=== PATIENT | female | born 1970 | race Caucasian/White ===

== ENCOUNTER 2021-01-04 13:34 | Inpatient (IN) | payer MEDICAID, SELFPAY ==
[2021-01-04] VITALS (7 sets, daily range): BP systolic 94–130; BP diastolic 58–93; PULSE 76–117; RESP 15–20; TEMP 36.8–37.2; O2SAT 97–99; BMI 23.8
--- NOTE | ~2021-01-04 | CT_ITS ---
EXAMINATION: CT ABDOMEN AND PELVIS WITH CONTRAST CLINICAL INFORMATION: Diarrhea right red blood per rectum COMPARISON: None TECHNIQUE: Multidetector volumetric images were obtained from the superior aspect of the liver through the pubic symphysis following administration 85 mL of Omnipaque 350 intravenous contrast. Sagittal and coronal reformatted images were obtained on the technologist's workstation. Oral contrast: No This CT examination was performed using dose optimization techniques as appropriate, variously including the following: *Automated exposure control *Adjustment of mA and/or kV according to patient size (this includes techniques or standardized protocols for targeted exams where dose is matched to indication/reason for exam; i.e. extremities or head) *Use of iterative reconstruction technique DLP: 350 mGy-cm FINDINGS: LUNG BASES: The visualized lung bases are unremarkable. LIVER, GALLBLADDER, AND BILIARY TREE: Liver is incompletely evaluated. In the dome of liver is not imaged on this study. 2 small low-density lesions may well be incidental likely representing cysts. The gallbladder is unremarkable with no evidence of radiopaque gallstones, gallbladder wall thickening, or obvious pericholecystic inflammatory changes. PANCREAS: Unremarkable. SPLEEN: Unremarkable. ADRENAL GLANDS: Unremarkable. KIDNEYS AND URETERS: Cystic change. No obstruction. BLADDER: Unremarkable. GASTROINTESTINAL TRACT: Bowel pattern is felt to be nonobstructing. There is felt to be an abnormal appearance to the region of the cecum a sending colon. Findings suggest a polypoid lesion measuring approximately 3. 4 x 4 centimeters. The region of the rectum is also ill-defined and anterior in the region of the vaginal vault cervical region the soft tissue is ill-defined and there is air densities. Inflammatory process here would need to be considered. ABDOMINAL WALL: No significant hernia is appreciated. LYMPH NODES: There is no bulky adenopathy. VASCULAR: Some atherosclerotic change. No aneurysmal change. PELVIC VISCERA: As described above. Ill-definition of the rectal region in the rectum and immediate adjacent vaginal vault cervical region OSSEOUS STRUCTURES: Unremarkable. CT/CT abdomen pelvis w con IMPRESSION: This exam is felt to be abnormal. I suspect a polypoid large lesion in the proximal ascending colon. Colonoscopy recommended As described also abnormal appearing rectal region with ill-definition of the area which is also the region of the vaginal vault cervical region. Soft tissue stranding with air densities. Infectious etiology would need to be considered. Underlying malignancy cannot be excluded here as well. The liver is incompletely evaluated. The dome of liver is not in the [id number]. 2 small low-density lesions in the liver likely represent cystic change but underlying metastatic disease cannot be excluded given the findings described above Prominent left pelvic ovarian veins. Congestion syndrome cannot be excluded
--- NOTE | 2021-01-04 15:22 | ED_ITS ---
HPI - Abdominal Pain General Chief Complaint: Abdominal Pain Stated Complaint: DIARRHEA RECTAL BLEEDING Time Seen by Provider: 01/04/21 15:06 Source: patient Mode of arrival: ambulatory History of Present Illness HPI narrative: 50-year-old female with a past medical history of arthritis presenting to the ED complaining of 2 episodes of brbpr since 11:00 a.m. with associated diarrhea and lower abdominal cramping. Reports more generalized fatigue and palpitations. Denies taking anticoagulation. Denies nausea, vomiting, constipation, rectal pain, dysuria/hematuria, lightheadedness/dizziness, CP/SOB MD elicited complaint: abdominal pain Related Data Allergies Allergy/AdvReac Type Severity Reaction Status Date / Time No Known Allergies Allergy Unverified 12/03/19 17:59 Review of Systems Review of Systems Constitutional: No Fever, No Chills, + Fatigue, No Malaise ENT/Mouth: No Hearing loss, No Ear Pain, No Nasal Congestion, No Sinus Pain, No Hoarseness, No sore throat Eyes: No Eye Pain, No Swelling, No Redness Cardiovascular: No Chest Pain, No SOB, + Palpitations Respiratory: No Cough, No Sputum, No Dyspnea Gastrointestinal: No Nausea, No Vomiting, + Diarrhea, No Constipation, + Abdominal pain, +brbpr Genitourinary: No irregular bleeding, No Dysuria, No Urinary Frequency, No Hematuria, No Flank Pain Musculoskeletal: No joint pain, No Myalgias, No Joint Swelling Skin: No Skin Lesions, No rash Neuro: No Weakness, No Numbness, No Paresthesias, No Dizziness, No Headache + Yes all other systems are reviewed and are negative Physical Exam Vital Signs: Vital Signs: Last Vital Signs Temp 98.8 F 01/04/21 18:00 Pulse 114 H 01/04/21 18:11 Resp 20 01/04/21 18:00 BP 106/64 01/04/21 18:11 Pulse Ox 99 01/04/21 18:00 Body Mass Index 23.8 Const: General: cooperative, healthy appearing, no acute distress, well developed, alert and awake Orientation/consciousness: patient oriented x3 Limitations: no limitations HENMT: Head: Yes normal to inspection Ears: hearing grossly normal bilaterally General nose exam: Normal external nose present Face and sinus: Yes normal facial exam Mouth: Normal oral and palatal mucosa present Throat: Yes posterior oropharynx normal Eyes: General: appearance normal, both eyes and all related structures EOM: EOMs intact bilaterally Neck: Neck: Yes normal visual inspection and Yes no meningeal signs Resp: Effort & Inspection: normal respiratory effort Auscultation: clear to auscultation bilaterally, no rales, no rhonchi and no wheezes Cardio: Rate: regular rate Heart sounds: S1 normal heart sound present and S2 normal heart sound present GI: Other: + red stool/bleeding noted on rectal Inspection: Yes normal to inspection Palpation (GI): Soft to palpation, nontender, no guarding and not rigid Rectal Exam - Female: External hemorrhoid(s) present (Without inflammation or thrombosis) : General: Yes no CVA tenderness Back/Spine/Pelvis: Back: no CVA tenderness Skin: Rashes: no rashes Wounds: no wounds Neuro: General: patient oriented x3 and no meningeal signs Gait exam (Neuro): Normal gait present Extrem: General: Yes normal to inspection Course Course Course Narrative: -mild leukocytosis of 12.3. H&H stable. Occult stool is positive. Will obtain 4 hour repeat H&H -labs otherwise unremarkable -1810--IMPRESSION: This exam is felt to be abnormal. I suspect a polypoid large lesion in the proximal ascending colon. Colonoscopy recommended ? As described also abnormal appearing rectal region with ill-definition of the area which is also the region of the vaginal vault cervical region. Soft tissue stranding with air densities. Infectious etiology would need to be considered. Underlying malignancy cannot be excluded here as well. ? The liver is incompletely evaluated. The dome of liver is not in the [id number]. ? 2 small low-density lesions in the liver likely represent cystic change but underlying metastatic disease cannot be excluded given the findings described above ? Prominent left pelvic ovarian veins. Congestion syndrome cannot be excluded >> GI consulted -spoke to GI Dr. Tian, recommended patient be admitted, clear liquid diet can be scoped on Saturday -1835--repeat H&H with dropped to 10.2 /30.2 > results discussed with patient with diplomatic interpreter MDM - Abdominal Pain MDM Narrative Medical decision making narrative: 50-year-old female with a past medical history of arthritis presenting to the ED complaining of 2 episodes of brbpr since 11:00 a.m. with associated diarrhea and lower abdominal cramping. Reports more generalized fatigue and palpitations. On exam tachycardic, NAD, nontoxic appearing, abdomen soft/nontender, no CVAT, red stool noted on rectal with external hemorrhoids. Concern for GI bleed vs hemorrhoidal bleeding. Rule out anemia and infectious etiology Plan: Labs, UA, CT AP, occult stool, IVF, re-evaluated Medical Records Attestation: I reviewed the patient's medical records. Lab Data Attestation: I reviewed the patient's lab results. Result diagrams: 01/04/21 17:35 01/04/21 15:30 Labs: Lab Results 01/04/21 01/04/21 01/04/21 Range/Units 15:29 15:30 15:30 WBC 12.3 H (4.8-10.8) X10*3/uL RBC 3.90 L (4.20-5.50) X10*6/uL Hgb 12.0 (12.0-16.0) g/dl Hct 35.1 L (37-47) % MCV 90.0 (80-98) fL MCH 30.8 (27.0-33.0) pg MCHC 34.2 (31.0-35.0) g/dl RDW 13.0 (11.0-16.0) % Plt Count 270 (160-400) X10*3/uL MPV 10.3 (9.4-12.3) fL Immature Gran % (Auto) 0.3 (0.0-0.4) % Neut % (Auto) 79.2 H (45-73) % Lymph % (Auto) 12.1 L (20-40) % Bartholomew % (Auto) 8.0 (2-11) % Eos % (Auto) 0.2 (0-4) % Baso % (Auto) 0.2 (0-2) % Lymph # (Auto) 1.5 (1.2-4.9) X10*3/uL [place]omew # (Auto) 1.0 (0.1-1.2) X10*3/uL Eos # (Auto) 0.0 (0.0-0.4) X10*3/uL Baso # (Auto) 0.0 (0.0-0.2) X10*3/uL Abs Immat Gran (auto) 0.04 H (0.00-0.03) X10*3/uL Absolute Neuts (auto) 9.8 H (2.0-8.3) X10*3/uL Absolute Nucleated RBC 0.000 (0.0-0.012) X10*3/uL Nucleated RBC % (auto) 0.0 (0.0-0.2) /100WBC Sodium 137 (135-145) mmol/L Potassium 3.6 (3.3-5.1) mmol/L Chloride 111 H (96-108) mmol/L Carbon Dioxide 18 L (22-29) mmol/L Anion Gap 12 (12-20) BUN 10 (9-16) mg/dL Creatinine 0.67 (0.5-1.4) mg/dL Estim Creat Clear Calc 80.3 Estimated GFR > 60 Random Glucose 121 H (60-115) mg/dL Calcium 8.6 (8.4-10.2) mg/dL Magnesium 1.8 (1.6-2.6) mg/dL Total Bilirubin 0.2 (0.0-1.0) mg/dL Direct Bilirubin < 0.2 (0.0-0.5) mg/dL AST 11 (5-31) U/L ALT 6 (0-31) U/L Alkaline Phosphatase 52 (39-117) U/L Total Protein 6.3 L (6.5-8.0) g/dL Albumin 3.7 (3.5-5.0) g/dL Lipase 6 L (8-78) U/L Urine Color Urine Appearance Urine pH (5.0-8.0) Ur Specific [place] (1.005-1.025) Urine Protein (NEG-TRACE) MG/DL Urine Glucose (UA) (NEG) MG/DL Urine Ketones (NEG) MG/DL Urine Blood (NEG) Urine Nitrite (NEG) Ur Leukocyte Esterase (NEG) Urine Test (NEGATIVE) Stool Occult Blood POSITIVE (NEGATIVE) 01/04/21 01/04/21 01/04/21 Range/Units 17:35 17:37 17:37 WBC 12.7 H (4.8-10.8) X10*3/uL RBC 3.30 L (4.20-5.50) X10*6/uL Hgb 10.2 L (12.0-16.0) g/dl Hct 30.2 L (37-47) % MCV 91.5 (80-98) fL MCH 30.9 (27.0-33.0) pg MCHC 33.8 (31.0-35.0) g/dl RDW 13.1 (11.0-16.0) % Plt Count 237 (160-400) X10*3/uL MPV 10.0 (9.4-12.3) fL Immature Gran % (Auto) 0.6 H (0.0-0.4) % Neut % (Auto) 83.5 H (45-73) % Lymph % (Auto) 10.2 L (20-40) % Bartholomew % (Auto) 5.4 (2-11) % Eos % (Auto) 0.1 (0-4) % Baso % (Auto) 0.2 (0-2) % Lymph # (Auto) 1.3 (1.2-4.9) X10*3/uL [place]omew # (Auto) 0.7 (0.1-1.2) X10*3/uL Eos # (Auto) 0.0 (0.0-0.4) X10*3/uL Baso # (Auto) 0.0 (0.0-0.2) X10*3/uL Abs Immat Gran (auto) 0.07 H (0.00-0.03) X10*3/uL Absolute Neuts (auto) 10.6 H (2.0-8.3) X10*3/uL Absolute Nucleated RBC 0.000 (0.0-0.012) X10*3/uL Nucleated RBC % (auto) 0.0 (0.0-0.2) /100WBC Sodium (135-145) mmol/L Potassium (3.3-5.1) mmol/L Chloride (96-108) mmol/L Carbon Dioxide (22-29) mmol/L Anion Gap (12-20) BUN (9-16) mg/dL Creatinine (0.5-1.4) mg/dL Estim Creat Clear Calc Estimated GFR Random Glucose (60-115) mg/dL Calcium (8.4-10.2) mg/dL Magnesium (1.6-2.6) mg/dL Total Bilirubin (0.0-1.0) mg/dL Direct Bilirubin (0.0-0.5) mg/dL AST (5-31) U/L ALT (0-31) U/L Alkaline Phosphatase (39-117) U/L Total Protein (6.5-8.0) g/dL Albumin (3.5-5.0) g/dL Lipase (8-78) U/L Urine Color YELLOW Urine Appearance CLEAR Urine pH 5.5 (5.0-8.0) Ur Specific [place] <= 1.005 (1.005-1.025) Urine Protein NEG (NEG-TRACE) MG/DL Urine Glucose (UA) NEG (NEG) MG/DL Urine Ketones 15 (NEG) MG/DL Urine Blood NEG (NEG) Urine Nitrite NEG (NEG) Ur Leukocyte Esterase NEG (NEG) Urine Test NEGATIVE (NEGATIVE) Stool Occult Blood (NEGATIVE) Discharge Plan Discharge Clinical Impression: Acute GI bleeding, Lesion of colon Patient Disposition: Admitted As Inpatient PENDING SALE TO [facility] Past Medical History Attestation statement: The following information was validated with the patient. Medical History (Updated 01/04/21 @ 18:48 by SAVITA Romero) Arthritic gait Arthritis Social History Social History Alcohol intake: unknown Patient Tobacco Use Status: Tobacco use Unknown Use of substances other than those prescribed or required for medical reasons: No Advance Directives: No Advance Directives Information Provided: Yes Patient : No
[2021-01-04] MEDS: 0.9 % Sodium Chloride 1,000 ML 999 ML IVCONT (15:31)
[2021-01-04 15:37] LABS: MANUAL DIFF FLAG NO
[2021-01-04 15:39] LABS: OBS Int Ctl Valid YES; OBS1 POSITIVE (NEGATIVE)
[2021-01-04 15:42] LABS: Basophils Percent Auto 0.2 % (0-2); Eosinophils Percent Auto 0.2 % (0-4); Hematocrit 35.1 % (37-47); Imm Gran Abs Auto 0.04 X10*3/uL (0.00-0.03); Imm Gran Pct Auto 0.3 % (0.0-0.4); Lymphocytes Absolute Auto 1.5 X10*3/uL (1.2-4.9); Lymphocytes Percent Auto 12.1 % (20-40); Mean Corpuscular HGB Conc 34.2 g/dl (31.0-35.0); Mean Corpuscular Hemoglobin 30.8 pg (27.0-33.0); Mean Platelet Volume 10.3 fL (9.4-12.3); Neutrophils Absolute Auto 9.8 X10*3/uL (2.0-8.3); Neutrophils Percent Auto 79.2 % (45-73); Platelet Count 270 X10*3/uL (160-400); White Blood Count 12.3 X10*3/uL (4.8-10.8)
[2021-01-04 15:56] LABS: Alanine Aminotransferase 6 U/L (0-31); Albumin Level 3.7 g/dL (3.5-5.0); Alkaline Phosphatase 52 U/L (39-117); Anion Gap 12 (12-20); Aspartate Amino Transferase 11 U/L (5-31); Bilirubin Direct < 0.2 mg/dL (0.0-0.5); Bilirubin Total 0.2 mg/dL (0.0-1.0); Blood Urea Nitrogen 10 mg/dL (9-16); Calcium 8.6 mg/dL (8.4-10.2); Carbon Dioxide 18 mmol/L (22-29); Chloride 111 mmol/L (96-108); Creatinine Clr Calc Pharmacy 80.3; Estimated Glomerular Filt Rate > 60; Glucose Random 121 mg/dL (60-115); Lipase 6 U/L (8-78); Magnesium 1.8 mg/dL (1.6-2.6); Potassium 3.6 mmol/L (3.3-5.1); Sodium 137 mmol/L (135-145); Total Protein 6.3 g/dL (6.5-8.0)
--- NOTE | 2021-01-04 16:38 | PC.NURSE ---
Pt had a large BM with bright red blood.
[2021-01-04] MEDS: iohexoL 350 MG/ML 100 ML INFUS..BTL IV (17:02)
[2021-01-04 17:46] LABS: MANUAL DIFF FLAG NO
[2021-01-04 17:51] LABS: Basophils Percent Auto 0.2 % (0-2); Eosinophils Percent Auto 0.1 % (0-4); Hematocrit 30.2 % (37-47); Hemoglobin 10.2 g/dl (12.0-16.0); Imm Gran Abs Auto 0.07 X10*3/uL (0.00-0.03); Imm Gran Pct Auto 0.6 % (0.0-0.4); Lymphocytes Absolute Auto 1.3 X10*3/uL (1.2-4.9); Lymphocytes Percent Auto 10.2 % (20-40); Mean Corpuscular HGB Conc 33.8 g/dl (31.0-35.0); Mean Corpuscular Hemoglobin 30.9 pg (27.0-33.0); Mean Corpuscular Volume 91.5 fL (80-98); Monocytes Absolute Auto 0.7 X10*3/uL (0.1-1.2); Monocytes Percent Auto 5.4 % (2-11); Neutrophils Absolute Auto 10.6 X10*3/uL (2.0-8.3); Neutrophils Percent Auto 83.5 % (45-73); Platelet Count 237 X10*3/uL (160-400); Red Cell Distribution Width 13.1 % (11.0-16.0); White Blood Count 12.7 X10*3/uL (4.8-10.8)
[2021-01-04 17:52] LABS: Appearance Urine CLEAR; Color Urine YELLOW; Glucose Urine UA NEG (NEG); Leukocyte Esterase Urine NEG (NEG); Nitrite Urine NEG (NEG); PH 5.5 (5.0-8.0); Specific Gravity - Urine <= 1.005 (1.005-1.025); Urine Blood NEG (NEG); Urine Ketones 15 MG/DL (NEG); Urine Protein NEG (NEG-TRACE)
[2021-01-04 17:58] LABS: UPreg QC Valid YES; Urine Pregnancy NEGATIVE (NEGATIVE)
--- NOTE | 2021-01-04 18:58 | PHA.MEDREC ---
Pharmacy Consult ? Medication Reconciliation Pharmacy has completed the medication reconciliation. Patient is on no prescription or over the counter medications. Shi Tyler, PharmD [phone]
--- NOTE | 2021-01-04 19:21 | PC.NURSE ---
This RN to bedside to assist primary RN. Pt aaox4, resting on stretcher in NAD, breathing with ease on RA. Pt denies abd pain, c/o nausea and hunger. Pt requesting PO, is aware she is on a clear liquid diet only, is agreeable. This RN informs pt that this RN will inform provider of nausea and request meds for nausea control prior to providing PO. Pt is agreeable. Pt with family at bedside at this time. Pt NSR on cardiac care nurse, VSS. Pt stretcher in low locked position, rails raised, call ervin within reach. Pt covid swab obtained and sent for processing.
--- NOTE | 2021-01-04 19:24 | PC.NURSE ---
Pt's stepdaughter, Evon Frey, can be reached at [phone] with updates/questions/concerns.
[2021-01-04] MEDS: ondansetron HCL 4 MG/2 ML VIAL IVPUSH (19:31)
[2021-01-04 19:47] LABS: COVID-19 Test Negative (Negative)
--- NOTE | 2021-01-04 20:07 | P.CONOB_ITS ---
ZIPPER TRIMMER HAND - CN: HPI Data of Consult Consult date: 01/04/21 Primary Care Provider: Unknown Physician Consult Narrative Narrative: I was consulted regarding Mary Beth Padilla who is a 50 year old female who presented emergency room with rectal bleeding, CT scan showed the following: The region of the rectum is also ill-defined and anterior in the region of the vaginal vault cervical region the soft tissue is ill-defined and there is air densities. Inflammatory process here would need to be considered. The patient has regular menses, No pelvic pain or abnormal vaginal discharge, no additional obgyn hospitalist physician complaints. 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 - Review of Systems Review of Systems ROS Unobtainable: All systems reviewed & are unremarkable except as noted in HPI and below OB PMFSH Past Medical History Medical History (Updated 01/04/21 @ 20:16 by Sai Mcclure MD) Arthritic gait Arthritis Social History Social History Alcohol intake: unknown Patient Tobacco Use Status: Tobacco use Unknown Use of substances other than those prescribed or required for medical reasons: No Advance Directives: No Advance Directives Information Provided: Yes Patient : No Meds Allergies Allergy/AdvReac Type Severity Reaction Status Date / Time No Known Allergies Allergy Unverified 12/03/19 17:59 Active Medications: Current Medications Pharmacy Consult (Consult Rx Perform Med Rec) 1 each MISCELLANE ONCE PRN PRN Reason: Consult order Home Medications Medication Instructions Recorded Confirmed Last Taken Type No Known Home Meds 01/04/21 01/04/21 Unknown History [employer]IP[employer]IMMER HAND Physical Exam Vitals Vital signs: Temp Pulse Resp BP Pulse Ox 98.8 F 93 15 104/58 L 99 01/04/21 19:21 01/04/21 19:21 01/04/21 19:21 01/04/21 19:21 01/04/21 19:21 Body Mass Index 23.8 Female Genitalia (Pelvic) Bladder/Urethra: Normal meatus Vulva: No lesions Vagina: Nontender, No erythema and Normal discharge Cervix: Grossly normal, No discharge and No cervical motion tenderness Uterus: Normal size Adnexa/Parametria: Adnexal Tenderness: None, Adnexal Mass: None, Parametrial Tenderness: None and Parametrial Mass: None ZIPPER TRIMMER HAND - Results Labs CBC & Chem 7: 01/04/21 17:35 01/04/21 15:30 Labs: Short CBC 01/04/21 01/04/21 Range/Units 15:30 17:35 WBC 12.3 H 12.7 H (4.8-10.8) X10*3/uL Hgb 12.0 10.2 L (12.0-16.0) g/dl Hct 35.1 L 30.2 L (37-47) % Plt Count 270 237 (160-400) X10*3/uL BMP 01/04/21 15:30 Sodium 137 Potassium 3.6 Chloride 111 H Carbon Dioxide 18 L BUN 10 Creatinine 0.67 Calcium 8.6 Liver Function 01/04/21 Range/Units 15:30 Total Bilirubin 0.2 (0.0-1.0) mg/dL Direct Bilirubin < 0.2 (0.0-0.5) mg/dL AST 11 (5-31) U/L ALT 6 (0-31) U/L Alkaline Phosphatase 52 (39-117) U/L Albumin 3.7 (3.5-5.0) g/dL Urine 01/04/21 01/04/21 Range/Units 17:37 17:37 Urine Color YELLOW Urine Appearance CLEAR Urine pH 5.5 (5.0-8.0) Ur Specific [place] <= 1.005 (1.005-1.025) Urine Protein NEG (NEG-TRACE) MG/DL Urine Glucose (UA) NEG (NEG) MG/DL Urine Test NEGATIVE (NEGATIVE) Imaging CT scan - abdomen: Radiologist's impression: ITS Impressions Abdomen/Pelvis CT 01/04/21 15:23 IMPRESSION: This exam is felt to be abnormal. I suspect a polypoid large lesion in the proximal ascending colon. Colonoscopy recommended As described also abnormal appearing rectal region with ill-definition of the area which is also the region of the vaginal vault cervical region. Soft tissue stranding with air densities. Infectious etiology would need to be considered. Underlying malignancy cannot be excluded here as well. The liver is incompletely evaluated. The dome of liver is not in the [id number]. 2 small low-density lesions in the liver likely represent cystic change but underlying metastatic disease cannot be excluded given the findings described above Prominent left pelvic ovarian veins. Congestion syndrome cannot be excluded Assessment and Plan (1) Abnormal CT scan: Status: Acute GC and chlamydia taken, urine test was done was negative, discussed with the patient normal finding on pelvic exam, and CT scan findings that cannot be identified on thepelvic exam . The patient was reassured and instructed to call in case of any future concerns abnormal bleeding, vaginal discharge pelvic pain or any other obgyn hospitalist physician concerns.
--- NOTE | 2021-01-04 20:38 | PC.NURSE ---
PATIENT IS ALERT AND ORIENTED, DR WHALEY PREFORMING A PELVIC WITH THIS RN WITNESS, SWABS COLLECTED. DR. WHALEY INFORMING PATIENT WITH SOFTWARE DATABASE ARCHITECT FOR ASSISTANCE THAT THERE WAS NO NOTICEABLE BLEEDING ABNORMALITIES OR DISCHARGE NOTED. SWABS SENT BY THIS RN. HOSPITALIST AT BEDSIDE FOR EVALUATION OF PATIENT FOR ADMISSION TO THE HOSPITAL. NO EPISODES OF BLEEDING NOTED BY THIS RN. AWAITING HOSPITALIST ORDERS AND ROOM ASSIGNMENT.
--- NOTE | 2021-01-04 21:33 | PM.EVENT ---
Event Note Date of Service: 01/04/21 Event Note: GI--I spoke with SAVITA Romero regarding the case. I recommended admission, clear liquid diet, and F/U Hgb's. I will see patient for GI consult on 01/05/2021, order a bowel prep for later in the day on 01/05, and plan for a colonoscopy on Saturday, 01/06. Thanks
--- NOTE | 2021-01-04 22:20 | P.HPHOSP_ITS ---
History of Present Illness Date of Service: 01/04/21 Chief Complaint: GI bleed 50-year-old female with no significant past medical history presents to the hospital with multiple episodes of acute GI bleed that started around 11:00 a.m.. Patient history is obtained with the help of venture capital analyst at bedside. Patient reports that since 11:00 a.m. she had 10 episodes of acute bright red blood per rectum. She denies having any abdominal pain or previous similar episodes. Denies having any chest pain palpitations, no dizziness, no headache or change in vision. Patient denies using any NSAIDs. She reports some diarrhea with no constipation. Denies any urinary symptoms and no lower extremity edema. On further questioning patient does report about 10 lb unintentional weight loss in the past 10 years. patient hemodynamically stable with No significant abnormal vitals Labs are significant for WBC count of 12.7, initial hemoglobin of 12 which dropped to 10.2 on repeat H&H about 2 hours later, labs otherwise unremarkable Abdominal CT shows polypoid large lesion in the proximal ascending colon, rectal region with ill definition of the area which is also region of the vaginal vault/cervical region. Soft tissue stranding with air densities. Infectious etiology would need to be considered. Ob Gyne was consulted, patient underwent pelvic exam in the ED while I was present, no abnormality on the pelvic exam was found. Gastroenterology was also consulted, recommended admission, placing on clear liq uid diet, a starting bowel regiment with plan for colonoscopy on Saturday Review of Systems Review of Systems: Yes all other systems are reviewed and are negative ON LICENSE OF [facility] Medical History Arthritic gait Arthritis Family History (Updated 01/05/21 @ 06:16 by Milton Schulz MD) Maternal Aunt Breast cancer Mother Diabetes Father Colon cancer Diabetes Hypertension Pertinent family history: Colon cancer in father Surgical History (Updated 01/05/21 @ 06:17 by Milton Schulz MD) No pertinent past surgical history Social History Alcohol intake: unknown Patient Tobacco Use Status: Tobacco use Unknown Use of substances other than those prescribed or required for medical reasons: No Advance Directives: No Advance Directives Information Provided: Yes Patient : No Meds Allergies Allergy/AdvReac Type Severity Reaction Status Date / Time No Known Allergies Allergy Unverified 12/03/19 17:59 Active Medications: Current Medications Pharmacy Consult (Consult Rx Perform Med Rec) 1 each MISCELLANE ONCE PRN PRN Reason: Consult order Home Medications Medication Instructions Recorded Confirmed Last Taken Type No Known Home Meds 01/04/21 01/04/21 Unknown History Physical Exam Vital Signs and Narrative: Vital Signs: Last Vital Signs Temp 99 F 01/04/21 21:34 Pulse 85 01/04/21 21:34 Resp 20 01/04/21 21:34 BP 103/59 L 01/04/21 21:34 Pulse Ox 97 01/04/21 21:34 Body Mass Index 23.8 Results Labs CBC and Chem 7: 01/04/21 22:50 01/04/21 15:30 Labs: Laboratory Results - last 24 hr 01/04/21 01/04/21 01/04/21 15:29 15:30 15:30 MCV 90.0 MCH 30.8 MCHC 34.2 RDW 13.0 Plt Count 270 MPV 10.3 Immature Gran % (Auto) 0.3 Neut % (Auto) 79.2 H Lymph % (Auto) 12.1 L [place] % (Auto) 8.0 Eos % (Auto) 0.2 Baso % (Auto) 0.2 Lymph # (Auto) 1.5 [place] # (Auto) 1.0 Eos # (Auto) 0.0 Baso # (Auto) 0.0 Abs Immat Gran (auto) 0.04 H Absolute Neuts (auto) 9.8 H Absolute Nucleated RBC 0.000 Nucleated RBC % (auto) 0.0 Anion Gap 12 Estim Creat Clear Calc 80.3 Estimated GFR > 60 Random Glucose 121 H Calcium 8.6 Magnesium 1.8 Total Bilirubin 0.2 Direct Bilirubin < 0.2 AST 11 ALT 6 Alkaline Phosphatase 52 Total Protein 6.3 L Albumin 3.7 Lipase 6 L Urine Color Urine Appearance Urine pH Ur Specific [place] Urine Protein Urine Glucose (UA) Urine Ketones Urine Blood Urine Nitrite Ur Leukocyte Esterase Urine Test Stool Occult Blood POSITIVE COVID-19 (MANDEEP) COVID-19 Clin Com 01/04/21 01/04/21 01/04/21 17:35 17:37 17:37 MCV 91.5 MCH 30.9 MCHC 33.8 RDW 13.1 Plt Count 237 MPV 10.0 Immature Gran % (Auto) 0.6 H Neut % (Auto) 83.5 H Lymph % (Auto) 10.2 L [place] % (Auto) 5.4 Eos % (Auto) 0.1 Baso % (Auto) 0.2 Lymph # (Auto) 1.3 [place] # (Auto) 0.7 Eos # (Auto) 0.0 Baso # (Auto) 0.0 Abs Immat Gran (auto) 0.07 H Absolute Neuts (auto) 10.6 H Absolute Nucleated RBC 0.000 Nucleated RBC % (auto) 0.0 Anion Gap Estim Creat Clear Calc Estimated GFR Random Glucose Calcium Magnesium Total Bilirubin Direct Bilirubin AST ALT Alkaline Phosphatase Total Protein Albumin Lipase Urine Color YELLOW Urine Appearance CLEAR Urine pH 5.5 Ur Specific [place] <= 1.005 Urine Protein NEG Urine Glucose (UA) NEG Urine Ketones 15 Urine Blood NEG Urine Nitrite NEG Ur Leukocyte Esterase NEG Urine Test NEGATIVE Stool Occult Blood COVID-19 (MANDEEP) COVID-19 [employer] Com 01/04/21 19:18 MCV MCH MCHC RDW Plt Count MPV Immature Gran % (Auto) Neut % (Auto) Lymph % (Auto) [place] % (Auto) Eos % (Auto) Baso % (Auto) Lymph # (Auto) [place] # (Auto) Eos # (Auto) Baso # (Auto) Abs Immat Gran (auto) Absolute Neuts (auto) Absolute Nucleated RBC Nucleated RBC % (auto) Anion Gap Estim Creat Clear Calc Estimated GFR Random Glucose Calcium Magnesium Total Bilirubin Direct Bilirubin AST ALT Alkaline Phosphatase Total Protein Albumin Lipase Urine Color Urine Appearance Urine pH Ur Specific [place] Urine Protein Urine Glucose (UA) Urine Ketones Urine Blood Urine Nitrite Ur Leukocyte Esterase Urine Test Stool Occult Blood COVID-19 (MANDEEP) Negative COVID-19 Clin Com See Note Imaging Radiologist's Impressions: Impressions Abdomen/Pelvis CT 01/04/21 15:23 IMPRESSION: This exam is felt to be abnormal. I suspect a polypoid large lesion in the proximal ascending colon. Colonoscopy recommended As described also abnormal appearing rectal region with ill-definition of the area which is also the region of the vaginal vault cervical region. Soft tissue stranding with air densities. Infectious etiology would need to be considered. Underlying malignancy cannot be excluded here as well. The liver is incompletely evaluated. The dome of liver is not in the [id number]. 2 small low-density lesions in the liver likely represent cystic change but underlying metastatic disease cannot be excluded given the findings described above Prominent left pelvic ovarian veins. Congestion syndrome cannot be excluded Assessment and Plan (1) Acute GI bleeding: Status: Acute (2) Lesion of colon: Status: Acute (3) Abnormal CT scan: Status: Acute This is a 50-year-old female with no significant past medical history who presents to the hospital with GI bleed found to have abnormal CT scan with lesio n in the abdomen suggestive of malignancy # GI bleed - most likely secondary to colon malignancy - CT results as above - a Gastroenterology consult, patient will plan for colonoscopy on Saturday a.m. - H&H stable, repeat q.12 hours # abnormal CT scan with lesion of colon - does report weight loss and family history of colon cancer - most likely malignant malignant - GI consult - colonoscopy on Saturday DVT prophylaxis heparin subQ Quality Stroke Does the patient have a stroke diagnosis?: No VTE Prior VTE?: No VTE Risk Level:: Medical - moderate - high VTE Device Contraindication: Treatment Not Indicated VTE Drug Contraindication: N/A - Med Ordered
[2021-01-04 22:56] LABS: Hematocrit 29.4 % (37-47); Hemoglobin 10.1 g/dl (12.0-16.0)
[2021-01-05 00:09] VITALS: BP 110/63; PULSE 90; RESP 20; TEMP 36.7; O2SAT 99
--- NOTE | 2021-01-05 00:10 | PC.NURSE ---
CALLING HOSPITALIST FOR CLARIFICATION FOR ANTICOAGULATION THERAPY FOR PATIENT. PROVIDER STATING TO HOLD BLOOD THINNERS AT THIS TIME.
[2021-01-05 03:38] VITALS: BP 101/67; PULSE 91; RESP 22; O2SAT 98
[2021-01-05 05:10] LABS: CT PCR NOT DETECTED (Not Detect.); NG PCR NOT DETECTED (Not Detect.)
[2021-01-05 05:49] VITALS: BP 103/69; PULSE 83; RESP 19; TEMP 37.3; O2SAT 100
[2021-01-05 07:15] LABS: MANUAL DIFF FLAG NO
[2021-01-05 07:17] LABS: Basophils Percent Auto 0.3 % (0-2); Eosinophils Absolute Auto 0.1 X10*3/uL (0.0-0.4); Eosinophils Percent Auto 0.5 % (0-4); Hematocrit 29.2 % (37-47); Imm Gran Abs Auto 0.04 X10*3/uL (0.00-0.03); Imm Gran Pct Auto 0.4 % (0.0-0.4); Lymphocytes Absolute Auto 2.4 X10*3/uL (1.2-4.9); Lymphocytes Percent Auto 25.4 % (20-40); Mean Corpuscular HGB Conc 34.2 g/dl (31.0-35.0); Mean Corpuscular Hemoglobin 30.6 pg (27.0-33.0); Mean Corpuscular Volume 89.3 fL (80-98); Mean Platelet Volume 9.9 fL (9.4-12.3); Monocytes Absolute Auto 0.9 X10*3/uL (0.1-1.2); Monocytes Percent Auto 9.4 % (2-11); Neutrophils Absolute Auto 5.9 X10*3/uL (2.0-8.3); Platelet Count 233 X10*3/uL (160-400); Red Blood Count 3.27 X10*6/uL (4.20-5.50); Red Cell Distribution Width 13.2 % (11.0-16.0); White Blood Count 9.3 X10*3/uL (4.8-10.8)
[2021-01-05 07:56] LABS: Anion Gap 9 (12-20); Blood Urea Nitrogen 10 mg/dL (9-16); Calcium 8.8 mg/dL (8.4-10.2); Carbon Dioxide 23 mmol/L (22-29); Chloride 111 mmol/L (96-108); Creatinine Clr Calc Pharmacy 81.5; Estimated Glomerular Filt Rate > 60; Glucose Random 94 mg/dL (60-115); Potassium 4.2 mmol/L (3.3-5.1); Sodium 139 mmol/L (135-145)
--- NOTE | 2021-01-05 08:52 | MHC.CM.PN ---
Met with patient and diplomatic interpreter/translator in regards to discharge planning. Patient lives with her daughter and grandson, ambulates independently and had no services prior to coming to the hospital. No services anticipated to be needed because patient is not homebound. PCP is at [facility]. Patient denies having a HCP. Information provided. Patient not interested in completing one at this time. Patient has transportation when medically stable. Continue to monitor for d/c needs.
[2021-01-05 10:25] VITALS: BMI 23.8
[2021-01-05 10:32] VITALS: BP 95/72; PULSE 83; RESP 17; TEMP 36.3; O2SAT 99
[2021-01-05] MEDS: Nicotine 14 MG PATCH.TD24 TRANSDERMA (10:37)
--- NOTE | 2021-01-05 11:23 | HO.PM.IMPN ---
Subjective Subjective Date of Service: 01/05/21 Interval History: seen and examined this morning follow up for GI bleeding and new colon mass continues to have rectal bleeding. no abdominal pain. denies dizziness. feeling anxious Review of Systems Review of Systems: Yes all other systems are reviewed and are negative Constitutional Constitutional: Denies chills and Denies fever(s) Cardiovascular Cardiovascular: Denies chest pain Respiratory Respiratory: Denies cough Gastrointestinal Gastrointestinal: Denies abdominal pain, Reports hematochezia, Denies constipation and Denies vomiting Physical Exam Vital Signs: Vital Signs: Last Vital Signs Temp 97.4 F 01/05/21 10:32 Pulse 83 01/05/21 10:32 Resp 17 01/05/21 10:32 BP 95/72 01/05/21 10:32 Pulse Ox 99 01/05/21 10:32 Body Mass Index 23.8 Const: General: healthy appearing, comfortable, alert and awake Nutritional Appearance: well nourished Orientation/consciousness: patient oriented x3 HENMT: Head: Yes normocephalic and Yes atraumatic Eyes: Sclerae: sclerae normal Pupils: Equal, round and reactive pupils present Chest: Chest palpation & inspection: normal inspection of the chest Resp: Effort & Inspection: normal respiratory effort and no respiratory distress Auscultation: clear to auscultation bilaterally Cardio: Rate: regular rate Rhythm: regular rhythm GI: Inspection: No distended Palpation (GI): Soft to palpation and nontender Neuro: General: patient oriented x3 Cranial nerves: Yes CN's II-XII intact bilaterally, Yes Equal, round and reactive pupils present and Yes Bilaterally intact EOM present Objective Data Active Medications Acetaminophen (Acetaminophen 325 Mg Tablet) 650 mg PO Q6H PRN PRN Reason: Pain, Mild (Pain Scale 1-3) Hydroxyzine HCl (Hydroxyzine Hcl 25 Mg Tablet) 25 mg PO Q8H PRN PRN Reason: Anxiety Lactated Ringer's (Lr) 1,000 mls @ 100 mls/hr IVCONT .Q10H [facility] Nicotine (Nicotine 14 Mg Patch.Td24) 14 mg TRANSDERMA DAILY [facility] Last Admin: 01/05/21 10:37 Dose: 14 mg Documented by: JOSE Ondansetron HCl (Ondansetron Hcl 4 Mg/2 Ml Vial) 4 mg IVPUSH Q8H PRN PRN Reason: Nausea and Vomiting Pharmacy Consult (Consult Rx Perform Med Rec) 1 each MISCELLANE ONCE PRN PRN Reason: Consult order Sodium Chloride (0.9 % Sodium Chloride Flush 3 Ml Syringe) 3 ml IVFLUSH QSHIFT [facility] Last Admin: 01/05/21 08:38 Dose: Not Given Documented by: CAILTYN Non-Admin Reason: IV Running Labs CBC & Chem 7: 01/05/21 07:03 01/05/21 07:04 Labs: Laboratory Results - last 24 hr 01/04/21 01/04/21 01/04/21 15:29 15:30 15:30 MCV 90.0 MCH 30.8 MCHC 34.2 RDW 13.0 Plt Count 270 MPV 10.3 Immature Gran % (Auto) 0.3 Neut % (Auto) 79.2 H Lymph % (Auto) 12.1 L [place] % (Auto) 8.0 Eos % (Auto) 0.2 Baso % (Auto) 0.2 Lymph # (Auto) 1.5 [place] # (Auto) 1.0 Eos # (Auto) 0.0 Baso # (Auto) 0.0 Abs Immat Gran (auto) 0.04 H Absolute Neuts (auto) 9.8 H Absolute Nucleated RBC 0.000 Nucleated RBC % (auto) 0.0 Anion Gap 12 Estim Creat Clear Calc 80.3 Estimated GFR > 60 Random Glucose 121 H Calcium 8.6 Magnesium 1.8 Total Bilirubin 0.2 Direct Bilirubin < 0.2 AST 11 ALT 6 Alkaline Phosphatase 52 Total Protein 6.3 L Albumin 3.7 Lipase 6 L Urine Color Urine Appearance Urine pH Ur Specific [place] Urine Protein Urine Glucose (UA) Urine Ketones Urine Blood Urine Nitrite Ur Leukocyte Esterase Urine Test Stool Occult Blood POSITIVE Chlam trachomat DNA PCR COVID-19 ([facility]) COVID-19 Clin Com N.gonorrhoeae DNA (PCR) 01/04/21 01/04/21 01/04/21 17:35 17:37 17:37 MCV 91.5 MCH 30.9 MCHC 33.8 RDW 13.1 Plt Count 237 MPV 10.0 Immature Gran % (Auto) 0.6 H Neut % (Auto) 83.5 H Lymph % (Auto) 10.2 L [place] % (Auto) 5.4 Eos % (Auto) 0.1 Baso % (Auto) 0.2 Lymph # (Auto) 1.3 [place] # (Auto) 0.7 Eos # (Auto) 0.0 Baso # (Auto) 0.0 Abs Immat Gran (auto) 0.07 H Absolute Neuts (auto) 10.6 H Absolute Nucleated RBC 0.000 Nucleated RBC % (auto) 0.0 Anion Gap Estim Creat Clear Calc Estimated GFR Random Glucose Calcium Magnesium Total Bilirubin Direct Bilirubin AST ALT Alkaline Phosphatase Total Protein Albumin Lipase Urine Color YELLOW Urine Appearance CLEAR Urine pH 5.5 Ur Specific [place] <= 1.005 Urine Protein NEG Urine Glucose (UA) NEG Urine Ketones 15 Urine Blood NEG Urine Nitrite NEG Ur Leukocyte Esterase NEG Urine Test NEGATIVE Stool Occult Blood Chlam trachomat DNA PCR COVID-19 ([facility]) COVID-19 Clin Com N.gonorrhoeae DNA (PCR) 01/04/21 01/04/21 01/05/21 19:18 20:11 07:03 MCV 89.3 MCH 30.6 MCHC 34.2 RDW 13.2 Plt Count 233 MPV 9.9 Immature Gran % (Auto) 0.4 Neut % (Auto) 64.0 Lymph % (Auto) 25.4 [place] % (Auto) 9.4 Eos % (Auto) 0.5 Baso % (Auto) 0.3 Lymph # (Auto) 2.4 [place] # (Auto) 0.9 Eos # (Auto) 0.1 Baso # (Auto) 0.0 Abs Immat Gran (auto) 0.04 H Absolute Neuts (auto) 5.9 Absolute Nucleated RBC 0.000 Nucleated RBC % (auto) 0.0 Anion Gap Estim Creat Clear Calc Estimated GFR Random Glucose Calcium Magnesium Total Bilirubin Direct Bilirubin AST ALT Alkaline Phosphatase Total Protein Albumin Lipase Urine Color Urine Appearance Urine pH Ur Specific [place] Urine Protein Urine Glucose (UA) Urine Ketones Urine Blood Urine Nitrite Ur Leukocyte Esterase Urine Test Stool Occult Blood Chlam trachomat DNA PCR NOT DETECTED COVID-19 ([facility]) Negative COVID-19 Clin Com See Note N.gonorrhoeae DNA (PCR) NOT DETECTED 01/05/21 07:04 MCV MCH MCHC RDW Plt Count MPV Immature Gran % (Auto) Neut % (Auto) Lymph % (Auto) [place] % (Auto) Eos % (Auto) Baso % (Auto) Lymph # (Auto) [place] # (Auto) Eos # (Auto) Baso # (Auto) Abs Immat Gran (auto) Absolute Neuts (auto) Absolute Nucleated RBC Nucleated RBC % (auto) Anion Gap 9 L Estim Creat Clear Calc 81.5 Estimated GFR > 60 Random Glucose 94 Calcium 8.8 Magnesium Total Bilirubin Direct Bilirubin AST ALT Alkaline Phosphatase Total Protein Albumin Lipase Urine Color Urine Appearance Urine pH Ur Specific [place] Urine Protein Urine Glucose (UA) Urine Ketones Urine Blood Urine Nitrite Ur Leukocyte Esterase Urine Test Stool Occult Blood Chlam trachomat DNA PCR COVID-19 ([facility]) COVID-19 Clin Com N.gonorrhoeae DNA (PCR) Assessment and Plan (1) Abnormal CT scan: Status: Acute (2) Acute GI bleeding: Status: Acute (3) Lesion of colon: Status: Acute Assessment and Plan: This is a 50-year-old female with no significant past medical history who presents to the hospital with GI bleed found to have abnormal CT scan with lesion in the abdomen suggestive of malignancy Acute GI bleed heme + ongoing rectal bleeding most likely secondary to colon malignancy - Gastroenterology consult, plan for colonoscopy on tomorrow a.m. - follow CBC q6h abnormal CT scan with abnormal CT abdomen lesion of ascending colon and rectal region weight loss and family history of colon cancer; concerning for malignancy lesion in rectal area near vaginal vault- seen by OB, unremarkable pelvic exam - colonoscopy tomorrow, further management based on outcome Tobacco dependence Smoking cessation advised - NRT DVT prophylaxis: bautista attending: Dr. Marquis Huitron Stroke Does the patient have a stroke diagnosis?: No VTE Prior VTE?: No VTE Risk Level:: Medical - moderate - high VTE Device Contraindication: Treatment Not Indicated VTE Drug Contraindication: N/A - Med Ordered
[2021-01-05 14:10] LABS: Hematocrit 28.2 % (37-47); Hemoglobin 9.7 g/dl (12.0-16.0)
[2021-01-05] MEDS: Lactated Ringers 1,000 ML 100 ML IVCONT ×2 (14:12→23:23)
--- NOTE | 2021-01-05 14:17 | MHC.SHP ---
Pre-Procedural Eval Section A Date of Service: 01/06/21 The patient is an INPATIENT: Yes Changes since office visit: No Cold of Flu in the past 2 weeks, No New Medical Problems, No Changes in Medication and No Patient answered all questions The History & Physical has been completed within 30 days and I have reviewed it.: Yes Section B Chief Complaint: Acute GI bleed, Colon mass Allergies: Allergies Allergy/AdvReac Type Severity Reaction Status Date / Time No Known Allergies Allergy Unverified 12/03/19 17:59 Plan I have reviewed the history and physical and performed a pertinent physical examination on my patient. No changes have occurred unless specified.
--- NOTE | 2021-01-05 15:29 | PM.EVENT ---
Event Note Date of Service: 01/05/21 Event Note: GI Consult-Hx via patient with a medical diagnostic radiographer, her family, and the EMR. Imp: Lower GI bleeding with some associated diarrhea and abnormal CT of the colon suggestive of an ascending colon mass and possible rectal pathology as well. She has had a drop in Hgb, but things have been stable since admission. She has a family history of colon cancer in her father in his 70's. Her abdominal exam is benign. Rec: Colonoscopy tomorrow, 01/06, with MAC. Full consent has been obtained from her for this, including risks of bleeding and perforation. D/W patient and her 2 sisters in detail. They are comfortable with this plan. Thanks
[2021-01-05 15:56] VITALS: BP 112/61; PULSE 84; RESP 18; TEMP 36.1; O2SAT 100
[2021-01-05] MEDS: PEG 3350/Na Sulf,Bicarb,Cl/KCL 4,000 ML SOLN.RECON 4000 ML PO (16:30)
[2021-01-05 19:14] LABS: Hematocrit 26.9 % (37-47); Hemoglobin 9.3 g/dl (12.0-16.0)
[2021-01-05 19:50] VITALS: BP 96/61; PULSE 88; RESP 18; TEMP 36; O2SAT 100
[2021-01-05] MEDS: bisacodyL 5 MG TABLET.DR 10 MG PO (21:27)
--- NOTE | 2021-01-05 22:25 | CONS_ITS ---
DATE OF SERVICE: 01/05/2021 REQUESTING PHYSICIAN: SAVITA Pugh. REASON FOR CONSULTATION: Lower GI bleeding and abnormal CAT scan of colon. HISTORY OF PRESENT ILLNESS: This has been obtained from the patient with a biomedical engineering professor, from her 2 sisters, and the medical record. The patient is a 50-year-old healthy female, who describes approximately 1 or 2 days of some diarrhea at home, which then became bloody over the course of the day of admission and prompted her arrival in the ER. Prior to the past 2 days, she reports that things had been normal as far as her bowel movements are concerned. She denies any chronic diarrhea nor any previous history of bleeding. During this time, she has not had any abdominal pain, nausea, nor vomiting. The patient does describe some baseline anxiety and some anorexia on that basis, but denies any dysphagia. Many times, she will be eating things like milkshakes or Ensure as opposed to solid food because of her anxiety. She has lost about 10 pounds since the beginning of the year. Since admission here, she has been stable. She denies any abdominal pain. She has been tolerating clear liquids, but is hungry. She denies the use of any chronic aspirin nor NSAIDs. She does smoke cigarettes and marijuana, but does not use any other drugs nor alcohol. Her family history is notable for father having had colon cancer, but there is no family history of other GI malignancies nor inflammatory bowel disease. MEDICATIONS: At home, none. PAST MEDICAL HISTORY: She has some arthritis and back issues. However, she denies any history of heart disease, diabetes, stroke, nor lung disease. PAST SURGICAL HISTORY: Surgeries include a and appendectomy. SOCIAL HISTORY: She is single, but has a boyfriend. She lives with her family. She smokes cigarettes and marijuana, but does not use any alcohol. FAMILY HISTORY: As above. REVIEW OF SYSTEMS: CONSTITUTIONAL: In general, she feels well, but does have a baseline anxiety with some intermittent anorexia. SKIN: No rash. No pruritus. CARDIAC: No chest pain. PULMONARY: No coughing nor hemoptysis. GASTROINTESTINAL: As above. URINARY: No dysuria. No hematuria. NEUROLOGIC: No headache or seizures. PHYSICAL EXAMINATION: GENERAL: The patient is a pleasant, alert, well-appearing female, in no distress. VITAL SIGNS: Stable and she has been afebrile. SKIN: Warm and dry. HEENT: Anicteric sclerae. NECK: Supple without lymphadenopathy. CHEST: Clear. CARDIAC: Normal S1 and S2. ABDOMEN: Soft, nondistended. Normal bowel sounds. Nontender without palpable mass nor organomegaly. EXTREMITIES: Without edema. LABORATORY DATA: Laboratories from yesterday showed an initial white count of 12.3 and hemoglobin of 12.0 with a normal MCV and platelet count. Followup hemoglobin since admission showed hemoglobin of 10.2, 10.1, and 10.0. Her platelet count has remained normal. Her chemistries revealed normal electrolytes. BUN 10, creatinine 0.7. Normal LFTs. Albumin 3.7, lipase at 6. COVID test was negative. She had a CAT scan of the abdomen and pelvis yesterday revealing an abnormal colon in the area of the cecum and ascending colon suggesting a polypoid lesion measuring around 4 x 4 cm. The rectum was also described as abnormal with some ill-defined inflammatory changes in the rectum. There was no evidence of any bowel obstruction nor colitis. There are also 2 small lesions in the liver that were felt to represent cysts, although the radiologist describes that metastatic disease could not be excluded. IMPRESSION: Given the patient's clinical history and CT scan findings, she may very well have some type of GI malignancy involving at least the ascending colon contributing to her presentation with some lower GI bleeding. As such, she will undergo colonoscopy tomorrow with monitored anesthesia care for further evaluation. Full consent has been obtained from her for this, including risks of bleeding and perforation. At this point, things otherwise seem stable. She did have an initial drop in the hemoglobin, but this has stabilized and her abdominal exam is benign. If indeed she is found to have a colon malignancy, she may need further evaluation of her liver lesions with either MRI or ultrasound. This has been discussed in detail with the patient and her sisters. They are all comfortable with this plan. Thank you for this consultation. MD DEAN Miner/JAVIER / [id number] MTDD
[2021-01-06] VITALS (8 sets, daily range): BP systolic 88–124; BP diastolic 44–78; PULSE 81–98; RESP 16–20; TEMP 36.1–37.1; O2SAT 94–100
[2021-01-06 04:59] LABS: INTERNATIONAL NORM RATIO 1.1 (0.9-1.1); Prothrombin Time 12.2 SEC (9.9-13.0)
[2021-01-06 05:12] LABS: Anion Gap 9 (12-20); Blood Urea Nitrogen 9 mg/dL (9-16); Carbon Dioxide 26 mmol/L (22-29); Chloride 111 mmol/L (96-108); Creatinine Clr Calc Pharmacy 81.5; Estimated Glomerular Filt Rate > 60; Glucose Fasting 84 mg/dL (60-99); Sodium 142 mmol/L (135-145)
[2021-01-06 07:32] LABS: Hematocrit 27.6 % (37-47); Hemoglobin 9.6 g/dl (12.0-16.0); Mean Corpuscular HGB Conc 34.8 g/dl (31.0-35.0); Mean Corpuscular Hemoglobin 31.6 pg (27.0-33.0); Mean Corpuscular Volume 90.8 fL (80-98); Mean Platelet Volume 10.4 fL (9.4-12.3); Platelet Count 262 X10*3/uL (160-400); Red Blood Count 3.04 X10*6/uL (4.20-5.50); Red Cell Distribution Width 13.2 % (11.0-16.0); White Blood Count 7.7 X10*3/uL (4.8-10.8)
[2021-01-06] MEDS: Lactated Ringers 1,000 ML 100 ML IVCONT (09:01)
[2021-01-06] MEDS: Nicotine 14 MG PATCH.TD24 TRANSDERMA (09:01)
[2021-01-06] MEDS: LORazepam 2 MG/ML VIAL 0.5 MG IVPUSH (10:19)
--- NOTE | 2021-01-06 10:35 | HO.PM.IMPN ---
Subjective Subjective Date of Service: 01/06/21 Interval History: seen and examined this AM hungry no pain denies rectal bleed reports vaginal bleed (started her period) Review of Systems negative except interval history Physical Exam Vital Signs: Vital Signs: Last Vital Signs Temp 98.3 F 01/06/21 07:52 Pulse 85 01/06/21 07:52 Resp 20 01/06/21 07:52 BP 107/72 01/06/21 07:52 Pulse Ox 99 01/06/21 07:52 Body Mass Index 23.8 Const: Other: General - no acute distress, appears comfortable Cardiovascular - regular rate and rhythm, S1-S2 Lungs - normal respiratory effort, clear to auscultation bilaterally, no wheezing Abdomen - soft, nontender, no rebound or guarding Extremities - no edema bilaterally Neuro - awake and alert, no focal deficits Objective Data Active Medications Acetaminophen (Acetaminophen 325 Mg Tablet) 650 mg PO Q6H PRN PRN Reason: Pain, Mild (Pain Scale 1-3) Hydroxyzine HCl (Hydroxyzine Hcl 25 Mg Tablet) 25 mg PO Q8H PRN PRN Reason: Anxiety Lactated Ringer's (Lr) 1,000 mls @ 100 mls/hr IVCONT .Q10H [facility] Last Admin: 01/06/21 09:01 Dose: 100 mls/hr Documented by: JESSICA Nicotine (Nicotine 14 Mg Patch.Td24) 14 mg TRANSDERMA DAILY [facility] Last Admin: 01/06/21 09:01 Dose: 14 mg Documented by: JESSICA Ondansetron HCl (Ondansetron Hcl 4 Mg/2 Ml Vial) 4 mg IVPUSH Q8H PRN PRN Reason: Nausea and Vomiting Pharmacy Consult (Consult Rx Perform Med Rec) 1 each MISCELLANE ONCE PRN PRN Reason: Consult order Sodium Chloride (0.9 % Sodium Chloride Flush 3 Ml Syringe) 3 ml IVFLUSH QSHIFT [facility] Last Admin: 01/06/21 09:01 Dose: Not Given Documented by: JESSICA Non-Admin Reason: IV Running Labs CBC & Chem 7: 01/06/21 04:24 01/06/21 04:24 Labs: Laboratory Results - last 24 hr 01/06/21 01/06/21 01/06/21 04:24 04:24 04:24 MCV 90.8 MCH 31.6 MCHC 34.8 RDW 13.2 Plt Count 262 MPV 10.4 Absolute Nucleated RBC 0.000 Nucleated RBC % (auto) 0.0 PT 12.2 INR 1.1 Anion Gap 9 L Estim Creat Clear Calc 81.5 Estimated GFR > 60 Fasting Glucose 84 Calcium 9.0 Assessment and Plan (1) Abnormal CT scan: Status: Acute (2) Acute GI bleeding: Status: Acute (3) Lesion of colon: Status: Acute Assessment and Plan: This is a 50-year-old female with no significant past medical history who presents to the hospital with GI bleed found to have abnormal CT scan with lesion in the abdomen suggestive of malignancy Acute GI bleed heme + bleeding stopped completed prep last night -- plan for scope today concern for colonic malignancy further work up pending results of scope abnormal CT scan with abnormal CT abdomen lesion of ascending colon and rectal region weight loss and family history of colon cancer; concerning for malignancy lesion in rectal area near vaginal vault- seen by OB, unremarkable pelvic exam - colonoscopy tomorrow, further management based on outcome Tobacco dependence Smoking cessation advised NRT DVT pptx, mechanical Full Code Quality Stroke Does the patient have a stroke diagnosis?: No VTE Prior VTE?: No VTE Risk Level:: Medical - moderate - high VTE Device Contraindication: Treatment Not Indicated VTE Drug Contraindication: N/A - Med Ordered
--- NOTE | 2021-01-06 10:52 | HO.ANESPROP2 ---
[facility] Active Problems Active Problems: All Active Problems (Updated 01/04/21 @ 20:16 by Sai Mcclure MD) Abnormal CT scan (Acute) Acute GI bleeding (Acute) Lesion of colon (Acute) Past Medical History Medical History Arthritic gait Arthritis Family History Family History (Updated 01/05/21 @ 06:16 by Milton Schulz MD) Maternal Aunt Breast cancer Mother Diabetes Father Colon cancer Diabetes Hypertension Family history of problems with anesthesia: No Surgical History Surgical History (Updated 01/05/21 @ 06:17 by Milton Schulz MD) No pertinent past surgical history History of Problems with Anesthesia: No Social History Social History Household Members: Family Housing: Apartment Do you presently have visiting nurse or other home services: No Alcohol intake: unknown Patient Tobacco Use Status: Current everyday Tobacco user Substance Use Type: Marijuana service: No Current occupational status: unemployed Meds Allergies Allergy/AdvReac Type Severity Reaction Status Date / Time No Known Allergies Allergy Unverified 12/03/19 17:59 Active Medications: Current Medications Acetaminophen (Acetaminophen 325 Mg Tablet) 650 mg PO Q6H PRN PRN Reason: Pain, Mild (Pain Scale 1-3) Hydroxyzine HCl (Hydroxyzine Hcl 25 Mg Tablet) 25 mg PO Q8H PRN PRN Reason: Anxiety Lactated Ringer's (Lr) 1,000 mls @ 100 mls/hr IVCONT .Q10H [facility] Last Admin: 01/06/21 09:01 Dose: 100 mls/hr Documented by: Nicotine (Nicotine 14 Mg Patch.Td24) 14 mg TRANSDERMA DAILY [facility] Last Admin: 01/06/21 09:01 Dose: 14 mg Documented by: Ondansetron HCl (Ondansetron Hcl 4 Mg/2 Ml Vial) 4 mg IVPUSH Q8H PRN PRN Reason: Nausea and Vomiting Pharmacy Consult (Consult Rx Perform Med Rec) 1 each MISCELLANE ONCE PRN PRN Reason: Consult order Sodium Chloride (0.9 % Sodium Chloride Flush 3 Ml Syringe) 3 ml IVFLUSH QSHIFT [facility] Last Admin: 01/06/21 09:01 Dose: Not Given Documented by: Home Medications Medication Instructions Recorded Confirmed Last Taken Type No Known Home Meds 01/04/21 01/04/21 Unknown History Exam Exam Date and Time: January 06, 2021 1052 Height,Weight and Vital Signs: Height 5 ft 2 in Weight 58.967 kg Last Vital Signs Temp 98.3 F 01/06/21 07:52 Pulse 85 01/06/21 07:52 Resp 20 01/06/21 07:52 BP 107/72 01/06/21 07:52 Pulse Ox 99 01/06/21 07:52 Pertinent Lab Results Pertinent Lab Results: Laboratory Tests 01/04/21 01/04/21 01/04/21 15:29 15:30 15:30 WBC 12.3 H RBC 3.90 L Hgb 12.0 Hct 35.1 L MCV 90.0 MCH 30.8 MCHC 34.2 RDW 13.0 Plt Count 270 MPV 10.3 Immature Gran % (Auto) 0.3 Neut % (Auto) 79.2 H Lymph % (Auto) 12.1 L [place] % (Auto) 8.0 Eos % (Auto) 0.2 Baso % (Auto) 0.2 Lymph # (Auto) 1.5 [place] # (Auto) 1.0 Eos # (Auto) 0.0 Baso # (Auto) 0.0 Abs Immat Gran (auto) 0.04 H Absolute Neuts (auto) 9.8 H Absolute Nucleated RBC 0.000 Nucleated RBC % (auto) 0.0 PT INR Sodium 137 Potassium 3.6 Chloride 111 H Carbon Dioxide 18 L Anion Gap 12 BUN 10 Creatinine 0.67 Estim Creat Clear Calc 80.3 Estimated GFR > 60 Random Glucose 121 H Fasting Glucose Calcium 8.6 Magnesium 1.8 Total Bilirubin 0.2 Direct Bilirubin < 0.2 AST 11 ALT 6 Alkaline Phosphatase 52 Total Protein 6.3 L Albumin 3.7 Lipase 6 L Urine Color Urine Appearance Urine pH Ur Specific [place] Urine Protein Urine Glucose (UA) Urine Ketones Urine Blood Urine Nitrite Ur Leukocyte Esterase Urine Test Stool Occult Blood POSITIVE Chlam trachomat DNA PCR COVID-19 ([facility]) COVID-19 Clin Com N.gonorrhoeae DNA (PCR) 01/04/21 01/04/21 01/04/21 17:35 17:37 17:37 WBC 12.7 H RBC 3.30 L Hgb 10.2 L Hct 30.2 L MCV 91.5 MCH 30.9 MCHC 33.8 RDW 13.1 Plt Count 237 MPV 10.0 Immature Gran % (Auto) 0.6 H Neut % (Auto) 83.5 H Lymph % (Auto) 10.2 L [place] % (Auto) 5.4 Eos % (Auto) 0.1 Baso % (Auto) 0.2 Lymph # (Auto) 1.3 [place] # (Auto) 0.7 Eos # (Auto) 0.0 Baso # (Auto) 0.0 Abs Immat Gran (auto) 0.07 H Absolute Neuts (auto) 10.6 H Absolute Nucleated RBC 0.000 Nucleated RBC % (auto) 0.0 PT INR Sodium Potassium Chloride Carbon Dioxide Anion Gap BUN Creatinine Estim Creat Clear Calc Estimated GFR Random Glucose Fasting Glucose Calcium Magnesium Total Bilirubin Direct Bilirubin AST ALT Alkaline Phosphatase Total Protein Albumin Lipase Urine Color YELLOW Urine Appearance CLEAR Urine pH 5.5 Ur Specific [place] <= 1.005 Urine Protein NEG Urine Glucose (UA) NEG Urine Ketones 15 Urine Blood NEG Urine Nitrite NEG Ur Leukocyte Esterase NEG Urine Test NEGATIVE Stool Occult Blood Chlam trachomat DNA PCR COVID-19 ([facility]) COVID-19 Clin Com N.gonorrhoeae DNA (PCR) 01/04/21 01/04/21 01/04/21 19:18 20:11 22:50 WBC RBC Hgb 10.1 L Hct 29.4 L MCV MCH MCHC RDW Plt Count MPV Immature Gran % (Auto) Neut % (Auto) Lymph % (Auto) [place] % (Auto) Eos % (Auto) Baso % (Auto) Lymph # (Auto) [place] # (Auto) Eos # (Auto) Baso # (Auto) Abs Immat Gran (auto) Absolute Neuts (auto) Absolute Nucleated RBC Nucleated RBC % (auto) PT INR Sodium Potassium Chloride Carbon Dioxide Anion Gap BUN Creatinine Estim Creat Clear Calc Estimated GFR Random Glucose Fasting Glucose Calcium Magnesium Total Bilirubin Direct Bilirubin AST ALT Alkaline Phosphatase Total Protein Albumin Lipase Urine Color Urine Appearance Urine pH Ur Specific [place] Urine Protein Urine Glucose (UA) Urine Ketones Urine Blood Urine Nitrite Ur Leukocyte Esterase Urine Test Stool Occult Blood Chlam trachomat DNA PCR NOT DETECTED COVID-19 ([facility]) Negative COVID-19 Clin Com See Note N.gonorrhoeae DNA (PCR) NOT DETECTED 01/05/21 01/05/21 01/05/21 07:03 07:04 13:51 WBC 9.3 RBC 3.27 L Hgb 10.0 L 9.7 L Hct 29.2 L 28.2 L MCV 89.3 MCH 30.6 MCHC 34.2 RDW 13.2 Plt Count 233 MPV 9.9 Immature Gran % (Auto) 0.4 Neut % (Auto) 64.0 Lymph % (Auto) 25.4 [place] % (Auto) 9.4 Eos % (Auto) 0.5 Baso % (Auto) 0.3 Lymph # (Auto) 2.4 [place] # (Auto) 0.9 Eos # (Auto) 0.1 Baso # (Auto) 0.0 Abs Immat Gran (auto) 0.04 H Absolute Neuts (auto) 5.9 Absolute Nucleated RBC 0.000 Nucleated RBC % (auto) 0.0 PT INR Sodium 139 Potassium 4.2 Chloride 111 H Carbon Dioxide 23 Anion Gap 9 L BUN 10 Creatinine 0.66 Estim Creat Clear Calc 81.5 Estimated GFR > 60 Random Glucose 94 Fasting Glucose Calcium 8.8 Magnesium Total Bilirubin Direct Bilirubin AST ALT Alkaline Phosphatase Total Protein Albumin Lipase Urine Color Urine Appearance Urine pH Ur Specific [place] Urine Protein Urine Glucose (UA) Urine Ketones Urine Blood Urine Nitrite Ur Leukocyte Esterase Urine Test Stool Occult Blood Chlam trachomat DNA PCR COVID-19 ([facility]) COVID-19 Clin Com N.gonorrhoeae DNA (PCR) 01/05/21 01/06/21 01/06/21 19:04 04:24 04:24 WBC RBC Hgb 9.3 L Hct 26.9 L MCV MCH MCHC RDW Plt Count MPV Immature Gran % (Auto) Neut % (Auto) Lymph % (Auto) [place] % (Auto) Eos % (Auto) Baso % (Auto) Lymph # (Auto) [place] # (Auto) Eos # (Auto) Baso # (Auto) Abs Immat Gran (auto) Absolute Neuts (auto) Absolute Nucleated RBC Nucleated RBC % (auto) PT 12.2 INR 1.1 Sodium 142 Potassium 4.0 Chloride 111 H Carbon Dioxide 26 Anion Gap 9 L BUN 9 Creatinine 0.66 Estim Creat Clear Calc 81.5 Estimated GFR > 60 Random Glucose Fasting Glucose 84 Calcium 9.0 Magnesium Total Bilirubin Direct Bilirubin AST ALT Alkaline Phosphatase Total Protein Albumin Lipase Urine Color Urine Appearance Urine pH Ur Specific [place] Urine Protein Urine Glucose (UA) Urine Ketones Urine Blood Urine Nitrite Ur Leukocyte Esterase Urine Test Stool Occult Blood Chlam trachomat DNA PCR COVID-19 ([facility]) COVID-19 Clin Com N.gonorrhoeae DNA (PCR) 01/06/21 04:24 WBC 7.7 RBC 3.04 L Hgb 9.6 L Hct 27.6 L MCV 90.8 MCH 31.6 MCHC 34.8 RDW 13.2 Plt Count 262 MPV 10.4 Immature Gran % (Auto) Neut % (Auto) Lymph % (Auto) [place] % (Auto) Eos % (Auto) Baso % (Auto) Lymph # (Auto) [place] # (Auto) Eos # (Auto) Baso # (Auto) Abs Immat Gran (auto) Absolute Neuts (auto) Absolute Nucleated RBC 0.000 Nucleated RBC % (auto) 0.0 PT INR Sodium Potassium Chloride Carbon Dioxide Anion Gap BUN Creatinine Estim Creat Clear Calc Estimated GFR Random Glucose Fasting Glucose Calcium Magnesium Total Bilirubin Direct Bilirubin AST ALT Alkaline Phosphatase Total Protein Albumin Lipase Urine Color Urine Appearance Urine pH Ur Specific [place] Urine Protein Urine Glucose (UA) Urine Ketones Urine Blood Urine Nitrite Ur Leukocyte Esterase Urine Test Stool Occult Blood Chlam trachomat DNA PCR COVID-19 ([facility]) COVID-19 Clin Com N.gonorrhoeae DNA (PCR) Airway Mallampati Class: II TM Dist: >3cm Neck ROM: Full Heart: rrr Lungs: cta Assessment and Plan Assessment Anesthesia Assessment: Anesthesia Plan Discussed and Chart Reviewed Final Anesthetic Review Family History of Problems with Anesthesia: No History of Problems with Anesthesia: No NPO: Yes ASA Class: II Final Preanesthetic Review: No Changes in Pt Med Stat, Meds/Allgs Chart Reviewed and Consent Obtained/Reviewed Patient Risk: Intermediate Procedure Risk: Intermediate Anesthetic Plan Anesthetic Plan: MAC: Disposition: Standard PACU
--- NOTE | 2021-01-06 12:51 | P.EN_ITS ---
Event Note Date of Service: 01/06/21 Event Note: GI-Colonoscopy to the cecum and TI with biopsies and cold snare po lypectomy-Full note dictated Findings: 1. Large broad-based polypoid mass in region of Cecum/Ascending colon-not amenable to endoscopic resection. Multiple bx taken 2. Approx 15mm polyp on a stalk just distal to above mass-not bx nor removed 3. Approx 5mm rectal polyp removed with a cold snare polypetomy and recovered 4. Multiple 5mm or less polyps in left colon and rectum-not bx nor removed 5. Int/Ext Hemorrhoids 6. No bleeding nor old blood in the colon Plan: Check path, surgery consult before discharge, advance diet, F/U Hgb in AM, avoid aspirin and NSAIDs retirement. D/W patient and family. Thanks
--- NOTE | 2021-01-06 12:57 | PM.OP ---
Brief Operative Note Date of Service: 01/06/21 Pre-op diagnosis: Lower GI bleed Post-op diagnosis: other (Colon mass, colon polyps) Procedure: Colonoscopy to the cecum and TI with biopsies and cold snare polypectomy Surgeon: Broderick Tian Anesthesia: MAC Was an Acute Care Nursing Assistant used for this Procedure?: No Estimated blood loss (mL): 5.0 Pathology: other (A. Mass near cecum and very proximal ascending colon B. Rectal polyp) Condition: stable Disposition: PACU
[2021-01-06] MEDS: ondansetron HCL 4 MG/2 ML VIAL IVPUSH (14:37)
--- NOTE | 2021-01-06 15:23 | P.CONGS_ITS ---
History of Present Illness Consult details Consult date: 01/06/21 Narrative: 50-year-old female patient who developed bloody stool on Saturday which continued over the next day. As a result she presented to the emergency department for further evaluation. She denies a previous history of rectal bleeding. She denies abdominal pain, nausea, vomiting, or other abdominal symptoms. She reports losing approximately 10 lb since the beginning of the year, which she attributes to anxiety. She subsequently underwent colonoscopy earlier today which revealed a large colonic lesion at the junction of the cecum and ascending colon suggestive of a colon neoplasm. Patient is eager to be dis charged to home today therefore surgical consultation was requested to arrange for probable right colectomy once pathology results are available. Review of Systems Review of Systems: Yes all other systems are reviewed and are negative Constitutional: Constitutional: Reports anorexia, Denies chills, Denies fever(s) and Reports weight loss Eyes: Eyes: Denies change in vision Cardiovascular: Cardiovascular: Reports no additional cardiovascular complaints Respiratory: Respiratory: Reports no additional respiratory complaints Gastrointestinal: Gastrointestinal: Denies abdominal pain, Reports hematochezia, Denies change in stool character and Reports loose stools Genitourinary: Genitourinary: Reports no additional female genitourinary complaints Musculoskeletal: Musculoskeletal: Reports no additional musculoskeletal complaints Psychiatric: Psychiatric: Reports anxiety Hematologic/Lymphatic: Hematologic/Lymphatic: Reports no additional hematologic/lymphatic complaints and Denies lymphadenopathy PMFSH Past Medical History Medical History Arthritic gait Arthritis Family History Family History Maternal Aunt Breast cancer Mother Diabetes Father Colon cancer Diabetes Hypertension Surgical History Surgical History No pertinent past surgical history Social History Social History Household Members: Family Housing: Apartment Do you presently have visiting nurse or other home services: No Alcohol intake: unknown Patient Tobacco Use Status: Current everyday Tobacco user Tobacco use type: Cigarette Second Hand Smoke Exposure: No Substance Use Type: Marijuana service: No Current occupational status: unemployed Meds Allergies Allergy/AdvReac Type Severity Reaction Status Date / Time No Known Allergies Allergy Unverified 12/03/19 17:59 Active Medications: Current Medications Acetaminophen (Acetaminophen 325 Mg Tablet) 650 mg PO Q6H PRN PRN Reason: Pain, Mild (Pain Scale 1-3) Hydroxyzine HCl (Hydroxyzine Hcl 25 Mg Tablet) 25 mg PO Q8H PRN PRN Reason: Anxiety Lactated Ringer's (Lr) 1,000 mls @ 100 mls/hr IVCONT .Q10H [facility] Last Admin: 01/06/21 09:01 Dose: 100 mls/hr Documented by: Nicotine (Nicotine 14 Mg Patch.Td24) 14 mg TRANSDERMA DAILY [facility] Last Admin: 01/06/21 09:01 Dose: 14 mg Documented by: Ondansetron HCl (Ondansetron Hcl 4 Mg/2 Ml Vial) 4 mg IVPUSH Q8H PRN PRN Reason: Nausea and Vomiting Last Admin: 01/06/21 14:37 Dose: 4 mg Documented by: Pharmacy Consult (Consult Rx Perform Med Rec) 1 each MISCELLANE ONCE PRN PRN Reason: Consult order Sodium Chloride (0.9 % Sodium Chloride Flush 3 Ml Syringe) 3 ml IVFLUSH QSHIFT [facility] Last Admin: 01/06/21 09:01 Dose: Not Given Documented by: Home Medications Medication Instructions Recorded Confirmed Last Taken Type No Known Home Meds 01/04/21 01/04/21 Unknown History Physical Exam Vital Signs: Vital Signs: Last Vital Signs Temp 97.1 F 01/06/21 13:49 Pulse 85 01/06/21 13:49 Resp 18 01/06/21 13:49 BP 104/68 01/06/21 13:49 Pulse Ox 100 01/06/21 13:49 Body Mass Index 23.8 Const: General: cooperative, no acute distress, well developed, alert and awake Nutritional Appearance: well nourished Orientation/consciousness: patient oriented x3 Limitations: no limitations HENMT: Head: Yes normocephalic and Yes atraumatic Ears: hearing grossly normal bilaterally Eyes: Sclerae: sclerae normal EOM: EOMs intact bilaterally Resp: Effort & Inspection: normal respiratory effort, no audible wheezes, no cough and no respiratory distress Auscultation: clear to auscultation bilaterally Cardio: Jugular venous distension: no JVD Rate: regular rate Rhythm: regular rhythm GI: Inspection: Yes normal to inspection Palpation (GI): Soft to palpation, not firm, nontender, no guarding and hepatosplenomegaly present Percussion: Yes normal to percussion Auscultation: normal bowel sounds Rectal Exam - Female: deferred Skin: General skin exam: no rashes or lesions noted Neuro: General: patient oriented x3 Extrem: General: Yes no clubbing, cyanosis or edema Results Labs Result diagrams: 01/06/21 04:24 01/06/21 04:24 Labs: Abnormal lab results 01/05/21 01/06/21 01/06/21 Range/Units 19:04 04:24 04:24 RBC 3.04 L (4.20-5.50) X10*6/uL Hgb 9.3 L 9.6 L (12.0-16.0) g/dl Hct 26.9 L 27.6 L (37-47) % Chloride 111 H (96-108) mmol/L Anion Gap 9 L (12-20) Short CBC 01/05/21 01/06/21 Range/Units 19:04 04:24 WBC 7.7 (4.8-10.8) X10*3/uL Hgb 9.3 L 9.6 L (12.0-16.0) g/dl Hct 26.9 L 27.6 L (37-47) % Plt Count 262 (160-400) X10*3/uL BMP 01/06/21 04:24 Sodium 142 Potassium 4.0 Chloride 111 H Carbon Dioxide 26 BUN 9 Creatinine 0.66 Calcium 9.0 Urine 01/04/21 01/04/21 Range/Units 17:37 17:37 Urine Color YELLOW Urine Appearance CLEAR Urine pH 5.5 (5.0-8.0) Ur Specific [place] <= 1.005 (1.005-1.025) Urine Protein NEG (NEG-TRACE) MG/DL Urine Glucose (UA) NEG (NEG) MG/DL Urine Test NEGATIVE (NEGATIVE) All other labs normal. Assessment and Plan (1) Lesion of colon: Status: Acute (2) Acute GI bleeding: Status: Acute 50-year-old female patient presenting with bleeding per rectum earlier in the week found to have a right colon mass by colonoscopy. Biopsies were obtained by Dr. Tian and are pending at this time. Results were discussed with the patient and the probable need for a right colectomy discussed. Patient is eager to be discharged to home today. I can see her in the office next week once the biopsies are resulted and make arrangements for surgery as a short-stay admit. The patient expressed understanding and agrees with the plan. Discussed with Dr. Coh and Alicia Vela PA-C. Procedures Date of Service Date of Service: 01/06/21
--- NOTE | 2021-01-06 15:54 | P.DS_ITS ---
DS: Providers Provider Date of Service: 01/06/21 Date of admission: 01/04/21 22:20 Date of discharge: 01/06/21 Primary care physician: Rufina Wolfe NP Consults: 01/04/21 22:29 Consult to Gastroenterology Routine Consulting Provider: Broderick Tian Reason for consultation: GI bleed Has provider been notified: Yes 01/06/21 13:48 Consult to General Surgery Routine Consulting Provider: [facility] General Surgeons Reason for consultation: Colon mass Has provider been notified: No Attending physician on discharge: Juan Cho Discharging clinician: Alicia Vela DS: Diagnosis Discharge Diagnosis (1) Lesion of colon: Status: Acute (2) Acute GI bleeding: Status: Acute DS: Summary Hospital Course Hospital Course: From 50-year-old female with no significant past medical history presents to the hospital with multiple episodes of acute GI bleed that started around 11:00 a.m..? Patient history is obtained with the help of car salesman at bedside.? Patient reports that since 11:00 a.m. she had 10 episodes of acute bright red blood per rectum.? She denies having any abdominal pain or previous similar episodes.? Denies having any chest pain palpitations, no dizziness, no headache or change in vision.? Patient denies using any NSAIDs.? She reports some diarrhea with no constipation.? Denies any urinary symptoms and no lower extremity edema.? On further questioning patient does report about 10 lb unintentional weight loss in the past 10 years. ?patient hemodynamically stable with No significant abnormal vitals Labs are significant for WBC count of 12.7, initial hemoglobin of 12 which dropped to 10.2 on repeat H&H about 2 hours later, labs otherwise unremarkable Abdominal CT shows polypoid large lesion in the proximal ascending colon, rectal region with ill definition of the area which is also region of the vaginal vault/cervical region.? Soft tissue stranding with air densities.? Infectious etiology would need to be considered. Yard Pipe Grader was consulted, patient underwent pelvic exam in the ED while I was present, no abnormality on the pelvic exam was found. Gastroenterology was also consulted, recommended admission, placing on clear liquid diet, a starting bowel regiment with plan for colonoscopy on Saturday GI bleeding. Likely related to colon mass. She was seen by GI and prepped for colonoscopy with results as below. Patient has not had any further GI bleeding and H/H has remained stable overnight. She was recommended to stay overnight to recheck CBC in am, but she wishes to return home tonight. She was seen by general surgery prior to discharge and will follow up with Dr. Alamo in the office next week. She is instructed to return to the emergency department if she has any rectal bleeding or dark stools. She should repeat CBC on Saturday. She is instructed to avoid NSAIDs or aspirin. Pathology report is pending at the time of discharge. Colonoscopy 01/06/2021 Findings: 1. Large broad-based polypoid mass in region of Cecum/Ascending colon-not amenable to endoscopic resection. Multiple bx taken 2. Approx 15mm polyp on a stalk just distal to above mass-not bx nor removed 3. Approx 5mm rectal polyp removed with a cold snare polypetomy and recovered 4. Multiple 5mm or less polyps in left colon and rectum-not bx nor removed 5. Int/Ext Hemorrhoids 6. No bleeding nor old blood in the colon Time Spent with Patient Time attestation: Total time spent providing and/or coordinating discharge services: Discharge coordination time: Greater than 30 minutes Quality: Stroke Does the patient have a stroke diagnosis?: No Physical Exam Vital Signs: Vital Signs: Last Vital Signs Temp 97.1 F 01/06/21 13:49 Pulse 85 01/06/21 13:49 Resp 18 01/06/21 13:49 BP 104/68 01/06/21 13:49 Pulse Ox 100 01/06/21 13:49 Body Mass Index 23.8 Const: Nutritional Appearance: well nourished Orientation/consciousness: patient oriented x3 HENMT: Head: Yes normocephalic and Yes atraumatic Eyes: Sclerae: sclerae normal Pupils: Equal, round and reactive pupils present Chest: Chest palpation & inspection: normal inspection of the chest Resp: Effort & Inspection: normal respiratory effort and no respiratory distress Cardio: Rate: regular rate Rhythm: regular rhythm GI: Palpation (GI): Soft to palpation and nontender Neuro: General: patient oriented x3 Cranial nerves: Yes CN's II-XII intact bilaterally, Yes Equal, round and reactive pupils present and Yes Bilaterally intact EOM present Extrem: Other: no leg edema DS: Data Data Completed and Pending Pending studies at discharge: Pending at discharge 01/06/21 12:19 Surgical [PTH] Routine Labs on day of discharge: Laboratory Results - last 24 hr 01/05/21 01/06/21 01/06/21 19:04 04:24 04:24 WBC RBC Hgb 9.3 L Hct 26.9 L MCV MCH MCHC RDW Plt Count MPV Absolute Nucleated RBC Nucleated RBC % (auto) PT 12.2 INR 1.1 Sodium 142 Potassium 4.0 Chloride 111 H Carbon Dioxide 26 Anion Gap 9 L BUN 9 Creatinine 0.66 Estim Creat Clear Calc 81.5 Estimated GFR > 60 Fasting Glucose 84 Calcium 9.0 01/06/21 04:24 WBC 7.7 RBC 3.04 L Hgb 9.6 L Hct 27.6 L MCV 90.8 MCH 31.6 MCHC 34.8 RDW 13.2 Plt Count 262 MPV 10.4 Absolute Nucleated RBC 0.000 Nucleated RBC % (auto) 0.0 PT INR Sodium Potassium Chloride Carbon Dioxide Anion Gap BUN Creatinine Estim Creat Clear Calc Estimated GFR Fasting Glucose Calcium Discharge Plan Discharge Patient Disposition: Home, Self-Care Discharge Diagnosis: GI bleeding Colon mass Referrals: Rufina Wolfe NP [Primary Care Provider] - 1 Week Brad Plascencia MD [Physician] - 1 Week Discharge Orders: Discharge Order (Routine); Ordered 01/06/21 Ordered By: Alicia Vela Activity on Discharge: As tolerated Stand Alone Forms: Patient Portal Discharge page Other Ambulatory Orders: Complete Blood Count no Diff (Routine) Timeframe: 20210109 Facility: [facility] - Location: Laboratory Ordered By: Alicia Vela Care Plan Goals: see below Health Concerns: GI bleeding colon mass Plan of Treatment: call to schedule follow up appointment with Dr. Alamo next week repeat labs on Saturday Do not take aspirin or NSAIDs (motrin, ibuprofen or similar medications) If you have any rectal bleeding return to the ED for evaluation Assessment: admitted for GI bleeding found to have colon mass
--- NOTE | 2021-01-06 16:25 | HE.CMURR ---
Days since last inpatient discharge: Discharge Diagnosis: [] Discharge Disposition: [] During last visit did patient: Receive services as ordered upon discharge? [] Comment: [] Receive all needed supplies? [] Comment: [] Take all medications as prescribed? [] Comment: [] Patient compliance with treatment noted? [] Comment: [] Current Visit Admission Date: Jan 04, 2021 Visit Reason: Acute GI bleed, Colon mass Secondary Reason: [] Planned re-admission? [] Comment: [] Primary or Secondary Diagnosis of: []CHF []COPD []UTI []Pneumonia []Diabetes []AMI []Substance Use Disorder []Behavioral Health Lack of support noted: [] Comment: [] Additional Comments: [] Attestation: Information provided in this clinical review has been obtained from the patient's record and may include, but may not be limited to provider notes, test results and orders.
--- NOTE | 2021-01-06 16:25 | MHC.CM.PN ---
PT TO DC HOME TODAY WITH NO SERVICES FAMILY TO TRANSPORT
--- NOTE | 2021-01-08 01:24 | OP_ITS ---
SURGEON: Broderick Tian MD INDICATIONS: The patient presents for evaluation of lower GI bleeding and abnormal CT scan of colon. Full consent has been obtained from her for this, including risks of bleeding and perforation. PREOPERATIVE DIAGNOSIS: POSTOPERATIVE DIAGNOSIS: PROCEDURE PERFORMED: Colonoscopy to the cecum and terminal ileum with biopsies and cold snare polypectomy. ESTIMATED BLOOD LOSS: COMPLICATIONS: ANESTHESIA: Monitored anesthesia care. ASSISTANTS: SPECIMENS: PREOPERATIVE DIAGNOSES: Lower GI bleeding and abnormal CT scan of colon. POSTOPERATIVE DIAGNOSES: Lower GI bleeding, abnormal CT scan of colon, large polypoid colon mass at junction of cecum and ascending colon, colon polyp, and internal hemorrhoids. DESCRIPTION OF PROCEDURE: The patient was placed in the left lateral decubitus position. The digital rectal exam revealed no abnormalities. The Olympus video pediatric colonoscope was entered into the rectum and advanced easily to the cecum. Once in the cecum, I did identify cecal pouch with appendiceal orifice and a normal-appearing ileocecal valve. The terminal ileum was cannulated and appeared normal. The scope was withdrawn back in the colon. The majority of the cecum appeared normal. The scope was slowly withdrawn assessing all mucosal surfaces carefully. Preparation was excellent. At the junction of the proximal ascending colon and just entering the cecum was a large polypoid broad-based lesion that would at times fill the lumen of the colon, although the point of attachment of the lesion was not circumferential. The lesion itself was somewhat friable with areas of some ulceration. It was obviously too large to be removed by endoscopic means. Multiple biopsies were obtained from it. Just distal to this was a separate polyp approximately 15 mm in diameter on a stalk, but this was not biopsied nor removed, given the finding of the large lesion just near it. The scope was then slowly withdrawn assessing all mucosal surfaces carefully. Preparation was excellent. There was no sign of any active bleeding or old blood in the colon. In the rectum, was an approximately 5 or 6 mm polyp thay was removed with a cold snare polypectomy and recovered by suction. There was no sign of any residual polyp nor any significant bleeding. Throughout the colon were some small approximately 3 to 5 mm polyps, which appeared all hyperplastic, but were not biopsied nor removed at this time. There was no sign of any colitis nor angiodysplasia. In the rectum, scope was retroflexed visualizing some small internal hemorrhoids, but no other pathology. The rectal mucosa appeared normal otherwise. The scope was straightened out and withdrawn from the patient. She tolerated the procedure well and was returned to the recovery area in stable condition. IMPRESSION: 1. Large lesion noted at the region of the cecum and proximal ascending colon, status post biopsy. 2. Colon polyps. 3. Internal and external hemorrhoids. PLAN: The results of the biopsies will be checked. She will have surgical consultation prior to discharge as she wants to go home as soon as possible and then surgery could be arranged in the near future as an outpatient. Her diet will be advanced. She should stay off all aspirin and NSAIDs long-term in the meantime. She should undergo repeat colonoscopy in about 1 year. This has been discussed with the patient and her family with a medical coder. MD DEAN Miner/JAVIER / [id number] MTDD
== END 2021-01-06 17:01 | disposition home or self-care (01) | DRG 254 ==
LOC: HO.ED 18:47 → HO.EDOVER 22:28 → HO.S3 01-05 07:54
PROVIDERS: Internal Medicine; Obstetrics & Gynecology; Physician Assistant; Admitting Provider Internal Medicine; Emergency Provider Emergency Medicine Emergency Medical Services; PCP Registered Nurse Community Health; Visit Provider Physician Assistant Medical
PROC: 0DJD8ZZ Inspection of Lower Intestinal Tract, Via Natural or Artificial Opening Endoscopic (ICD-10-PCS; CPT 45378; principal; 2021-01-06 11:30)
DX: K63.9 Disease of intestine, unspecified (principal); F17.210 Nicotine dependence, cigarettes, uncomplicated; K62.1 Rectal polyp; K62.5 Hemorrhage of anus and rectum; K63.5 Polyp of colon; F41.9 Anxiety disorder, unspecified; K64.8 Other hemorrhoids; K64.4 Residual hemorrhoidal skin tags; Z20.822 Contact with and (suspected) exposure to COVID-19; Z71.6 Tobacco abuse counseling; Z79.899 Other long term (current) drug therapy
CPT/HCPCS: 45380; 45385; 36415; 74177; 80048; 80076; 81003; 81025; 82272; 83690; 83735; 85014; 85018; 85025; 85027; 85610; 87491; 87591; 87635; 88305; 96361; 96374; 99218; 99285; J2060; J2405; Q9967

== ENCOUNTER 2021-01-09 09:46 | Outpatient (REF) | payer MEDICAID, SELFPAY ==
[2021-01-09 10:33] LABS: Hematocrit 26.5 % (37-47); Hemoglobin 8.8 g/dl (12.0-16.0); Mean Corpuscular HGB Conc 33.2 g/dl (31.0-35.0); Mean Corpuscular Hemoglobin 30.4 pg (27.0-33.0); Mean Corpuscular Volume 91.7 fL (80-98); Mean Platelet Volume 10.2 fL (9.4-12.3); Platelet Count 344 X10*3/uL (160-400); Red Blood Count 2.89 X10*6/uL (4.20-5.50); Red Cell Distribution Width 13.1 % (11.0-16.0)
== END 2021-01-09 09:47 | disposition home or self-care (01) ==
LOC: HO.LAB 09:46
PROVIDERS: Visit Provider Physician Assistant Medical
DX: K92.2 Gastrointestinal hemorrhage, unspecified (principal)
CPT/HCPCS: 36415; 85027

== ENCOUNTER → 2021-01-13 08:28 | Outpatient (BNVA) | payer MEDICAID, SELFPAY | PROVIDERS: PCP Registered Nurse Community Health; Visit Provider Surgery | DX: K63.9 Disease of intestine, unspecified (principal); F41.9 Anxiety disorder, unspecified; D64.9 Anemia, unspecified | CPT/HCPCS: 99212 ==

== ENCOUNTER 2021-02-01 09:32 | Inpatient (IN) | payer MEDICAID, SELFPAY ==
--- NOTE | 2021-01-24 | ECG_ITS ---
Test Reason : preop Blood Pressure : / mmHG Vent. Rate : 068 BPM Atrial Rate : 068 BPM P-R Int : 158 ms QRS Dur : 076 ms QT Int : 354 ms P-R-T Axes : 062 026 027 degrees QTc Int : 376 ms Normal sinus rhythm RSR' or QR pattern in V1 suggests right ventricular conduction delay Otherwise normal ECG When compared with ECG of 28-FEB-2016 20:37, No significant change was found Referred By: Rox Solo Electronically Signed By:MARE DUNNE MD
[2021-01-24 12:15] VITALS: BP 103/63; RESP 20; O2SAT 99; BMI 22.6
--- NOTE | 2021-01-24 12:34 | P.CONAN_ITS ---
Documented by User: Rox Solo NP 01/24/21 12:55 HPI - Anesthesia Eval Consult details Narrative: 50yo F for Hand Assisted Laparoscopic Right Partial Colectomy s/p colonoscopy with TIVA 12/2020 [facility] Active Problems Active Problems: All Active Problems (Updated 01/24/21 @ 12:12 by Joceline Gaming RN) Acute GI bleeding (Acute) Lesion of colon (Acute) Abnormal CT scan (Acute) Anemia (Acute) Anxiety (Acute) Past Medical History Medical History Anemia Anxiety Arthritis COVID-19 vaccine series completed Family history of anesthesia complication Family History Family History Mother Diabetes Father Colon cancer Diabetes Hypertension Paternal Aunt Breast cancer Family history of problems with anesthesia: No (Mother long to wake) Surgical History Surgical History H/O colonoscopy History of Hx of appendectomy History of Problems with Anesthesia: No Social History Social History (Updated 02/01/21 @ 08:08 by Celia Miller MD) Household Members: Family Housing: Apartment Are you a primary critical care physician assistant to a significant other at home: No Do you presently have visiting nurse or other home services: No Alcohol intake: unknown Patient Tobacco Use Status: Current everyday Tobacco user Tobacco use type: Cigarette Cigarette Packs Per Day: 1 Cigarettes Per Day: 20.0 Years Smoked: 33 Smoked in Last 30 Days: Yes Patient Interested in Nicotine Replacement: Yes Second Hand Smoke Exposure: No Use of substances other than those prescribed or required for medical reasons: Yes Substance Use Type: Marijuana Substance Use Frequency: Daily Last Used Substance: Hours (ago) Have you been hit, kicked, punched, or otherwise hurt by someone within the past year? If so, by whom?: No Are you DNR?: No Advance Directives: No Advance Directives Information Provided: Yes (informational brochure & HCP forms given) Advance Directives on File: No Recently lost weight without trying: No Eating poorly because of decreased appetite: No Nutrition Risks: No Nutritional Risk Patient : No FDLMP: 01/06/21 Poor oral hygiene: No (1 broken tooth -upper , 2 broken teeth-lower) service: No Current occupational status: unemployed Narrative Narrative: No recent illness No CP/SOB with stairs/walking Meds Allergies Allergy/AdvReac Type Severity Reaction Status Date / Time No Known Allergies Allergy Verified 02/01/21 06:09 Exam Exam Date and Time: January 24, 2021 1234 Height,Weight and Vital Signs: Height 5 ft 4 in Weight 59.874 kg Last Vital Signs Resp 20 01/24/21 12:15 BP 103/63 01/24/21 12:15 Pulse Ox 99 01/24/21 12:15 Airway Mallampati Class: I TM Dist: >3cm Neck ROM: Full Loose/Missing/Broken Teeth: Yes (Broken molars) Heart: RRR Lungs: CTAB Assessment and Plan Assessment Anesthesia Assessment: Anesthesia Plan Discussed (GA), Smoking Cess. Discussed (Also discussed holding THC preop) and PAT Visit Final Anesthetic Review Family History of Problems with Anesthesia: No (Mother long to wake) History of Problems with Anesthesia: No Documented by User: Celia Miller MD 02/01/21 08:18 [facility] Active Problems Active Problems: All Active Problems (Updated 01/24/21 @ 12:12 by Joceline Gaming RN) Acute GI bleeding (Acute) Lesion of colon (Acute) Abnormal CT scan (Acute) Anemia (Acute) Anxiety (Acute) Large mass found at junction of caecum and ascending colon at colonoscopy Past Medical History Medical History Anemia Anxiety Arthritis COVID-19 vaccine series completed Family history of anesthesia complication Family History Family History Mother Diabetes Father Colon cancer Diabetes Hypertension Paternal Aunt Breast cancer Surgical History Surgical History H/O colonoscopy History of Hx of appendectomy Social History Social History (Updated 02/01/21 @ 08:08 by Celia Miller MD) Household Members: Family Housing: Apartment Are you a primary critical care physician assistant to a significant other at home: No Do you presently have visiting nurse or other home services: No Alcohol intake: unknown Patient Tobacco Use Status: Current everyday Tobacco user Tobacco use type: Cigarette Cigarette Packs Per Day: 1 Cigarettes Per Day: 20.0 Years Smoked: 33 Smoked in Last 30 Days: Yes Patient Interested in Nicotine Replacement: Yes Second Hand Smoke Exposure: No Use of substances other than those prescribed or required for medical reasons: Yes Substance Use Type: Marijuana Substance Use Frequency: Daily Last Used Substance: Hours (ago) Have you been hit, kicked, punched, or otherwise hurt by someone within the past year? If so, by whom?: No Are you DNR?: No Advance Directives: No Advance Directives Information Provided: Yes (informational brochure & HCP forms given) Advance Directives on File: No Recently lost weight without trying: No Eating poorly because of decreased appetite: No Nutrition Risks: No Nutritional Risk Patient : No FDLMP: 01/06/21 Poor oral hygiene: No (1 broken tooth -upper , 2 broken teeth-lower) service: No Current occupational status: unemployed Meds Allergies Allergy/AdvReac Type Severity Reaction Status Date / Time No Known Allergies Allergy Verified 02/01/21 06:09 Exam Height,Weight and Vital Signs: Height 5 ft 4 in Weight 59.874 kg Last Vital Signs Resp 20 01/24/21 12:15 BP 103/63 01/24/21 12:15 Pulse Ox 99 01/24/21 12:15 Vital Signs Temp Pulse Resp BP Pulse Ox 02/01/21 06:41 98.1 F 74 16 117/80 98 Pertinent Lab Results Pertinent Lab Results: Lab Results 01/24/21 01/24/21 02/01/21 Range/Units 13:20 13:28 06:10 WBC 8.5 (4.8-10.8) X10*3/uL RBC 3.60 L (4.20-5.50) X10*6/uL Hgb 10.6 L (12.0-16.0) g/dl Hct 32.3 L (37.0-47.0) % MCV 89.7 (80.0-98.0) fL MCH 29.4 (27.0-33.0) pg MCHC 32.8 (31.0-35.0) g/dl RDW 15.0 (11.0-16.0) % Plt Count 372 (160-400) X10*3/uL MPV 9.9 (9.4-12.3) fL Absolute Nucleated RBC 0.000 (0.0-0.012) X10*3/uL Nucleated RBC % (auto) 0.0 (0.0-0.2) /100WBC Urine Test (NEGATIVE) COVID-19 (MANDEEP) Negative (Negative) COVID-19 Socialize Com See Note Blood Type O Negative Antibody Screen NEGATIVE 02/01/21 Range/Units 06:15 WBC (4.8-10.8) X10*3/uL RBC (4.20-5.50) X10*6/uL Hgb (12.0-16.0) g/dl Hct (37.0-47.0) % MCV (80.0-98.0) fL MCH (27.0-33.0) pg MCHC (31.0-35.0) g/dl RDW (11.0-16.0) % Plt Count (160-400) X10*3/uL MPV (9.4-12.3) fL Absolute Nucleated RBC (0.0-0.012) X10*3/uL Nucleated RBC % (auto) (0.0-0.2) /100WBC Urine Test NEGATIVE (NEGATIVE) COVID-19 (MANDEEP) (Negative) COVID-19 Socialize Com Blood Type Antibody Screen Laboratory Tests 01/06/21 01/06/21 04:24 04:24 PT 12.2 INR 1.1 Sodium 142 Potassium 4.0 Chloride 111 H Carbon Dioxide 26 Anion Gap 9 L BUN 9 Creatinine 0.66 Estim Creat Clear Calc 81.5 Estimated GFR > 60 Fasting Glucose 84 Calcium 9.0 Date of Service: 01/24/21 Procedure(s): ECG 12 lead EKG Vent. Rate : 068 BPM ? ? Atrial Rate : 068 BPM ?? P-R Int : 158 ms? QRS Dur : 076 ms ? ? QT Int : 354 ms ? ? ? P-R-T Axes : 062 026 027 degrees ?? QTc Int : 376 ms ? Normal sinus rhythm RSR' or QR pattern in V1 suggests right ventricular conduction delay Otherwise normal ECG When compared with ECG of 28-FEB-2016 20:37, No significant change was found Narrative Narrative: Very sleepy, hardly able to answer questions. Took ativan Airway Loose/Missing/Broken Teeth: Yes (Broken teeth all over. Poor dentition) Assessment and Plan Assessment Anesthesia Assessment: Chart Reviewed Final Anesthetic Review NPO: Yes ASA Class: II Final Preanesthetic Review: No Changes in Pt Med Stat, Meds/Allgs Chart Reviewed, Consent Obtained/Reviewed and Anes Risks/Benef Reviewed Patient Risk: Intermediate Procedure Risk: Intermediate Assessment/Block/Sedation in SS: Assess/Block/Sedation-SS Anesthetic Plan Anesthetic Plan: GA Disposition: Standard PACU and Inp. Admit - Standard Bed
[2021-01-24 14:31] LABS: Hematocrit 32.3 % (37.0-47.0); Hemoglobin 10.6 g/dl (12.0-16.0); Mean Corpuscular HGB Conc 32.8 g/dl (31.0-35.0); Mean Corpuscular Hemoglobin 29.4 pg (27.0-33.0); Mean Corpuscular Volume 89.7 fL (80.0-98.0); Mean Platelet Volume 9.9 fL (9.4-12.3); Platelet Count 372 X10*3/uL (160-400); White Blood Count 8.5 X10*3/uL (4.8-10.8)
[2021-02-01] VITALS (19 sets, daily range): BP systolic 117–157; BP diastolic 68–94; PULSE 59–87; RESP 16–20; TEMP 36.1–37.3; O2SAT 98–100
[2021-02-01 06:35] LABS: UPreg QC Valid YES; Urine Pregnancy NEGATIVE (NEGATIVE)
[2021-02-01] MEDS: Lactated Ringers 1,000 ML 100 ML IVCONT (06:47)
[2021-02-01 06:58] LABS: COVID-19 Test Negative (Negative)
--- NOTE | 2021-02-01 09:40 | P.OP_ITS ---
Operative Note Operative Note Date of Service: 02/01/21 Narrative: Preoperative diagnosis: Right colonic neoplasm Postoperative diagnosis: Same Procedure: Hand assisted laparoscopic right colectomy Surgeon: Brad Plascencia MD Runstitching Machine Operator: Tania Hayden PA-C Anesthesia: General endotracheal Indications for procedure: 50-year-old female presenting with lower GI bleed found on colonoscopy to have a mass in the right colon. 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 Patient presents now for right hemicolectomy. Operative findings: Palpable mass noted in the right colon with no evidence of invasion to the surrounding organs. Specimen: Right colon Estimated blood loss: 10 mL Complications: None Procedure details: Patient was brought to the OR placed in a supine position. After administering general anesthesia the patient's abdomen was prepped with ChloraPrep and draped in a sterile fashion. A surgical time-out was called the consent confirmed. Patient received preoperative antibiotics and Venodyne boots were in place. Local anesthesia consisting of 0.5% Sensorcaine with epinephrine was infiltrated in the midline. A 7.5 cm incision was then made in the midline at the level of the umbilicus. This carried out through subcutaneous tissue and through linea alba. Peritoneum was then entered. A hand port was then placed and the abdomen insufflated to pressure of 15 mm of mercury with CO2. A 12 mm trocar was placed in the lower midline and a 2nd trocar placed in the right lower quadrant. Patient was placed in a Trendelenburg position rotated to the left. The abdomen was explored and the right colon mass identified. Using the LigaSure and the hand port the right colon was mobilized along the white line of Toldt terminal ileum was also mobilized off the abdominal sidewall. This was continued up towards the hepatic flexure. Transverse colon was then mobilized by raising the omentum above the colon. The lesser sac was then entered and the colon mobilized distal proximal. The remaining attachments to the hepatic flexure were then released using the LigaSure. With the colon was completely mobilized attention was then directed to the terminal ileum. A window was made in the mesentery using electrocautery and a Endo-NITZA stapler used to divide the terminal ileum. The LigaSure was then used to divide the mesentery of the terminal ileum towards the cecum. The right colic artery was then identified. High ligation was performed just below the duodenum. The vessel was divided between right angle clamps and ligated with 2-0 silk ties. A similar fashion the right branch of the middle colic artery was also divided and ligated with 2-0 silk ties. The mesentery between these were divided using LigaSure. An Endo-NITZA was then used to divide the transverse colon at the level of the right branch of the middle colic artery. The specimen was then removed and sent to pathology for further examination. The distal transverse colon and ileum were then approximated using interrupted 3-0 Surgilon sutures. An enterotomy was made in the ileum and colon a functional end-to-end anastomosis performed using the Endo-NITZA stapler through the colotomy. A TA 60 stapler was then used to close the colotomy. This staple line was then reinforced using interrupted 3-0 Surgilon sutures. The mesenteric defect was then closed using interrupted 3-0 Surgilon sutures. The anastomosis was returned to abdominal cavity. Abdominal cavity was then irrigated and suctioned dry. No bleeding be identified. CO2 was then evacuated and all trocars removed. Fascia was closed in the midline incision using a running 1 Maxon suture. Skin was closed using skin cole. Fascia in the trocar incisions was closed using a 0 Polysorb suture. Skin was closed using skin cole. Sterile dressings were then applied. The patient tolerated the procedure well. Sponge, instrument, needle counts reported as correct. The patient was transferred to PACU in stable condition.
--- NOTE | 2021-02-01 09:51 | MHC.SHP ---
Pre-Procedural Eval Section A Date of Service: 02/01/21 The patient is an INPATIENT: No Changes since office visit: Yes Patient answered all questions; No Cold of Flu in the past 2 weeks, No New Medical Problems and No Changes in Medication The History & Physical has been completed within 30 days and I have reviewed it.: Yes Section B Chief Complaint: RIGHT COLONIC NEOPLASM Allergies: Allergies Allergy/AdvReac Type Severity Reaction Status Date / Time No Known Allergies Allergy Verified 02/01/21 06:09 Plan Diagnosis/Plan: Unchanged I have reviewed the history and physical and performed a pertinent physical examination on my patient. No changes have occurred unless specified.
[2021-02-01] MEDS: ondansetron HCL 4 MG/2 ML VIAL IVPUSH ×2 (10:33→19:57)
[2021-02-01] MEDS: HYDROmorphone HCl 0.5 MG/0.5 ML SYRINGE 0.25 MG IVPUSH ×4 (10:34→11:00)
[2021-02-01] MEDS: 0.9 % Sodium Chloride Flush 3 ML SYRINGE IVFLUSH ×2 (13:02→22:48)
[2021-02-01] MEDS: LORazepam 0.5 MG TABLET PO (14:15)
[2021-02-01] MEDS: oxyCODONE HCl Immed Release 5 MG TABLET PO ×2 (14:15→19:48)
--- NOTE | 2021-02-01 14:40 | PHA.MEDREC ---
Pharmacy Consult ? Medication Reconciliation Pharmacy has completed the medication reconciliation. Patient is not taking ferrous sulfate anymore. Thanks Jagdish Farr Pharm D
[2021-02-01] MEDS: Morphine Sulfate 2 MG/ML CARTRIDGE 4 MG IVPUSH ×2 (15:34→22:47)
[2021-02-02] MEDS: Morphine Sulfate 2 MG/ML CARTRIDGE 4 MG IVPUSH (03:59)
[2021-02-02] MEDS: LORazepam 0.5 MG TABLET PO (03:59)
[2021-02-02 04:00] VITALS: BP 122/70; PULSE 60; RESP 16; TEMP 36.5; O2SAT 98
[2021-02-02 05:36] LABS: Basophils Percent Auto 0.2 % (0-2); Hematocrit 32.2 % (37.0-47.0); Hemoglobin 10.4 g/dl (12.0-16.0); Imm Gran Abs Auto 0.07 X10*3/uL (0.00-0.03); Imm Gran Pct Auto 0.4 % (0.0-0.4); Lymphocytes Absolute Auto 1.7 X10*3/uL (1.2-4.9); Lymphocytes Percent Auto 10.4 % (20-40); MANUAL DIFF FLAG SCAN; Mean Corpuscular HGB Conc 32.3 g/dl (31.0-35.0); Mean Corpuscular Hemoglobin 28.6 pg (27.0-33.0); Mean Corpuscular Volume 88.5 fL (80.0-98.0); Mean Platelet Volume 10.3 fL (9.4-12.3); Monocytes Absolute Auto 1.6 X10*3/uL (0.1-1.2); Monocytes Percent Auto 9.7 % (2-11); Neutrophils Percent Auto 79.3 % (45-73); Platelet Count 363 X10*3/uL (160-400); Red Blood Count 3.64 X10*6/uL (4.20-5.50); Red Cell Distribution Width 14.8 % (11.0-16.0); SCAN SMEAR FLAG 1; White Blood Count 16.4 X10*3/uL (4.8-10.8)
[2021-02-02 05:53] LABS: Anion Gap 11 (12-20); Blood Urea Nitrogen 8 mg/dL (9-16); Carbon Dioxide 22 mmol/L (22-29); Chloride 106 mmol/L (96-108); Creatinine Clr Calc Pharmacy 90.4; Estimated Glomerular Filt Rate > 60; Glucose Random 112 mg/dL (60-115); Potassium 4.1 mmol/L (3.3-5.1); Sodium 135 mmol/L (135-145)
[2021-02-02 05:56] LABS: SLIDE REVIEW VERIFIED
--- NOTE | 2021-02-02 06:28 | PC.NURSE ---
stone catheter removed at 0625.
[2021-02-02 08:00] VITALS: BP 130/79; PULSE 63; RESP 18; TEMP 36.6; O2SAT 100
--- NOTE | 2021-02-02 08:34 | P.PNGS_ITS ---
Subjective Subjective Date of Service: 02/02/21 <Tania Hayden PA-C - Last Filed: 02/02/21 08:39> 02/02/21 <Brad Plascencia MD - Last Filed: 02/02/21 17:06> Interval history: Has a lot of pain this morning. Morphine helping but does not last long enough. Tolerating liquids. Denies nausea. Denies flatus but endorses belching. Was OOB to bathroom but reports this is very painful and difficult to get OOB. <Tania Hayden PA-C - Last Filed: 02/02/21 08:39> Physical Exam Vital Signs: Vital Signs: Last Vital Signs Temp 97.9 F 02/02/21 08:00 Pulse 63 02/02/21 08:00 Resp 18 02/02/21 08:00 BP 130/79 02/02/21 08:00 Pulse Ox 100 02/02/21 08:00 Body Mass Index 22.6 <Tania Hayden PA-C - Last Filed: 02/02/21 08:39> Const: General: no acute distress, alert and other (in pain) <Tania Hayden PA-C - Last Filed: 02/02/21 08:39> Orientation/consciousness: patient oriented x3 <Tania Hayden PA-C - Last Filed: 02/02/21 08:39> Eyes: Sclerae: sclerae normal <Tania Hayden PA-C - Last Filed: 02/02/21 08:39> Resp: Effort & Inspection: normal respiratory effort <Tania Hayden PA-C - Last Filed: 02/02/21 08:39> Cardio: Rate: regular rate <KEYLA Lema Last Filed: 02/02/21 08:39> GI: Inspection: No distended and Yes incision (dressings c/d/i) <KEYLA Lema Last Filed: 02/02/21 08:39> Palpation (GI): Soft to palpation, Tenderness to palpation present (GI) (moderate, incisional), no guarding and not rigid <KEYLA Lema Last Filed: 02/02/21 08:39> Percussion: Yes normal to percussion <Tania Hayden PA-C - Last Filed: 02/02/21 08:39> Skin: General skin exam: no rashes or lesions noted <Tania Hayden PA-C - Last Filed: 02/02/21 08:39> Neuro: General: patient oriented x3 <Tania Hayden PA-C - Last Filed: 02/02/21 08:39> Extrem: General: Yes no clubbing, cyanosis or edema <Tania Hayden PA-C - Last Filed: 02/02/21 08:39> Objective Data Active Medications Hydromorphone HCl (Hydromorphone Hcl 0.5 Mg/0.5 Ml Syringe) 0.5 mg IVPUSH Q3H PRN; Protocol PRN Reason: Pain, Severe (Pain Scale 7-10) Acetaminophen (Ofirmev) 1,000 mg in 100 mls @ 400 mls/hr IV Q6H JESSE Last Infusion: 02/02/21 07:09 Dose: 0 mls/hr Documented by: LORENA Lorazepam (Lorazepam 0.5 Mg Tablet) 0.5 mg PO BID PRN PRN Reason: anxiety Last Admin: 02/02/21 03:59 Dose: 0.5 mg Documented by: ALISA Ondansetron HCl (Ondansetron Hcl 4 Mg/2 Ml Vial) 4 mg IVPUSH Q8H PRN PRN Reason: Nausea and Vomiting Last Admin: 02/01/21 19:57 Dose: 4 mg Documented by: ALISA Oxycodone HCl (Oxycodone Hcl Immed Release 5 Mg Tablet) 5 mg PO Q4H PRN PRN Reason: Pain, Moderate (Pain Scale 4-6 Last Admin: 02/01/21 19:48 Dose: 5 mg Documented by: ALISA Oxycodone HCl (Oxycodone Hcl Immed Release 5 Mg Tablet) 10 mg PO Q4H PRN PRN Reason: Pain, Severe (Pain Scale 7-10) Pharmacy Consult (Consult Rx Perform Med Rec) 1 each MISCELLANE ONCE PRN PRN Reason: Consult order Sodium Chloride (0.9 % Sodium Chloride Flush 3 Ml Syringe) 3 ml IVFLUSH QSHIFT ON LICENSE OF [facility] Last Admin: 02/01/21 22:48 Dose: 3 ml Documented by: TAMARAQC Zolpidem Tartrate (Zolpidem Tartrate 5 Mg Tablet) 5 mg PO BEDTIME PRN PRN Reason: Insomnia <KEYLA Lema Last Filed: 02/02/21 08:39> Labs CBC & Chem 7: : 02/02/21 05:11 02/02/21 05:11 <KEYLA Lema Last Filed: 02/02/21 08:39> Labs: Laboratory Results - last 24 hr 02/02/21 02/02/21 05:11 05:11 MCV 88.5 MCH 28.6 MCHC 32.3 RDW 14.8 Plt Count 363 MPV 10.3 Immature Gran % (Auto) 0.4 Neut % (Auto) 79.3 H Lymph % (Auto) 10.4 L Collin % (Auto) 9.7 Eos % (Auto) 0.0 Baso % (Auto) 0.2 Lymph # (Auto) 1.7 Collin # (Auto) 1.6 H Eos # (Auto) 0.0 Baso # (Auto) 0.0 Abs Immat Gran (auto) 0.07 H Absolute Neuts (auto) 13.0 H Absolute Nucleated RBC 0.000 Nucleated RBC % (auto) 0.0 Smear Tech's Comments VERIFIED Anion Gap 11 L Estim Creat Clear Calc 90.4 Estimated GFR > 60 Random Glucose 112 Calcium 9.0 <KEYLA Lema Last Filed: 02/02/21 08:39> Procedures Date of Service Date of Service: 02/02/21 <KEYLA Lema Last Filed: 02/02/21 08:39> Progress Note: A&P Assessment and plan (1) Lesion of colon: Status: Acute <KEYLA Lema Last Filed: 02/02/21 08:39> (2) S/P right colectomy: Status: Acute <KEYLA Lema Last Filed: 02/02/21 08:39> Assessment and Plan: 50-year-old female presenting with lower GI bleed found to have a mass in the right colon on colonoscopy.? 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 She is now POD #1 s/p KADE right colectomy. She is doing fairly well post op but having difficulty with pain. VSS. Abd exam- soft, nondistended, appropriate post op tenderness, dressing c/d/i. Marques removed this am and now voiding on own. Will change morphine to dilaudid and add oxycodone 10mg PO PRN in hopes this lasts longer for her. She is on ofirmev. Encouraged OOB/ambulation and IS use today. Continue clear liquids until begins to pass flatus. AM labs reviewed. <Tania Hayden PA-C - Last Filed: 02/02/21 08:39> 50-year-old female presenting with lower GI bleed found to have a mass in the right colon on colonoscopy.? 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 She is now POD #1 s/p KADE right colectomy. She is doing fairly well post op but having difficulty with pain. VSS. Abd exam- soft, nondistended, appropriate post op tenderness, dressing c/d/i. Marques removed this am and now voiding on own. Will change morphine to dilaudid and add oxycodone 10mg PO PRN in hopes this lasts longer for her. She is on ofirmev. Encouraged OOB/ambulation and IS use today. Continue clear liquids until begins to pass flatus. AM labs reviewed. Patient independently evaluated and examined. She complains mainly of incisional pain this morning but does report improvement with the pain medication. Agree with the above change in medications. Incisions are clean, dry, and intact. Agree with the above assessment and plan. <Brad Plascencia MD - Last Filed: 02/02/21 17:06> Fall Risk Details Current Medications: Current Medications Hydromorphone HCl (Hydromorphone Hcl 0.5 Mg/0.5 Ml Syringe) 0.5 mg IVPUSH Q3H PRN; Protocol PRN Reason: Pain, Severe (Pain Scale 7-10) Acetaminophen (Ofirmev) 1,000 mg in 100 mls @ 400 mls/hr IV Q6H JESSE Last Infusion: 02/02/21 07:09 Dose: Infused Documented by: Lorazepam (Lorazepam 0.5 Mg Tablet) 0.5 mg PO BID PRN PRN Reason: anxiety Last Admin: 02/02/21 03:59 Dose: 0.5 mg Documented by: Ondansetron HCl (Ondansetron Hcl 4 Mg/2 Ml Vial) 4 mg IVPUSH Q8H PRN PRN Reason: Nausea and Vomiting Last Admin: 02/01/21 19:57 Dose: 4 mg Documented by: Oxycodone HCl (Oxycodone Hcl Immed Release 5 Mg Tablet) 5 mg PO Q4H PRN PRN Reason: Pain, Moderate (Pain Scale 4-6 Last Admin: 02/01/21 19:48 Dose: 5 mg Documented by: Oxycodone HCl (Oxycodone Hcl Immed Release 5 Mg Tablet) 10 mg PO Q4H PRN PRN Reason: Pain, Severe (Pain Scale 7-10) Pharmacy Consult (Consult Rx Perform Med Rec) 1 each MISCELLANE ONCE PRN PRN Reason: Consult order Sodium Chloride (0.9 % Sodium Chloride Flush 3 Ml Syringe) 3 ml IVFLUSH [facility] Last Admin: 02/01/21 22:48 Dose: 3 ml Documented by: Zolpidem Tartrate (Zolpidem Tartrate 5 Mg Tablet) 5 mg PO BEDTIME PRN PRN Reason: Insomnia <Tania Hayden PA-C - Last Filed: 02/02/21 08:39> Time Spent With Patient Time: Total time spent is greater than 50% in coordination of care (as documented) at patient's floor/unit and/or counseling patient: <Tania Hayden PA-C - Last Filed: 02/02/21 08:39> Time with patient: 15 - 24 minutes <KEYLA Lema Last Filed: 02/02/21 08:39> Quality Stroke Does the patient have a stroke diagnosis?: No <KEYLA Lema Last Filed: 02/02/21 08:39> VTE Prior VTE?: No <KEYLA Lema Last Filed: 02/02/21 08:39> VTE Risk Level:: Surgical - moderate <Tania Hayden PA-C - Last Filed: 02/02/21 08:39> VTE Device Contraindication: N/A - Device Ordered <Tania Hayden PA-C - Last Filed: 02/02/21 08:39> VTE Drug Contraindication: N/A - Med Ordered <Tania Hayden PA-C - Last Filed: 02/02/21 08:39>
[2021-02-02] MEDS: HYDROmorphone HCl 0.5 MG/0.5 ML SYRINGE IVPUSH ×2 (08:44→17:05)
[2021-02-02 11:40] VITALS: BP 127/67; PULSE 78; RESP 16; TEMP 36.8; O2SAT 100
[2021-02-02] MEDS: oxyCODONE HCl Immed Release 5 MG TABLET 10 MG PO ×2 (11:50→21:16)
[2021-02-02] MEDS: 0.9 % Sodium Chloride Flush 3 ML SYRINGE IVFLUSH ×2 (12:12→19:52)
--- NOTE | 2021-02-02 14:49 | MHC.CM.PN ---
CM MET WITH PT WITH THE ASSISTANCE OF [facility] [place] [facility]. PT REPORTS SHE LIVES WITH HER FRIEND AND SEVERAL FAMILY MEMBERS PT DENIES USE OF DME OR HOME SERVICES PT REPORTS SHE GOES TO THE [facility] FOR PRIMARY CARE, SHE DOES NOT KNOW THE NAME OF THE PROVIDER. PT COMPLETED A HCP TODAY NAMING HER FRIEND, BARI, HER AGENT. CURRENT DC PLAN IS HOME WITH NO SERVICES FAMILY TO TRANSPORT
[2021-02-02 15:49] VITALS: BP 127/68; PULSE 60; RESP 18; TEMP 36.4; O2SAT 99
[2021-02-02 19:19] VITALS: BP 119/62; PULSE 65; RESP 17; TEMP 36.8; O2SAT 97
[2021-02-03] VITALS: BP 129/87; PULSE 70; RESP 17; TEMP 36.9; O2SAT 95
[2021-02-03 03:44] VITALS: BP 125/66; PULSE 60; RESP 17; TEMP 37.5; O2SAT 96
[2021-02-03] MEDS: oxyCODONE HCl Immed Release 5 MG TABLET 10 MG PO ×2 (05:32→09:04)
[2021-02-03 07:37] VITALS: BP 111/73; PULSE 70; RESP 16; TEMP 36.7; O2SAT 98
--- NOTE | 2021-02-03 08:31 | P.PNGS_ITS ---
Subjective Subjective Date of Service: 02/03/21 <Tania Hayden PA-C - Last Filed: 02/03/21 08:35> 02/03/21 <Brad Plascencia MD - Last Filed: 02/03/21 10:31> Interval history: Passing flatus, had a BM yesterday. Advanced to a solid diet which she is tolerating without N/V. She has been OOB and ambulating. Her pain is well controlled on PO oxycodone. She wants to go home today. <Tania Hayden PA-C - Last Filed: 02/03/21 08:35> Physical Exam Vital Signs: Vital Signs: Last Vital Signs Temp 98.0 F 02/03/21 07:37 Pulse 70 02/03/21 07:37 Resp 16 02/03/21 07:37 BP 111/73 02/03/21 07:37 Pulse Ox 98 02/03/21 07:37 Body Mass Index 22.6 <Tania Hayden PA-C - Last Filed: 02/03/21 08:35> Const: General: healthy appearing, comfortable, no acute distress and alert <Tania Hayden PA-C - Last Filed: 02/03/21 08:35> Orientation/consciousness: patient oriented x3 <Tania Hayden PA-C - Last Filed: 02/03/21 08:35> Resp: Effort & Inspection: normal respiratory effort <Tania Hayden PA-C - Last Filed: 02/03/21 08:35> GI: Inspection: No distended and Yes incision (clean) <Tania Hayden PA-C - Last Filed: 02/03/21 08:35> Palpation (GI): Soft to palpation, Tenderness to palpation present (GI) (mild, incisional), no guarding and not rigid <KEYLA Lema Last Filed: 02/03/21 08:35> Percussion: Yes normal to percussion <KEYLA Lema Last Filed: 02/03/21 08:35> Skin: General skin exam: no rashes or lesions noted <KEYLA Lema Last Filed: 02/03/21 08:35> Neuro: General: patient oriented x3 <Tania Hayden PA-C - Last Filed: 02/03/21 08:35> Objective Data Active Medications Hydromorphone HCl (Hydromorphone Hcl 0.5 Mg/0.5 Ml Syringe) 0.5 mg IVPUSH Q3H PRN; Protocol PRN Reason: Pain, Severe (Pain Scale 7-10) Last Admin: 02/02/21 17:05 Dose: 0.5 mg Documented by: AMY [facility] 1,000 mg in 100 mls @ 400 mls/hr IV Q6H [facility] Last Infusion: 02/03/21 06:43 Dose: 0 mls/hr Documented by: EDWIN Lorazepam (Lorazepam 0.5 Mg Tablet) 0.5 mg PO BID PRN PRN Reason: anxiety Last Admin: 02/02/21 03:59 Dose: 0.5 mg Documented by: ALISA Ondansetron HCl (Ondansetron Hcl 4 Mg/2 Ml Vial) 4 mg IVPUSH Q8H PRN PRN Reason: Nausea and Vomiting Last Admin: 02/01/21 19:57 Dose: 4 mg Documented by: ALISA Oxycodone HCl (Oxycodone Hcl Immed Release 5 Mg Tablet) 5 mg PO Q4H PRN PRN Reason: Pain, Moderate (Pain Scale 4-6 Last Admin: 02/01/21 19:48 Dose: 5 mg Documented by: ALISA Oxycodone HCl (Oxycodone Hcl Immed Release 5 Mg Tablet) 10 mg PO Q4H PRN PRN Reason: Pain, Severe (Pain Scale 7-10) Last Admin: 02/03/21 05:32 Dose: 10 mg Documented by: TAMIKO Pharmacy Consult (Consult Rx Perform Med Rec) 1 each MISCELLANE ONCE PRN PRN Reason: Consult order Sodium Chloride (0.9 % Sodium Chloride Flush 3 Ml Syringe) [address] [facility] Last Admin: 02/02/21 19:52 Dose: 3 ml Documented by: EDWIN Zolpidem Tartrate (Zolpidem Tartrate 5 Mg Tablet) 5 mg PO BEDTIME PRN PRN Reason: Insomnia <Tania Hayden PA-C - Last Filed: 02/03/21 08:35> Labs CBC & Chem 7: : 02/02/21 05:11 02/02/21 05:11 <Tania Hayden PA-C - Last Filed: 02/03/21 08:35> Procedures Date of Service Date of Service: 02/03/21 <Tania Hayden PA-C - Last Filed: 02/03/21 08:35> Progress Note: A&P Assessment and plan (1) S/P right colectomy: Status: Acute <Tania Hayden PA-C - Last Filed: 02/03/21 08:35> (2) Lesion of colon: Status: Acute <Tania Hayden PA-C - Last Filed: 02/03/21 08:35> Assessment and Plan: ?50-year-old female presenting with lower GI bleed found to have a mass in the right colon on colonoscopy.? 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 She is now POD #2 s/p KADE right colectomy. She is doing much better this morning, clinically appearing well. Her pain is well controlled. She has return of GI function and is tolerating a solid diet. VSS. Abd exam benign, clean incision, soft with appropriate post op tenderness. She feels ready to go home today. Stable for d/c to home today, F/u in office with Dr. Plascencia. <Tania Hayden PA-C - Last Filed: 02/03/21 08:35> ?50-year-old female presenting with lower GI bleed found to have a m ass in the right colon on colonoscopy.? 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 She is now POD #2 s/p KADE right colectomy. She is doing much better this morning, clinically appearing well. Her pain is well controlled. She has return of GI function and is tolerating a solid diet. VSS. Abd exam benign, clean incision, soft with appropriate post op tenderness. She feels ready to go home today. Stable for d/c to home today, F/u in office with Dr. Plascencia. Patient much improved today with better pain control. Path pending. She is moving bowels and tolerating po well. Agree with discharge to home, follow up in one week <Brad Plascencia MD - Last Filed: 02/03/21 10:31> Fall Risk Details Current Medications: Current Medications Hydromorphone HCl (Hydromorphone Hcl 0.5 Mg/0.5 Ml Syringe) 0.5 mg IVPUSH Q3H PRN; Protocol PRN Reason: Pain, Severe (Pain Scale 7-10) Last Admin: 02/02/21 17:05 Dose: 0.5 mg Documented by: Acetaminophen (Ofirmev) 1,000 mg in 100 mls @ 400 mls/hr IV Q6H [facility] Last Infusion: 02/03/21 06:43 Dose: Infused Documented by: Lorazepam (Lorazepam 0.5 Mg Tablet) 0.5 mg PO BID PRN PRN Reason: anxiety Last Admin: 02/02/21 03:59 Dose: 0.5 mg Documented by: Ondansetron HCl (Ondansetron Hcl 4 Mg/2 Ml Vial) 4 mg IVPUSH Q8H PRN PRN Reason: Nausea and Vomiting Last Admin: 02/01/21 19:57 Dose: 4 mg Documented by: Oxycodone HCl (Oxycodone Hcl Immed Release 5 Mg Tablet) 5 mg PO Q4H PRN PRN Reason: Pain, Moderate (Pain Scale 4-6 Last Admin: 02/01/21 19:48 Dose: 5 mg Documented by: Oxycodone HCl (Oxycodone Hcl Immed Release 5 Mg Tablet) 10 mg PO Q4H PRN PRN Reason: Pain, Severe (Pain Scale 7-10) Last Admin: 02/03/21 05:32 Dose: 10 mg Documented by: Pharmacy Consult (Consult Rx Perform Med Rec) 1 each MISCELLANE ONCE PRN PRN Reason: Consult order Sodium Chloride (0.9 % Sodium Chloride Flush 3 Ml Syringe) 3 ml IVFLUSH [facility] Last Admin: 02/02/21 19:52 Dose: 3 ml Documented by: Zolpidem Tartrate (Zolpidem Tartrate 5 Mg Tablet) 5 mg PO BEDTIME PRN PRN Reason: Insomnia <Tania Hayden PA-C - Last Filed: 02/03/21 08:35> Time Spent With Patient Time: Total time spent is greater than 50% in coordination of care (as documented) at patient's floor/unit and/or counseling patient: <Tania Hayden PA-C - Last Filed: 02/03/21 08:35> Time with patient: 15 - 24 minutes <Tania Hayden PA-C - Last Filed: 02/03/21 08:35> Quality Stroke Does the patient have a stroke diagnosis?: No <Tania Hayden PA-C - Last Filed: 02/03/21 08:35> VTE Prior VTE?: No <Tania Hayden PA-C - Last Filed: 02/03/21 08:35> VTE Risk Level:: Surgical - moderate <Tania Hayden PA-C - Last Filed: 02/03/21 08:35> VTE Device Contraindication: N/A - Device Ordered <Tania Hayden PA-C - Last Filed: 02/03/21 08:35> VTE Drug Contraindication: N/A - Med Ordered <Tania Hayden PA-C - Last Filed: 02/03/21 08:35>
--- NOTE | 2021-02-03 09:24 | MHC.CM.PN ---
PT TO DC HOME TODAY WITH NO SERVICES PT WILL SELF ARRANGE TRANSPORTATION
--- NOTE | 2021-02-03 11:02 | PM.DS ---
DS: Providers Provider Date of Service: 02/03/21 Date of admission: 02/01/21 09:32 Primary care physician: Unknown Physician Attending physician on admission: Brad Plascencia DS: Diagnosis Discharge Diagnosis (1) S/P right colectomy: Status: Acute (2) Lesion of colon: Status: Acute DS: Summary Hospital Course Hospital Course: BRIEF HPI: 50-year-old female presenting with lower GI bleed found on colonoscopy to have a mass in the right colon. 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 Patient presents now for right hemicolectomy. HOSPITAL COURSE: On 02/01/21, a KADE right colectomy was performed by Dr. Plascencia without complication. The patient tolerated the procedure well, completed routine recovery in PACU and was admitted to the medical/surgical floor for observation. The patient had an uncomplicated recovery course. On POD #1, she had difficulty with pain control. Her analgesics were switched from morphine to dilaudid IV and oxycodone 10mg PO was added with better relief. She was tolerating clears without N/V but was not passing flatus or moving her bowels. She was ambulating. Her stone was removed. She began to move her bowels later in the day and was advanced to a low residue diet. On POD #2, the patient had much better pain control and was comfortable on oxycodone 10mg. She was tolerating a solid diet without n/v and continued to pass flatus. Her abdomen was soft with appropriate post op tenderness and clean incisions. She felt well and felt ready for discharge to home. She was discharged to home on 02/03/21. She is to follow up with Dr. Plascencia in office in 1 week. Pathology pending. Status at Discharge Functional status at discharge: independent ambulation Overall status at discharge: patient is progressing back to baseline Time Spent with Patient Time attestation: Total time spent providing and/or coordinating discharge services: Discharge coordination time: Greater than 30 minutes Quality: Stroke Does the patient have a stroke diagnosis?: No Physical Exam Vital Signs: Vital Signs: Last Vital Signs Temp 98.0 F 02/03/21 07:37 Pulse 70 02/03/21 07:37 Resp 16 02/03/21 07:37 BP 111/73 02/03/21 07:37 Pulse Ox 98 02/03/21 07:37 Body Mass Index 22.6 Const: General: comfortable, no acute distress and alert Orientation/consciousness: patient oriented x3 Resp: Effort & Inspection: normal respiratory effort GI: Inspection: No distended and Yes incision (clean) Palpation (GI): Soft to palpation, Tenderness to palpation present (GI) (mild, incisional) and no guarding Percussion: Yes normal to percussion Skin: General skin exam: no rashes or lesions noted Neuro: General: patient oriented x3 DS: Data Data Completed and Pending Completed studies during hospitalization [Text1]: Procedures Excision of Ascending Colon, Via Natural or Artificial Opening Endoscopic, Diagnostic (01/04/21) Excision of Cecum, Via Natural or Artificial Opening Endoscopic, Diagnostic (01/04/21) Excision of Rectum, Via Natural or Artificial Opening Endoscopic, Diagnostic (01/04/21) Pending studies at discharge: Pending at discharge 02/01/21 09:03 Surgical Path [Surgical] [PTH] Routine Discharge Plan Discharge Patient Disposition: Home, Self-Care Discharge Diagnosis: Right colon neoplasm Referrals: Brad Plascencia MD [Physician] - 1 Week Physician,Tarsha Schneider [Primary Care Provider] - 1 Week Discharge Medications: New oxycodone-acetaminophen [Endocet] 5-325 mg tablet 1 tab PO Q6H PRN (Reason: pain (scale score 7-10)) Qty: 20 RF: 0 Continued hydroxyzine HCl 25 mg tablet 1 tab PO TID PRN (Reason: Anxiety) RF: 0 escitalopram oxalate 10 mg tablet 1 tab PO DAILY RF: 0 lorazepam [Ativan] 0.5 mg tablet 0.5 mg PO BID PRN (Reason: anxiety) Qty: 20 RF: 0 Discharge Orders: Discharge Order (Routine); Ordered 02/03/21 Ordered By: Brad Plascencia Diet: regular diet Activity on Discharge: No heavy lifting Stand Alone Forms: Patient Portal Discharge page Activity Restrictions/Additional Instructions: No lifting > 10 pounds for 4 weeks No driving for one week Ice to the incision x 24 hours Remove dressing in 3 days Follow up in office in one week. Care Plan Goals: Return to normal diet and activity Health Concerns: Right colonic neoplasm, path pending Plan of Treatment: S/p hand assisted laparoscopic right colectomy Assessment: Right colon neoplasm Discharge Date/Time: 02/03/21 09:36
== END 2021-02-03 09:36 | disposition home or self-care (01) | DRG 231 ==
LOC: HO.SSSA 09:51 → HO.S3 10:31
PROVIDERS: Nurse Practitioner; Admitting Provider Surgery; Visit Provider Surgery
PROC: 0DTE4ZZ Resection of Large Intestine, Percutaneous Endoscopic Approach (ICD-10-PCS; principal; 2021-02-01 07:30)
DX: D12.2 Benign neoplasm of ascending colon (principal); F17.210 Nicotine dependence, cigarettes, uncomplicated; F41.9 Anxiety disorder, unspecified; Z71.6 Tobacco abuse counseling; Z20.822 Contact with and (suspected) exposure to COVID-19; Z79.899 Other long term (current) drug therapy
CPT/HCPCS: 36415; 80048; 81025; 85025; 85027; 86850; 86900; 86901; 87635; 88309; 93005; 99024; C1758; J0131; J1100; J1170; J2250; J2270; J2405; J2550; J2765; J3010

== ENCOUNTER → 2021-02-14 10:16 | Outpatient (BNVA) | payer MEDICAID, SELFPAY | PROVIDERS: Visit Provider Surgery | DX: N63.11 Unspecified lump in the right breast, upper outer quadrant (principal); F17.210 Nicotine dependence, cigarettes, uncomplicated; Z83.3 Family history of diabetes mellitus; Z90.49 Acquired absence of other specified parts of digestive tract; Z82.49 Family history of ischemic heart disease and other diseases of the circulatory system; Z80.0 Family history of malignant neoplasm of digestive organs; Z80.3 Family history of malignant neoplasm of breast; Z79.899 Other long term (current) drug therapy | CPT/HCPCS: 99212 ==

== ENCOUNTER 2021-02-21 13:57 | Outpatient (REF) | payer MEDICAID, SELFPAY ==
--- NOTE | ~2021-02-21 | MM_ITS ---
EXAMINATION: MM DIAGNOSTIC DIGITAL BREAST TOMOSYNTHESIS, BILATERAL US DIAGNOSTIC ULTRASOUND BREAST, BILATERAL CLINICAL INFORMATION: 1 month history increased palpable fullness upper outer right breast noted by patient. Mild tenderness. No erythema or discharge. Age 50. History benign right ultrasound-guided breast biopsy 12/23/2018 (Benign breast parenchyma with robust lymphohistiocytic inflammation, stromal fibrosis and dilated ductular epithelium, consistent with a ruptured cyst; negative for epithelial atypia, hyperplasia, and carcinoma. No known family history breast cancer. The lifetime risk of breast cancer based on the Tyrer-Cuzick Model is 11%. COMPARISON: Mammography: 01/23/2019, 12/10/2018 (baseline).; Ultrasound right breast 12/10/2018, ultrasound-guided biopsy right breast 12/23/2018. TECHNIQUE: Digital breast tomosynthesis is performed in both the craniocaudal and mediolateral oblique views along with computer-aided detection (CAD). Synthesized 2D images are generated from the tomosynthesis. Technical limitations for right breast, decreased compression noted by technologist due to pain. Targeted ultrasound right breast is performed 8:00 through 2:00 position and targeted ultrasound left breast is performed 11:00 through 6:00 position. Grayscale imaging and color Doppler are performed without and with harmonics. FINDINGS: The breasts are heterogeneously dense, which may obscure small masses (ACR BI-RADS breast composition Category c). There is expected suboptimal compression on right consistent with the limitations noted by the technologist at time of imaging. There is generalized increased parenchymal density in area of known prior benign cystic changes mid upper outer right breast. This corresponds to the area of palpable concern noted by the patient. Grouped benign-appearing coarse calcifications are again noted just beneath the skin upper outer right breast. No significant changes. Both breasts show fibrocystic changes with rounded and oval densities, waxing and waning from prior exams. Neither breast shows architectural abnormality. No abnormal calcifications. The axilla and skin contours are unremarkable. Ultrasound right breast demonstrates macrolobulated simple cyst at site of palpable concern upper outer quadrant measuring approximately 4.5 x 2.7 x 4.2 cm. Prior measurements in 2019 are 3.4 x 1.6 cm. Ultrasound left breast demonstrates numerous simple cysts scattered throughout the breast. The largest 2 cysts are 1:00 position 2 cm from nipple measuring 2.6 x 1.0 cm and at 6:00 position measuring 2.0 x 0.9 cm, respectively. Other numerous cysts are smaller in size. No solid mass or architectural abnormality. Results are discussed with the patient at time of visit. Results called and discussed with Dr. Plascencia on 02/21/2021. MM/MM tomosynthesis diagnostic BI IMPRESSION: 1. Right: Simple cyst upper outer quadrant corresponding to palpable concern and tenderness measuring 4.5 cm. Limited mammographic imaging on right due to decreased compression. Left: Numerous simple cysts, largest 2.6 cm. No significant changes. ASSESSMENT: BI-RADS 2: Benign RECOMMENDATION: 1. Consider ultrasound-guided aspiration dominant cyst right breast for symptomatic relief and thereafter follow up mammography with improved compression, if patient able. 2. Otherwise, routine annual mammography screening. This patient's information was entered into a reminder system with a target due date for their next mammogram.
== END 2021-02-21 13:58 | disposition home or self-care (01) ==
LOC: HO.MAMMO 13:57
PROVIDERS: PCP Registered Nurse Community Health; Visit Provider Surgery
DX: N63.11 Unspecified lump in the right breast, upper outer quadrant (principal); Z90.49 Acquired absence of other specified parts of digestive tract
CPT/HCPCS: 76642; 77062; 77066

== ENCOUNTER → 2021-03-21 14:56 | Outpatient (BNVA) | payer MEDICAID, SELFPAY | PROVIDERS: PCP Registered Nurse Community Health; Referring Provider Registered Nurse Community Health; Visit Provider Surgery | DX: N60.01 Solitary cyst of right breast (principal) | CPT/HCPCS: 99212 ==

== ENCOUNTER 2021-04-07 08:13 | Outpatient (REF) | payer MEDICAID, SELFPAY ==
--- NOTE | ~2021-04-07 | MM_ITS ---
EXAMINATION: MM DIAGNOSTIC DIGITAL BREAST TOMOSYNTHESIS, RIGHT US DIAGNOSTIC ULTRASOUND BREAST, RIGHT CLINICAL INFORMATION: Tenderness with palpable fullness upper outer right breast, recent imaging shows 4.5 cm cyst. Limited mammography compression on previous imaging due to the tenderness and cyst. Patient presents today for therapeutic cyst aspiration and follow-up right breast imaging. No known family history breast cancer. TC score 2%. COMPARISON: Mammography: 02/21/2021, 12/10/2018; targeted right breast ultrasound 02/21/2021. TECHNIQUE: Digital breast tomosynthesis is performed in both the craniocaudal and mediolateral oblique views along with computer-aided detection (CAD). Synthesized 2D images are generated from the tomosynthesis. Ultrasound right breast is targeted to the upper outer quadrant. FINDINGS: Ultrasound, right: Targeted right breast ultrasound demonstrates interval substantial decrease in size of the dominant cyst upper outer quadrant. Current measurements are 1.9 x 1.1 x 1.7 cm. Prior measurements are 4.5 x 2.7 x 4.2 cm. Discussion with the patient reveals that she also notes decreased size of the cyst since prior imaging and no longer has breast tenderness. She wishes to cancel the therapeutic aspiration. Mammography, right: The breasts are heterogeneously dense, which may obscure small masses (ACR BI-RADS breast composition Category c). Parenchymal pattern is similar to prior study 2018. The cyst upper outer quadrant is decreased consistent with the ultrasound today and patient perception. Compression on current mammogram is optimized compared with the prior study last month. There is no interval mass or architectural abnormality. Some scattered punctate calcifications are again seen. Skin contours are smooth. Results called to medical billing service for Dr. Plascencia on 04/07/2021. MM/MM tomosynthesis diagnostic RT IMPRESSION: 1. Right breast cyst decreased in size from prior imaging. Current measurement 1.9 cm compared with prior measurement 4.5 cm. Patient no longer notes right breast tenderness. Therapeutic aspiration not performed as per patient request. 2. No mammographic evidence of malignancy. ASSESSMENT: BI-RADS 2: Benign RECOMMENDATION: Routine annual mammography screening. This patient's information was entered into a reminder system with a target due date for their next mammogram.
== END 2021-04-07 08:14 | disposition home or self-care (01) ==
LOC: HO.MAMMO 08:13
PROVIDERS: Visit Provider Surgery
DX: N60.01 Solitary cyst of right breast (principal)
CPT/HCPCS: 76642; 77061; 77065

== ENCOUNTER 2022-06-15 09:43 | Outpatient (REF) | payer MEDICAID, SELFPAY ==
--- NOTE | ~2022-06-15 | MM_ITS ---
EXAMINATION: MM SCREENING DIGITAL BREAST TOMOSYNTHESIS, BILATERAL CLINICAL INFORMATION: Screening. Asymptomatic. History benign right ultrasound-guided biopsy 12/23/2018. The lifetime risk of breast cancer based on the Tyrer-Cuzick Model is 9%. COMPARISON: Multiple prior breast mammogram and ultrasound studies, most recent mammography unilateral 04/07/2021. TECHNIQUE: Digital breast tomosynthesis is performed in both the craniocaudal and mediolateral oblique views along with computer-aided detection (CAD). Synthesized 2D images are generated from the tomosynthesis. FINDINGS: The breasts are heterogeneously dense, which may obscure small masses (ACR BI-RADS breast composition Category c). There is a diffuse bilateral fibrocystic parenchymal pattern with multiple oval and round and smooth waxing and waning masses. Numerous cysts noted on prior ultrasound studies. Largest mass on left is smooth anterior upper outer left breast 2.7 cm. Largest mass on right is smooth anterior approximately 2.0 cm. No architectural abnormality. There are scattered bilateral round calcifications, greater anteriorly. Right breast again has biopsy clip marker posterior central 12:00 position. The axilla and skin contours are unremarkable. MM/MM tomosynthesis screening BI IMPRESSION: Diffuse fibrocystic parenchymal pattern with multiple waxing and waning masses. ASSESSMENT: BI-RADS 2: Benign RECOMMENDATION: -Routine annual mammography screening. -Given the breast density and fibrocystic pattern, patient may benefit from bilateral additional adjunct screening breast ultrasound. This patient's information was entered into a reminder system with a target due date for their next mammogram.
== END 2022-06-15 09:44 | disposition home or self-care (01) ==
LOC: HO.MAMMO 09:43
PROVIDERS: PCP Registered Nurse Community Health; Visit Provider Registered Nurse Community Health
DX: Z12.31 Encounter for screening mammogram for malignant neoplasm of breast (principal)
CPT/HCPCS: 77063; 77067

== ENCOUNTER 2022-12-03 17:28 | Emergency (ER) | payer MEDICAID, SELFPAY | END 2022-12-03 20:30 | disposition left against medical advice (07) | LOC: HO.ED 20:28 | PROVIDERS: Emergency Provider Emergency Medicine | DX: M79.641 Pain in right hand (principal) ==

== ENCOUNTER 2023-07-11 10:49 | Outpatient (REF) | payer MEDICAID, SELFPAY ==
--- NOTE | ~2023-07-11 | XR_ITS ---
EXAMINATION: XR LUMBOSACRAL SPINE WITH OBLIQUES CLINICAL INFORMATION: Back pain after fall COMPARISON: 09/16/2017 TECHNIQUE: AP, both oblique, and lateral views of the lumbar spine. Lateral view of the lumbosacral junction. FINDINGS: The lumbar vertebra have normal height and alignment. The anterior and posterior elements are intact. Chronic mild narrowing of disc space and very small anterior traction osteophytes at L3-L4. Also, small anterior vertebral osteophytes are seen at other levels of the lumbar spine. There is minimal narrowing of disc space at L5-S1. No evidence of pars interarticularis defects. No vertebral compression fractures. Small Schmorl's nodes seen at some of the vertebral endplates. No suspicious osseous lesions. Sacrum and sacroiliac joints are unremarkable. XR/XR lumbar spine 4V min IMPRESSION: * No acute abnormalities in the lumbosacral spine. There is no fracture or malalignment. * Again noted is mild spondylosis of the lumbar spine.
--- NOTE | ~2023-07-11 | XR_ITS ---
EXAMINATION: XR THORACOLUMBAR SPINE CLINICAL INFORMATION: Pain COMPARISON: None available. TECHNIQUE: 2 views FINDINGS: Mild kyphosis but no fracture or destructive process. The paraspinal soft tissue shadows are normal. XR/XR thoracic spine 2V IMPRESSION: Unremarkable study.
== END 2023-07-11 10:50 | disposition home or self-care (01) ==
LOC: HO.HHCX 10:49
PROVIDERS: Visit Provider Pediatrics
DX: M54.42 Lumbago with sciatica, left side (principal); M54.41 Lumbago with sciatica, right side
CPT/HCPCS: 72070; 72110

== ENCOUNTER 2024-05-20 16:11 | Outpatient (REF) | payer MEDICAID, SELFPAY ==
--- OUTSIDE RECORDS SUMMARY | 2024-05-20 19:14 | XMS_ITS | Encounter Summary ---
Author Organization [employer] Address [address] [facility] [address] [place] [address] Care Team Providers Care Marriage And Family Teacher Name Role Phone Celia Valadez NP Primary Care Provider [phone] Reason for Referral * Imaging (Routine) - Authorized Specialty Diagnoses / Procedures Referred By Contac t Referred To Contact Radiology Diagnoses Acute right-sided thoracic back pain Procedures MR Thoracic Spine w/o Contrast Mariama Fortune MD [address] [place] [address] Phone: tel: fax: [address] Phone: tel: fax: Referral ID Status Reason Start Date Expiration Date V isits Requested Visits Authorized [id number] Authorized 05/12/2024 05/12/2025 1 1 Encounter Details Date Type Department Care Team (Late st Contact Info) Description 05/12/2024 11:15 AM EST Office Visit [facility] MEDICINE [address] [place] [id number] Mariama Fortune MD [address] [place] [id number] Acute right-sided thoracic back pain (Primary Dx) Social History Tobacco Use Types Packs/Day Years Used Date Smoking Tobacco: Former Cigarettes Passive Smoke Exposure: Past Tobacco Cessation:Counseling Given: Not Answered Alcohol Use Standard Drinks/Week Comments Never 0 (1 standard drink = 0.6 oz pur e alcohol) Comments Unknown Sex and Gender Information Value Date Recorded Sex Assigned at Female 01/15/2022 10:21 AM EDT Legal Sex Female 10:21 AM EDT Gender Identity Female 01/15/2022 10:21 AM EDT Sexual Orientation Straight 01/15/2022 10 :21 AM EDT documented as of this encounter Last Filed Vital Signs Vital Sign Reading Time Taken Comments Blood Pressure 124/77 05/12/2024 11:02 AM EST Pulse 77 05/12/2024 11:02 AM EST Temperature 35.9 ??C (96.7 ??F) 05/12/2024 11:[address] Respiratory Rate 19 05/12/2024 11:02 AM EST Oxygen Saturation - - Inhaled Oxygen Concentration - - Weight 61.9 kg (136 lb 6.4 oz) 05/12/2024 11:02 AM EST Height 162.6 cm (5' 4 ) 05/12/2024 11:02 AM EST Body Mass Index 23.41 05/12/2024 11:02 AM EST documented in this encounter Progress Notes * Mariama Agudelo MD - 05/12/2024 11:15 AM EST Images from the original note were not included. SUBJECTIVE: Mary Beth Padilla is a 53 y.o. year old female who presents for acute thoracic pain . Acute Concerns: Patient has been having this pain for the past 5 to 6 months but reports for the past 3 days pain is has been really bad, worsening described as acute sharp like he has been stabbed, she denies any trauma, she reports she was just sleeping up her pants and when she was doing that movement pain cameon suddenly, patient has been trying with frdg-rgd-tohyizl medication acetaminophen and putting on Bengay on the area, patient denies chest pain shortness of breath, dizziness, palpitations, nausea or vomiting, abdominal pain or other symptoms Social History Social History Narrative Not on file Patient Active Problem List Diagnosis Abnormal finding on mammography Hepatitis B antibody positive Lumbar spondylosis Major depressive disorder Sciatica Acute right-sided thoracic back pain No family history on file. Review of Systems Constitutional: Negative. HENT: Negative. Respiratory: Negative. Cardiovascular: Negative. Musculoskeletal: Positive for arthralgias, back pain and myalgias. OBJECTIVE: Vitals: 05/12/24 1102 BP: 124/77 BP Location: Left arm Patient Position: Sitting BP Cuff Size: Adult Pulse: 77 Resp: 19 Temp: 96.7 ??F (35.9 ??C) TempSrc: Oral Weight: 136 lb 6.4 oz (61.9 kg) Height: 5' 4 (1.626 m) Physical Exam Constitutional: Appearance: Normal appearance. Cardiovascular: Rate and Rhythm: Normal rate and regular rhythm. Pulmonary: Effort: Pulmonary effort is normal. Breath sounds: Normal breath sounds. Abdominal: General: Abdomen is flat. Palpations: Abdomen is soft. Musculoskeletal: Arms: Comments: Localized acute pain on right side of upper back Neurological: Mental Status: She is alert. Follow Up: No follow-ups on file. Current Outpatient Medications on File Prior to Visit Medication Sig Dispense Refill acetaminophen (Tylenol) 500 MG tablet Take 1 to 2 tablet by mouth every 4 to 6 hours as needed for pain 90 tablet 3 baclofen (Lioresal) 10 MG tablet Take one tablet TID PRN 42 tablet 0 buPROPion SR (Wellbutrin SR) 150 MG 12 hr tablet take 1 tablet by oral route for one week then increase to twice a day ketotifen (Zaditor) 0.025 % ophthalmic solution Administer 1 drop into both eyes 2 times daily. As needed for itching/allergies 5 mL 0 lidocaine (Lidoderm) 5 % patch Apply 1 patch topically Once per day. Remove & discard patch within 12 hours or as directed by MD. 30 patch 0 naloxone (Narcan) 4 mg/0.1 mL nasal spray FOR SUSPECTED OPIOID OVERDOSE. SPRAY 0.1mL IN ONE NOSTRIL. REPEAT IN ALTERNATE NOSTRIL 2-3 MINUTES IF NEEDED. SEEK MEDICAL ATTENTION IMMEDIATELY EVEN IF PATIENT RESPONDS. Nicotine 21-14-7 MG/24HR kit One 21 mg patch daily x 6 wk, then one 14 mg patch daily x 2 wk, then one 7 mg patch daily x 2 wk No current facility-administered medications on file prior to visit. Problem List Items Addressed This Visit Acute right-sided thoracic back pain - Primary Apply heat on affected area Flexeril 10 mg every 8 hours prescribed, patient is aware of side effects somnolence, she is aware she cannot drive or do activities that require her contrast concentration while on this medication Ibuprofen 800 mg every 8 hours as needed with full stomach did not take it today take it tomorrow on Toradol ordered today MRI of thoracic back ordered today Relevant Medications cyclobenzaprine (Flexeril) 10 MG tablet ibuprofen 800 MG tablet ketorolac (Toradol) injection 30 mg (Completed) Other Relevant Orders MR Thoracic Spine w/o Contrast documented in this encounter Miscellaneous Notes * Assessment & Plan Note - Mariama Agudelo MD - 05/12/2024 4:43 PM EST Associated Problem(s): Acute right-sided thoracic back pain Apply heat on affected area Flexeril 10 mg every 8 hours prescribed, patient is aware of side effects somnolence, she is aware she cannot drive or do activities that require her contrast concentration while on this medication Ibuprofen 800 mg every 8 hours as needed with full stomach did not take it today take it tomorrow on Toradol ordered today MRI of thoracic back ordered today documented in this encounter Plan of Treatment Scheduled Orders Name Type Priority Associated Diagnoses Orde r Schedule MR Thoracic Spine w/o Contrast Imaging Routine Acute right-sided thoracic back pain Expected: 05/12/2024, Expires: 05/12/2025 documented as of this encounter Visit Diagnoses Diagnosis Acute right-sided thoracic back pain- Primary documented in this encounter Administered Medications Inactive Administered Medications - up to 3 most recent administrations Medication Order MAR Action Action Date Dose Rate Site ketorolac (Toradol) injection 30 mg 30 mg, Intramuscular, Once, On Sat05/12/24 at 1130, For 1 doseIndications:Acute right-sided thoracic back pain Given 05/12/2024 11:30 AM EST 30 mg Left Deltoid documented in this encounter Care Teams Marriage And Family Teacher Relationship Specialty Start Date End Date Celia Valadez NP [address] [place] [id number] PCP - General Family Medicine 10/6/23 documented as of this encounter
--- OUTSIDE RECORDS SUMMARY | 2024-05-20 19:14 | XMS_ITS | Encounter Summary ---
Author Organization [email or web address] [facility] Address [address] [place] [address] [address] [place] [address] Care Team Providers Care Stenciling Machine Tender Name Role Phone Shruthi Mohamud Primary Care Provider Shruthi Mohamud Primary Care Provider [phone] Celia Valadez NP Primary Care Provider [phone] Encounter Details Date Type Department Care Team (Late st Contact Info) Description 06/20/2022 Orders Only [facility] MEDICINE [address] [place] [id number] Shruthi Mohamud FNP [address] [place] [address] Dept [place] [address] Social History Tobacco Use Types Packs/Day Years Used Date Smoking Tobacco: Never Assessed Comments Unknown Sex and Gender Information Value Date Recorded Sex Assigned at Female 01/15/2022 10:21 AM EDT Legal Sex Female 10:21 AM EDT Gender Identity Female 01/15/2022 10:21 AM EDT Sexual Orientation Straight 01/15/2022 10 :21 AM EDT documented as of this encounter Plan of Treatment Not on file documented as of this encounter Visit Diagnoses Not on filedocumented in this encounter Care Teams Stenciling Machine Tender Relationship Specialty Start Date End Date Shruthi Mohamud FNP PCP - General Family Medicine 11/13/21 08/20/22 Shruthi Mohamud FNP PCP - General Family Medicine 08/21/22 12/20/22 Celia Valadez NP [address] [place] [phone] PCP - General Family Medicine 12/21/22 documented as of this encounter
--- OUTSIDE RECORDS SUMMARY | 2024-05-20 19:14 | XMS_ITS | Clinical Summary ---
Author Organization [email or web address] [facility] Address [address] [place] [address] Care Team Providers Care Technical Applications Scientist Name Role Phone Unavailable Primary Care Provider Unavailabl e Social History Tobacco Use Types Packs/Day Years Used Date Smoking Tobacco: Never Assessed Comments Unknown Sex and Gender Information Value Date Recorded Sex Assigned at Not on file Legal Sex Female 11:51 PM EST Gender Identity Not on file Sexual Orientation Not on file Plan of Treatment Health Maintenance Due Date Last Done Comments Breast Cancer Screening 1970 DTaP,Tdap,and Td Vaccines (1 - Tdap) 10/03/1990 Hepatitis B Vaccines (1 of 3 - 19+ 3-dose series) 10/03/1990 Cervical Cancer Screening: P ap Smear 10/03/1992 Pneumococcal Vaccine: 50+ Ye ars (1 of 1 - PCV) 10/03/2021 Zoster Vaccines (1 of 2) 10/03/2021 COVID-19 Vaccine ( - 2023-2 5 season) 2023 Influenza Vaccine (#1) 2023 HIB Vaccines Aged Out No longer eligi ble based on patient's age to complete this topic HPV Vaccines Aged Out No longer eligi ble based on patient's age to complete this topic Hepatitis A Vaccines Aged Out No long er eligible based on patient's age to complete this topic IPV Vaccines Aged Out No longer eligi ble based on patient's age to complete this topic MMR Vaccines Aged Out No longer eligi ble based on patient's age to complete this topic Meningococcal ACWY Vaccine Aged Out N o longer eligible based on patient's age to complete this topic Meningococcal B Vacine Aged Out No lo nger eligible based on patient's age to complete this topic Pneumococcal Vaccine: Pediat rics (0 to 5 Years) and At-Risk Patients (6 to 64 Years) Aged Out No longer eligible b ased on patient's age to complete this topic RSV Immunization Patients Un iker 20 months Aged Out No longer eligible b ased on patient's age to complete this topic Varicella Vaccines Aged Out No longer eligible based on patient's age to complete this topic
--- OUTSIDE RECORDS SUMMARY | 2024-05-20 19:14 | XMS_ITS | Encounter Summary ---
Author Organization [employer] Address [address] [place] [address] Care Team Providers Care Chalk Molding Machine Operator Name Role Phone Celia Valadez NP Primary Care Provider [phone] Reason for Visit * Reason Onset Date Comments Nurse Triage 05/12/2024 Encounter Details Date Type Department Care Team ([facility] st Contact Info) Description 05/12/2024 Telephone [facility] MEDICINE [address] [place] [address] Celia Valadez NP [address] [place] [address] Nurse Triage Social History Tobacco Use Types Packs/Day Years Used Date Smoking Tobacco: Former Cigarettes Passive Smoke Exposure: Past Alcohol Use Standard Drinks/Week Comments Never 0 (1 standard drink = 0.6 oz pur e alcohol) Comments Unknown Sex and Gender Information Value Date Recorded Sex Assigned at Female 01/15/2022 10:21 AM EDT Legal Sex Female 10:21 AM EDT Gender Identity Female 01/15/2022 10:21 AM EDT Sexual Orientation Straight 01/15/2022 10 :21 AM EDT documented as of this encounter Miscellaneous Notes * Telephone Encounter - Yumiko Falcon RN - 05/12/2024 9:39 AM EST No stock patch sawyer needed as this personal lines underwriter speaks Kiswahili. Call returned to Mary Beth Padilla to triage below. Reports having mid upper back pain this morning. Per pt felt a pinching sensation when pulling up her pants. Rates pain 8/10. Per pt pain is worse with movement. Per pt has not taken any pain meds. Pt reports pain is radiating to left leg. No recent injury or fall prior to this morning. Pt states similar to previous episode of acute onset back pain (see OV 11/2023). Pt states muscle relaxer given at that time caused difficulty with sleep due to increased anxiety when taking night dose. Pt given sick on site visit for today for exam with red team provider. Protocol Used: Back Injury (Adult) Protocol-Based Disposition: See in Office or Video Visit Today or Tomorrow Future Appointments Date Time Provider Department Center 05/12/2024 11:15 AM Mariama Agudelo MD [facility] Insurance verified as active per Real Time Eligibility in [facility]. Video visit offer not recorded Positive Triage Question: * Moderate pain (e.g., interferes with normal activities) and high-risk adult (e.g., age > 60 years, osteoporosis, chronic steroid use) * All higher-acuity triage questions were negative Care Advice Discussed: * Reassurance and Education - Bending or Twisting Injury (Strain, Sprain) * Reasons To Call Back - You become worse * Telephone Encounter - Nuno Burch - 05/12/2024 9:25 AM EST Symptom: Back Pain - Not From Injury Outcome: Transfer to a nurse or provider NOW! Reason: Age over 30: sudden AND severe upper back pain The caller accepted this outcome. Contact pt at [phone] documented in this encounter Plan of Treatment Not on file documented as of this encounter Visit Diagnoses Not on filedocumented in this encounter Care Teams Chalk Molding Machine Operator Relationship Specialty Start Date End Date Celia Valadez NP [address] [place] [phone] PCP - General Family Medicine 12/21/22 documented as of this encounter
--- OUTSIDE RECORDS SUMMARY | 2024-05-20 19:14 | XMS_ITS | Encounter Summary ---
Author Organization [employer] [facility] Address [address] [place] [address] [address] [place] [address] Care Team Providers Care Registrar [employer] Name Role Phone Shruthi Mohamud Primary Care Provider Shruthi Mohamud Primary Care Provider [phone] Celia Valadez NP Primary Care Provider [phone] Encounter Details Date Type Department Care Team (Late st Contact Info) Description 06/20/2022 Abstract [facility] MEDICINE [address] [place] [address] Shruthi Mohamud FNP [address] [place] [address] Dept [place] [address] Social History Tobacco Use Types Packs/Day Years [...] on filedocumented in this encounter Care Teams Registrar College [employer] Relationship Specialty Start Date End Date Shruthi Mohamud FNP PCP - General Family Medicine 11/13/21 08/20/22 Shruthi Mohamud FNP PCP - General Family Medicine 08/21/22 12/20/22 Celia Valadez NP [address] [place] [address] PCP - General Family Medicine 12/21/22 documented as of this encounter
--- OUTSIDE RECORDS SUMMARY | 2024-05-20 19:14 | XMS_ITS | Clinical Summary ---
Author Organization [employer] Address [address] [facility] [address] [place] [address] Care Team Providers Care Wardrobe Specialty Worker Name Role Phone Celia Valadez NP Primary Care Provider [phone] Allergies No known active allergies Medications buPROPion SR (Wellbutrin SR) 150 MG 12 hr tablet take 1 tablet by oral route for one week then increase to twice a day 2 Active Nicotine 21-14-7 MG/24HR kit One 21 mg patch daily x 6 wk, then one 14 mg patch daily x 2 wk, then one 7 mg patch daily x 2 wk 2 Active naloxone (Narcan) 4 mg/0.1 mL nasal spray FOR SUSPECTED OPIOID OVERDOSE. SPRAY 0.1mL IN ONE NOSTRIL. REPEAT IN ALTERNATE NOSTRIL 2-3 MINUTES IF NEEDED. SEEK MEDICAL ATTENTION IMMEDIATELY EVEN IF PATIENT RESPONDS. 3 Active acetaminophen (Tylenol) 500 MG tabletIndication s:Lumbar spondylosis Take 1 to 2 tablet by mouth every 4 to 6 hours as needed for pain 90 tablet 3 3 Active ketotifen (Zaditor) 0.025 % ophthalmic solutionIndicati ons:Itch of eye Administer 1 drop into both eyes 2 times daily. As needed for itching/allergi es 5 mL 3 Active baclofen (Lioresal) 10 MG tabletIndication s:Acute bilateral thoracic back pain Take one tablet TID PRN 42 tablet 4 Active lidocaine (Lidoderm) 5 % patchIndications :Acute bilateral thoracic back pain Apply 1 patch topically Once per day. Remove & discard patch within 12 hours or as directed by . 30 patch 4 Active cyclobenzaprine (Flexeril) 10 MG tabletIndication s:Acute right-sided thoracic back pain Take 0.5 tablets (5 mg) by mouth 3 times daily. 30 tablet 1 5 06/22/19 25 Active ibuprofen 800 MG tabletIndication s:Acute right-sided thoracic back pain Take 1 tablet (800 mg) by mouth every 8 (eight) hours if needed for mild pain for up to 20 days. 30 tablet 1 5 06/02/19 25 Active Hospital, Clinic, or Other Facility Administered Medication Ordered Dose Route Frequency Start Date End Date Status ketorolac (Toradol) injection 30 mgIndications:Acute right-sided thoracic back pain 30 mg IM Once 05/12/2024 05/12/2024 Ended Active Problems Problem Noted Date Diagnosed Date Acute right-sided thoracic back pain 05/12/2024 Assessment & Plan (05/12/2024 4:43 PM EST): Apply heat on affected area Flexeril 10 [...] today MRI of thoracic back ordered today Abnormal finding on mammography 12/12/2018 Lumbar spondylosis 09/23/2017 Hepatitis B antibody positive 12/14/2016 Major depressive disorder 12/14/2016 Sciatica 12/14/2016 Encounters Date Type Department Care Team Description 05/12/2024 11:15 AM EST Office Visit [facility] [address] [place] [id number] Mariama Fortune MD Acute right-sided thoracic back pain (Primary Dx) 05/12/2024 Travel 05/12/2024 Telephone [facility] [address] [place], [place] [id number] Celia Valadez NP Nurse Triage from Last 3 Months Immunizations Name Administration Dates Next Due Influenza injectable quadriv alent IIV4 with preservative 12/14/2016 Moderna Covid-19 Vaccine 12+ 07/06/2020 Pneumococcal Polysaccharide PPSV23 12/14/2016 Tdap 12/04/2022 Social History Tobacco Use Types Packs/Day Years [...] Orientation Straight 01/15/2022 10 :21 AM EDT Last Filed Vital Signs Vital Sign Reading Time Taken Comments Blood Pressure 124/77 05/12/2024 11:02 AM EST Pulse 77 05/12/2024 11:02 AM EST Temperature 35.9 ??C (96.7 ??F) 05/12/2024 11:[address] Respiratory Rate 19 05/12/2024 11:02 AM EST Oxygen Saturation 99% 12/02/2023 10:09 AM EDT Inhaled Oxygen Concentration - - Weight 61.9 kg (136 lb 6.4 oz) 05/12/2024 11:02 AM EST Height 162.6 cm (5' 4 ) 05/12/2024 11:02 AM EST Body Mass Index 23.41 05/12/2024 11:02 AM EST Plan of Treatment Health Maintenance Due Date Last Done Comments CT Colonography 1971 Colonoscopy 1971 Colorectal Cancer Screening 1971 Depression Screening 1971 FIT DNA/Cologuard 1971 FIT 1971 FOBT 1971 HIV Screening 1971 SDOH Screening 1971 Sigmoidoscopy 1971 Alcohol/Substance Use Screening 1983 Family Planning (PISQ) 10/03/1986 Hepatitis C Screening 10/03/1989 Hepatitis B Vaccines (1 of 3 - 19+ 3-dose series) 10/03/1990 Pap Smear 10/03/1992 Cervical Cancer Screening 10/03/2001 HPV/Cotest 10/03/2001 Pneumococcal Vaccine: 50+ Years (2 of 2 - PCV) 10/03/2021 12/14/2016 Zoster Vaccines (1 of 2) 10/03/2021 COVID-19 Vaccine (3 - season) 2023 08/03/2020, 07/06/2020 Influenza Vaccine (#1) 2023 12/14/2016 Mammogram 06/15/2024 06/15/2022, /03/2022, 04/07/2021, Additional history exists Tobacco Screening 05/12/2025 05/12/2024 DTaP/Tdap/Td Vaccines (2 - Td or Tdap) 12/04/2032 12/04/2022 RSV Patients and Patients Aged 60 years or older (1 - 1-dose 75+ series) 10/03/2046 HIB Vaccines Aged Out No longer eligi [...] patient's age to complete this topic Meningococcal Vaccine Aged Out No juliette elizabeth eligible based on patient's age to complete this topic RSV under 20 months Aged Out No longe r eligible based on patient's age to complete this topic Rotavirus Vaccines Aged Out No longer eligible based on patient's age to complete this topic Procedures Procedure Name Priority Date/Time Associated Diagnosis Comments BI MAMMOGRAM SCREENING TOMOSYNTHESIS BILATERAL Routine 06/15/2022 10:24 AM EDT from Last 3 Months or Most Recently Relevant to Health Maintenance Results * BI Mammogram Screening Tomosynthesis Bilateral (06/15/2022 10:24 AM EDT) Anatomical Region Laterality Modality Breast Bilateral Mammography 06/15/2022 10:2 4 AM EDT Narrative 06/18/2022 8:44 AM EDT ? [facility] ? [address] ?[place] [address] ? Mammography Report ? Signed ? Patient: Randy,Mary Beth ?MR#: [id number] ?? [id number] ? : 1970 ?Acct:[id number] ? Age/Sex: 51 / F ?ADM Date: 03/31/23 ? Loc: HO.MAMMO ? Attending Dr: Rufina Wolfe SOLE SKIVER ? Ordering Physician: Shruthi Mohamud CORPORATE ASSOCIATE ATTORNEY ?Results: 2B ?? enign Findings ? Date of Service: 06/15/22 ?Follow Up: 1 Year From Orig ?? inal Mammogram ? Procedure(s): MM tomosynthesis screening BI ?? Accession Number(s): [id number] ? cc: Shruthi Mohamud CORPORATE ASSOCIATE ATTORNEY ? EXAMINATION: ?? MM SCREENING DIGITAL BREAST TOMOSYNTHESIS, BILATERAL ? CLINICAL INFORMATION: ? Screening. Asymptomatic. History benign right ultrasound-guided biopsy ?? 12/23/2018. ? The lifetime risk of breast cancer based on the Tyrer-Cuzick Model is ?? 9%. ? COMPARISON: ?? Multiple prior breast mammogram and ultrasound studies, most recent ?? mammography unilateral 04/07/2021. ? TECHNIQUE: ?? Digital breast tomosynthesis is performed in both the craniocaudal and ?? mediolateral oblique views along with computer-aided detection (CAD). ?? Synthesized 2D images are generated from the tomosynthesis. ? FINDINGS: ?? The breasts are heterogeneously dense, which may obscure small masses ?? (ACR BI-RADS breast composition Category c). ? There is a diffuse bilateral fibrocystic parenchymal pattern with ?? multiple oval and round and smooth waxing and waning masses. Numerous ?? cysts noted on prior ultrasound studies. Largest mass on left is smooth ?? anterior upper outer left breast 2.7 cm. Largest mass on right is ?? smooth anterior approximately 2.0 cm. No architectural abnormality. ? There are scattered bilateral round calcifications, greater anteriorly. ?? Right breast again has biopsy clip marker posterior central 12:00 ?? position. The axilla and skin contours are unremarkable. ? MM/MM tomosynthesis screening BI ?? IMPRESSION: ?? Diffuse fibrocystic parenchymal pattern with multiple waxing and waning ?? masses. ? ASSESSMENT: ? BI-RADS 2: Benign ? RECOMMENDATION: ?? -Routine annual mammography screening. ? -Given the breast density and fibrocystic pattern, patient may benefit ?? from bilateral additional adjunct screening breast ultrasound. ? This patient's information was entered into a reminder system with a ?? target due date for their next mammogram. ? Dictated By: ?Kain Abel MD ? Signed By: ?<Electronically signed by Kain Abel MD in OV> ?06/18/22 0840 ? DD/ 1024 ? TD/TT: ? Specialty Plant Supervisor: MORRIS ? Procedure Note Cory, Christina - 06/18/2022 [facility] [address] [place] [address] Mammography Report Signed Patient: Yeni Padilla#: [id number] : 1970Acct:[id number] Age/Sex: 51 / FADM Date: 06/15/22 Loc: HO.MAMMO Attending Dr: Rufina Wolfe SOLE SKIVER Ordering Physician: Shruthi Mohamud FNPResults: 2B enign Findings Date of Service: 06/15/22Follow Up: 1 Year From Orig inal Mammogram Procedure(s): MM tomosynthesis screening BI Accession Number(s): [id number] cc: Shruthi Mohamud CORPORATE ASSOCIATE ATTORNEY EXAMINATION: MM SCREENING DIGITAL BREAST TOMOSYNTHESIS, BILATERAL CLINICAL INFORMATION: Screening. Asymptomatic. History benign right ultrasound-guided biopsy 12/23/2018. The lifetime risk of breast cancer based on the Tyrer-Cuzick Model is 9%. COMPARISON: Multiple prior breast mammogram and ultrasound studies, most recent mammography unilateral 04/07/2021. TECHNIQUE: Digital breast tomosynthesis is performed in both the craniocaudal and mediolateral oblique views along with computer-aided detection (CAD). Synthesized 2D images are generated from the tomosynthesis. FINDINGS: The breasts are heterogeneously dense, which may obscure small masses (ACR BI-RADS breast composition Category c). There is a diffuse bilateral fibrocystic parenchymal pattern with multiple oval and round and smooth waxing and waning masses. Numerous cysts noted on prior ultrasound studies. Largest mass on left is smooth anterior upper outer left breast 2.7 cm. Largest mass on right is smooth anterior approximately 2.0 cm. No architectural abnormality. There are scattered bilateral round calcifications, greater anteriorly. Right breast again has biopsy clip marker posterior central 12:00 position. The axilla and skin contours are unremarkable. MM/MM tomosynthesis screening BI IMPRESSION: Diffuse fibrocystic parenchymal pattern with multiple waxing and waning masses. ASSESSMENT: BI-RADS 2: Benign RECOMMENDATION: -Routine annual mammography screening. -Given the breast density and fibrocystic pattern, patient may benefit from bilateral additional adjunct screening breast ultrasound. This patient's information was entered into a reminder system with a target due date for their next mammogram. Dictated By: Kain Abel MD Signed By: <Electronically signed by Kain Abel MD in OV> 06/18/22 0840 DD/ 1024 TD/TT: Specialty Plant Supervisor: MORRIS [facility] External Provider IMG BI PROCEDURES Final Result from Last 3 Months or Most Recently Relevant to Health Maintenance Insurance [facility] C3 HSN FULL Care Teams Wardrobe Specialty Worker Relationship Specialty Start Date End Date Celia Valadez NP [address] [place] [id number] PCP - General Family Medicine 12/21/22
--- OUTSIDE RECORDS SUMMARY | 2024-05-20 19:14 | XMS_ITS | Patient Health Record ---
[facility] Address [address] [place] [address] Care Team Providers Care College Recruiter Name Role Phone NONE, NONE Primary Care Provider Broderick Proctor Unavailable [phone] Reason For Referral No Information Plan Of Treatment No Information Insurance Providers Payer Name Payer Address Payer Phone Subscriber Number Group Number Insured Name Patient Relationship to Insured Coverage Start Date Coverage End Date [facility] [address] [facility] [place] [phone] [id number] PETER GONZALEZ Self - patient is the insured
--- OUTSIDE RECORDS SUMMARY | 2024-05-20 19:14 | XMS_ITS | Encounter Summary ---
Author Organization [employer] [facility] Address [address] [facility] [address] [place] [address] Care Team Providers Care Investment Recovery Technician Name Role Phone Celia Valadez NP Primary Care Provider [phone] Encounter Details Date Type Department Care Team (Latest Contact Info) Description 05/12/2024 Travel Social History Tobacco Use Types Packs/Day Years [...] on filedocumented in this encounter Care Teams Investment Recovery Technician Relationship Specialty Start Date End Date Celia Valadez NP [address] [place] [id number] PCP - General Family Medicine 12/21/22 documented as of this encounter
== END 2024-05-20 16:12 | disposition home or self-care (01) ==
LOC: HO.MRI 16:11
PROVIDERS: PCP Internal Medicine; Visit Provider Internal Medicine
DX: M54.6 Pain in thoracic spine (principal)
CPT/HCPCS: 72146

== ENCOUNTER → 2024-05-20 16:16 | Outpatient (BNV) | payer MEDICAID, SELFPAY | PROVIDERS: PCP Internal Medicine; Visit Provider Radiology Diagnostic Radiology | DX: M47.814 Spondylosis without myelopathy or radiculopathy, thoracic region (principal) | CPT/HCPCS: 72146 ==

== ENCOUNTER 2024-06-11 14:04 | Outpatient (AMB) | payer MEDICAID, SELFPAY ==
[2024-06-11 14:06] VITALS: BP 141/80; PULSE 92; O2SAT 99; BMI 23.2
--- NOTE | 2024-06-11 14:06 | MHC.OFFVIS ---
Vital Signs 06/11/24 14:06 Height 5 ft 4 in Weight 135 lb 6 oz BMI 23.2 BP 141/80 H Blood Pressure Location Lt brachial Position Sitting Pulse 92 Pulse Source Pulse Oximeter Pulse Oximetry (%) 99 Oxygen Delivery Method Room Air Intake Visit Reasons: Thoracic disc herniation Auto Bumper Straightener Required: Yes Auto Bumper Straightener Language: Powered Bridge Specialist Services: Auto Bumper Straightener Present Auto Bumper Straightener Name: Kat Grant ([id number]) Allergies No Known Allergies Allergy (Verified 06/11/24 14:23) HPI Comments Details: Mary Beth is very pleasant [place]-speaking 53 years old female who presents in my office with complain on pain in the entire spine. She reports moderate pain in the upper thoracic spine severe pain in the midthoracic spine as well as moderate to mild pain in the lumbar spine. She also reports severe pain in bilateral knees. She reported that she is suffering from this pain for many years. She stated that in the past 3 months her pain became aggravated. Because of her pain she can not sleep normally but she can do activities of daily living, she can take care of herself, she can not function normally. She is currently unemployed. She reports that heat and cold applications make her pain better. Also oral medications improve her pain. The pain is most severe in the morning. In terms of tissue damage he reports her pain as stabbing, sharp, tearing sensation. She had physical therapy ordered for her 5 years ago however she never went for physical therapy. She had MRI of the thoracic spine and x-ray of the lumbar spine dictated as below. She never had any injections in the past. She is taking Motrin 800 mg to help her pain. She also taking cyclobenzaprine 5 mg to help her pain. Her past medical history significant for anxiety and anemia as well as arthritis. Surgical history significant for colectomy and . She admits smoking cigarettes 1 pack per day. She denies drinking alcohol. She drinks coffee and caffeinated beverages 5 cups a day. She is using marijuana 4 times a day. 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 [facility] Medical History Family history of anesthesia complication Anemia COVID-19 vaccine series completed Anxiety Arthritis Surgical History History of colectomy Hx of appendectomy History of H/O colonoscopy Family History Mother Diabetes Father Colon cancer Diabetes Hypertension Paternal Aunt Breast cancer Social History Household Members: Family Housing: Apartment Are you a primary acute care registered nurse to a significant other at home: No Do you presently have visiting nurse or other home services: No Alcohol intake: unknown Patient Tobacco Use Status: Current everyday Tobacco user Tobacco use type: Cigarette Cigarette Packs Per Day: 1 Cigarettes Per Day: 20.0 Years Smoked: 33 Second Hand Smoke Exposure: No Substance Use Type: Marijuana service: No Current occupational status: unemployed Review of Systems Const All systems reviewed & are unremarkable except as noted in HPI and below ENT Reports Normal hearing present Neuro Reports Normal hearing present, Denies Abnormal speech present and Denies Sensory deficit (Neuro) Physical Exam Vital Signs: Last Vital Signs Pulse 92 06/11/24 14:06 BP 141/80 H 06/11/24 14:06 Pulse Ox 99 06/11/24 14:06 Oxygen Delivery Method Room Air 06/11/24 14:06 BMI result Body Mass Index 23.2 Const General: no acute distress, well developed, alert, awake and Physically active Nutritional Appearance: average body habitus and well nourished Orientation/consciousness: patient oriented x3 Eyes General: appearance normal, both eyes and all related structures Pupils: Equal, round and reactive pupils present EOM: EOMs intact bilaterally Neck Neck: Yes full ROM Chest Chest palpation & inspection: normal inspection of the chest Resp Effort & Inspection: normal respiratory effort, able to speak in complete sentences, normal respiratory pattern, no audible wheezes and no cough Cardio Jugular venous distension: no JVD GI Inspection: Yes normal to inspection Back/Spine/Pelvis Other: Able to stand on bilateral tiptoes in bilateral heels without difficulty. Flexing forward aggravates her pain. Flexing backwards does not affects her pain. Neuro General: patient oriented x3 and gait normal Cranial nerves: Yes CN's II-XII intact bilaterally, Yes Equal, round and reactive pupils present, Yes Normal hearing present and Yes Ability to bilaterally elevate shoulders present Speech: No Abnormal speech present Gait exam (Neuro): Normal gait present Motor exam (neuro): 5/5 motor strength present throughout Sensory Exam: No Sensory deficit (Neuro) Extrem General: No pedal edema Psych Speech and movement: Normal speech and movement present Affect: normal affect Attitude: cooperative Thought process: Normal thought process present Thought content: Normal thought content present Insight: Good insight present (Psych) Judgement: Good judgement present (Psych) Results Reviewed Results Reviewed: X-ray lumbar spine 07/11/2023 The lumbar vertebra have normal height and alignment. The anterior and posterior elements are intact. Chronic mild narrowing of the disc space in very small anterior traction osteophytes at L3-L4. Also small anterior vertebral osteophytes are seen on this level and other level of the lumbar spine. There is minimal narrowing of the disc space at L5-S1. No evidence of pars defect. No vertebral compression fractures. Small Schmorl's nodes seen at some of the vertebral endplates. No suspicious osseous lesions. Sacrum and sacroiliac joints are unremarkable. Impression no acute abnormalities in lumbar sacral spine no fracture or malalignment. Mild spondylosis of the lumbar spine is noted. MRI of the thoracic spine 05/20/2024. Findings: Multilevel disc desiccation T4 through T9. Multilevel marginal osteophyte formation T8 and T1. Multilevel Schmorl's nodes T8 and L2 level. Bone marrow irregularity at C5-C6 no fully included. There is normal alignment. The thoracic spinal cord caliber and signal is normal. No cord compression from T1-T12. Conus medullaris and small central herniated disc at T8-T9 without compression upon neural elements. No prevertebral compartment hematoma muscle fluid collection. Descending thoracic aortic caliber and fall flow void are normal. Hyperintense T2 lesion upper pole right kidney. There is exophytic 1.1 cm intermediate T2 signal lesion upper pole midportion left kidney. 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 Her pain mostly related to spondylosis of the thoracic spine. With good physical therapy efforts she may prove her pain significantly. If not I will offer her sprint PNS for thoracic spine bilateral for intractable back pain. Incidental finding on her MRI with a cyst in her kidney apparently was addressed by primary care physician, according to the patient she was referred to nephrology office to evaluate this condition ultrasound. I recommended her to complete at least 6 sessions of physical therapy and schedule appointment with me upon completion of 6 sessions of physical therapy and home exercise program. Orders: Orders PT Evaluation and Treatment Today G89.4 - Chronic pain syndrome, M47.814 - Spondylosis without myelopathy or radiculopathy, thoracic region, M51.34 - Other intervertebral disc degeneration, thoracic region, M54.9 - Dorsalgia, unspecified Patient Instructions: I here by testify that I spent 45 minutes in conversation with this patient as well as planning her care and organizing this note. city surveyor for voice [phone] was helping today to interpret this conversation in [place] African. 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
== END 2024-06-11 15:14 | disposition home or self-care (01) ==
LOC: HO.PMC 14:05
PROVIDERS: PCP Internal Medicine; Referring Provider Internal Medicine; Visit Provider Anesthesiology
DX: M54.9 Dorsalgia, unspecified (principal); G89.4 Chronic pain syndrome; M47.814 Spondylosis without myelopathy or radiculopathy, thoracic region; M51.34 Other intervertebral disc degeneration, thoracic region
CPT/HCPCS: 99204

== ENCOUNTER → 2024-06-11 14:04 | Outpatient (BNVA) | payer MEDICAID, SELFPAY | PROVIDERS: PCP Internal Medicine; Referring Provider Internal Medicine; Visit Provider Anesthesiology | DX: G89.4 Chronic pain syndrome (principal); M47.814 Spondylosis without myelopathy or radiculopathy, thoracic region; M51.34 Other intervertebral disc degeneration, thoracic region | CPT/HCPCS: 99202 ==

== ENCOUNTER 2024-08-18 09:38 | Outpatient (AMB) | payer MEDICAID, SELFPAY ==
--- NOTE | 2024-08-18 10:38 | A.OFFVIS_ITS ---
Intake Visit Reasons: kidney lesion Intake Note: Patient is present for KIDNEY LESION Urology Medication:NONE Antibiotic Allergy:NONE Blood Thinner:NONE Medieval English Literature Professor Required: No Allergies No Known Allergies Allergy (Verified 08/18/24 10:39) HPI Comments Details: Mary Beth is a pleasant Nicaraguan-speaking female. She is a patient of Dr. Agudelo. She is seen for the following urologic conditions - question renal mass Nicaraguan translation provided by qualified medical research associate Recent evaluation for lumbar spine issues 1.1 cm lesions seen exophytic off upper pole left kidney Reported is indeterminate T2 signal Recommend dedicated contrast cross-sectional study [facility] Medical History Family history of anesthesia complication Anemia COVID-19 vaccine series completed Anxiety Arthritis Surgical History History of colectomy Hx of appendectomy History of H/O colonoscopy Family History Mother Diabetes Father Colon cancer Diabetes Hypertension Paternal Aunt Breast cancer Social History Household Members: Family Housing: Apartment Are you a primary manager intensive care to a significant other at home: No Do you presently have visiting nurse or other home services: No Alcohol intake: unknown Patient Tobacco Use Status: Current everyday Tobacco user Tobacco use type: Cigarette Cigarette Packs Per Day: 1 Cigarettes Per Day: 20.0 Years Smoked: 33 Second Hand Smoke Exposure: No Substance Use Type: Marijuana service: No Current occupational status: unemployed Review of Systems Const Denies chills and Denies fever(s) Card Reports no additional complaints and Denies syncope Resp Denies cough GI Denies abdominal pain and Denies heartburn Reports as per HPI and Denies change in libido Neuro Denies syncope Psych Denies change in libido Endo Denies change in libido Physical Exam Const General: cooperative, healthy appearing, comfortable and no acute distress Orientation/consciousness: patient oriented x3 HEENT Face and sinus: Yes normal facial exam Mouth: moist mucous membranes Neck Neck: Yes normal visual inspection, Yes full ROM and Yes trachea midline Chest Chest palpation & inspection: normal inspection of the chest Resp Effort & Inspection: normal respiratory effort, able to speak in complete sentences and no respiratory distress GI Inspection: Yes normal to inspection Back/Spine/Pelvis Cervical Spine: normal cervical lordosis Thoracic/Lumbar Spine: thoracic and lumbar spine normal to inspection Skin General skin exam: no rashes or lesions noted Neuro General: patient oriented x3, gait normal, tone normal and moves all extremities Extrem General: Yes normal to inspection and Yes capillary refill normal Results AMB Urinalysis, Automated UA Leukoctes 15 Fred/uL Last Edit by LAURA Simmons on 08/18/24 10:36 UA Nitrite Negative Last Edit by Korina Tomlin [facility] on 08/18/24 10:36 UA Urobilinogen 3.5 mg/dL Last Edit by Korina Tomlin [facility] on 08/18/24 10:3 6 UA Protein 15 mg/dL [facility] on 08/18/24 10:36 UA pH 6.0 Last Edit by Korina Tomlin [facility] on 08/18/24 10:36 UA Blood 0 Yunior/uL Last Edit by Korina Tomlin [facility] on 08/18/24 10:36 UA Specific [place] 1.020 Last Edit by Korina Tomlin [facility] on 08/18/24 10: 36 UA Ketone Negative Last Edit by Korina Tomlin [facility] on 08/18/24 10:36 UA Bilirubin 0 mg/dL Last Edit by Korina Tomlin [facility] on 08/18/24 10:36 UA Glucose 0 mg/dL Last Edit by Korina Tomlin [facility] on 08/18/24 10:36 Results Reviewed Results Reviewed: Laboratory Last Values Urine pH (Auto) 6.0 08/18/24 10:36 Specific [place] (Auto) 1.020 08/18/24 10:36 Urine Protein (Auto) 15 mg/dL 08/18/24 10:36 Glucose (UA)(Auto) 0 mg/dL 08/18/24 10:36 Urine Ketones (Auto) Negative 08/18/24 10:36 Urine Blood (Auto) 0 Yunior/uL 08/18/24 10:36 Urine Nitrite (Auto) Negative 08/18/24 10:36 Urine Bilirubin (Auto) 0 mg/dL 08/18/24 10:36 Urine Urobilinogen (Auto) 3.5 mg/dL 08/18/24 10:36 Leukocyte Esterase (Auto) 15 Fred/uL 08/18/24 10:36 Assessment & Plan Assessment & Plan (1) Complex renal cyst: Code(s): N28.1 - Cyst of kidney, acquired Category: Medical Plan Renal contrast imaging Postprocedure appointment Orders: Orders AMB Urinalysis Automated Today Z13.9 - Encounter for screening, unspecified MR abdomen wo/w con Today N28.1 - Cyst of kidney, acquired Patient Instructions: This note is constructed using voice recognition software. While every effort has been made to ensure accuracy fitness consultant errors may have been included. Imaging studies, laboratory and physical exam results were discussed and reviewed in detail. No major barriers to patient understanding were identified. An opportunity to ask questions regarding the treatment plan was provided. All questions were answered. The patient expressed understanding and agreement with the above treatment plan. The patient is aware they should contact our office by phone for worsening of their current condition or the appearance of new urologic symptoms. Compliance is encouraged with any medications and followup testing that is ordered. It is a privilege to participate in the urologic care of your patient. If you have any questions or concerns regarding treatment for the above conditions, or other urologic issues, please do not hesitate to contact me. The office telephone contact is [phone]. Sincerely, Dr Oneal Pham MD, [facility] - Urology Compassionate Specialist Care for the Genitourinary System Coding Level of Care Code New Pt Level 3 (57051) Diagnoses Complex renal cyst N28.1
--- OUTSIDE RECORDS SUMMARY | 2024-08-18 10:46 | XMS_ITS | Encounter Summary ---
Author Organization [employer] Address [address] [facility] [address] [place] [address] Care Team Providers Care Clerical Office Name Role Phone Celia Valadez NP Primary Care Provider [phone] Reason for Visit * Reason Comments Med Refill Encounter Details Date Type Department Care Team (Late Contact Info) Description 06/23/2024 Refill [facility] [address] [place] [address] Mariama Fortune MD [address] [place] [address] Acute right-sided thoracic back pain Social History Tobacco Use Types Packs/Day Years [...] encounter Miscellaneous Notes * Telephone Encounter - Celia Valadez NP - 06/24/2024 1:42 PM EDT Needs to be re-evaluated for continued use documented in this encounter Plan of Treatment Upcoming Encounters Date Type Department Care Team (Late Contact Info) Description 09/09/2024 9:30 AM EDT Office Visit [facility] [address] [place] [address] Celia Valadez NP [address] [place] [address] documented as of this encounter Visit Diagnoses Diagnosis Acute right-sided thoracic back pain documented in this encounter Care Teams Clerical Office Relationship Specialty Start Date End Date Celia Valadez NP [address] [place] [address] PCP - General Family Medicine 12/21/22 documented as of this encounter
== END 2024-08-18 11:17 | disposition home or self-care (01) ==
LOC: HO.HUSH 09:38
PROVIDERS: PCP Internal Medicine; Visit Provider Urology
DX: Z13.9 Encounter for screening, unspecified (principal); N28.1 Cyst of kidney, acquired
CPT/HCPCS: 99203

== ENCOUNTER → 2024-08-18 09:38 | Outpatient (BNVA) | payer MEDICAID, SELFPAY | PROVIDERS: PCP Internal Medicine; Visit Provider Urology | DX: N28.1 Cyst of kidney, acquired (principal) | CPT/HCPCS: 81003; 99202 ==

== ENCOUNTER 2024-10-18 12:11 | Outpatient (REF) | payer MEDICAID, SELFPAY ==
--- NOTE | ~2024-10-18 | MR_ITS ---
EXAMINATION: MR ABDOMEN WITHOUT THEN WITH IV CONTRAST HISTORY: N28.1 - Cyst of kidney, acquired COMPARISON: Correlation is made with an MRI of the thoracic spine dated 05/20/[address] of the abdomen with contrast dated 01/04/2021.. TECHNIQUE: Axial in and out of phase T1-weighted gradient echo, axial diffusion weighted, and axial and coronal HASTE T2 with fat saturation images were obtained through the abdomen. Subsequently, fat suppressed axial and coronal T1-weighted images were obtained after the intravenous administration of 6 mL Gadavist. FINDINGS: Liver: There is no loss of signal intensity in the liver on opposed phase imaging to suggest steatosis. There is a 9 mm cyst in segment VIII and an 8 mm cyst in segment IV. There is no enhancing liver mass. The hepatic and portal veins are patent. There is no intrahepatic biliary dilatation. Gallbladder/biliary tree: No gallstones are identified. The common bile duct is normal in caliber. No intraluminal filling defects are identified to suggest choledocholithiasis. Spleen: The spleen is unremarkable. Pancreas: There are cystic foci in the pancreatic tail measuring 9 mm (series 6, image 21) and 10 mm (series 7, image 20). No definite connection to the pancreatic duct. There is no enhancing pancreatic mass. The pancreatic duct is normal in caliber. Adrenals: The adrenal glands are unremarkable. Kidneys: There is a 2.4 cm cyst at the upper pole of the right kidney. There is a 1.1 cm lesion at the upper pole of the left kidney which is hyperintense on T2 and in phase T1-weighted images and demonstrates fat suppression. There is mild rim enhancement as well as enhancement of a central nodular area. Findings are consistent with an angiomyolipoma. There is no hydronephrosis. Lymph nodes: There is no retroperitoneal lymphadenopathy in the upper abdomen. Fluid: There is no ascites in the upper abdomen. Visualized bowel: The visualized small and large bowel loops are unremarkable in appearance. Visualized bones: The visualized bones demonstrate normal marrow signal intensity. Incidental note is made of numerous cysts in the visualized portions of both breasts. MR/MR abdomen wo/w con IMPRESSION: 1. 1.1 cm angiomyolipoma at the upper pole of the left kidney corresponding to the abnormality seen on thoracic spine MRI. 2. Hepatic and right renal cysts as described. 3. Cystic foci in the pancreatic tail which may represent IPMNs. A follow-up examination in 6 months is recommended. Electronically signed by: Broderick Ruiz MD 10/19/2024 07:53 AM EDT
--- OUTSIDE RECORDS SUMMARY | 2024-10-18 12:13 | XMS_ITS | Patient Health Record ---
Author Organization [facility] Address [address] [place] [address] Care Team Providers Care Camera Assembler Name Role Phone NONE, NONE Primary Care Provider Broderick Proctor Unavailable [phone] Reason For Referral No Information Plan Of Treatment No Information Insurance Providers Payer Name Payer Address Payer Phone Subscriber Number Group Number Insured Name Patient Relationship to Insured Coverage Start Date Coverage End Date MEDICAID OF [facility] [address] [place] [id number] PETER GONZALEZ Self - patient is the insured
--- OUTSIDE RECORDS SUMMARY | 2024-10-18 12:14 | XMS_ITS | Clinical Summary ---
Author Organization [employer] [facility] ity Address [address] [place] [address] Care Team Providers Care Hardware Developer Name Role Phone Unavailable Primary Care Provider [...] Vaccines (1 of 2) 10/03/2021 COVID-19 Vaccine (1 - 2023-2 5 season) 2023 Depression Screening 03/18/2024 Influenza Vaccine (#1) 2024 HIB Vaccines Aged Out No longer eligi [...] age to complete this topic Meningococcal B Vaccine Aged Out No l onger eligible based on patient's age to complete this topic RSV Immunization Patients Un iker 20 months Aged Out No longer eligible b ased on patient's age to complete this topic Varicella Vaccines Aged Out No longer eligible based on patient's age to complete this topic
== END 2024-10-18 12:12 | disposition home or self-care (01) ==
LOC: HO.MRI 12:11
PROVIDERS: PCP Nurse Practitioner; Visit Provider Urology
DX: N28.1 Cyst of kidney, acquired (principal)
CPT/HCPCS: 74183; A9585

== ENCOUNTER → 2024-10-18 12:21 | Outpatient (BNV) | payer MEDICAID, SELFPAY | PROVIDERS: PCP Nurse Practitioner; Visit Provider Radiology Diagnostic Radiology | DX: D17.71 Benign lipomatous neoplasm of kidney (principal) | CPT/HCPCS: 74183 ==

== ENCOUNTER 2024-10-23 14:00 | Outpatient (AMB) | payer MEDICAID, SELFPAY ==
--- NOTE | 2024-10-23 14:01 | A.OFFVIS_ITS ---
Intake Visit Reasons: 2m MRI Intake Note: Patient is present for 2 mo follow up Urology Medication:NONE Antibiotic Allergy:NONE Blood Thinner:NONE Imaging System Administrator Required: No Accompanied by: Self / Same As Patient Allergies No Known Allergies Allergy (Verified 10/23/24 14:02) HPI Comments Details: Mary Beth is a pleasant Danish-speaking female. She is a patient of Dr. Agudelo. She is seen for the following urologic conditions - angiomyolipoma Danish translation provided by qualified medical economics consultant Discussed imaging findings Angiomyolipoma Reassurance provided 12 month follow-up Angiomyolipoma Detected during evaluation for lumbar spine pain Imaging - Spinal MRI - 1.1 cm lesions seen exophytic off upper pole left kidney - Renal MRI - There is a 2.4 cm cyst at the upper pole of the right kidney. There is a 1.1 cm lesion at the upper pole of the left kidney. Findings are consistent with an angiomyolipoma. [facility] Medical History (Updated 10/23/24 @ 14:46 by Oneal Pham MD) Complex renal cyst Family history of anesthesia complication Anemia COVID-19 vaccine series completed Anxiety Arthritis Surgical History History of colectomy Hx of appendectomy History of H/O colonoscopy Family History Mother Diabetes Father Colon cancer Diabetes Hypertension Paternal Aunt Breast cancer Social History Household Members: Family Housing: Apartment Are you a primary resident care provider to a significant other at home: No Do you presently have visiting nurse or other home services: No Alcohol intake: unknown Patient Tobacco Use Status: Current everyday Tobacco user Tobacco use type: Cigarette Cigarette Packs Per Day: 1 Cigarettes Per Day: 20.0 Years Smoked: 33 Second Hand Smoke Exposure: No Substance Use Type: Marijuana service: No Current occupational status: unemployed Review of Systems Const Denies chills and Denies fever(s) Card Reports no additional complaints and Denies syncope Resp Denies cough GI Denies abdominal pain and Denies heartburn Reports as per HPI and Denies change in libido Neuro Denies syncope Psych Denies change in libido Endo Denies change in libido Physical Exam Const General: cooperative, healthy appearing, comfortable and no acute distress Orientation/consciousness: patient oriented x3 HEENT Face and sinus: Yes normal facial exam Mouth: moist mucous membranes Neck Neck: Yes normal visual inspection, Yes full ROM and Yes trachea midline Chest Chest palpation & inspection: normal inspection of the chest Resp Effort & Inspection: normal respiratory effort, able to speak in complete sentences and no respiratory distress GI Inspection: Yes normal to inspection Back/Spine/Pelvis Cervical Spine: normal cervical lordosis Thoracic/Lumbar Spine: thoracic and lumbar spine normal to inspection Skin General skin exam: no rashes or lesions noted Neuro General: patient oriented x3, gait normal, tone normal and moves all extremities Extrem General: Yes normal to inspection and Yes capillary refill normal Assessment & Plan Assessment & Plan (1) Angiomyolipoma: Code(s): D17.9 - Benign lipomatous neoplasm, unspecified Category: Medical Plan Twelve-month follow-up renal ultrasound Orders: Orders US renal BI 12 Months D17.9 - Benign lipomatous neoplasm, unspecified Patient Instructions: This note is constructed using voice recognition software. While every effort has been made to ensure accuracy oil field laborer errors may have been included. Imaging studies, laboratory and physical exam results were discussed and reviewed in detail. No major barriers to patient understanding were identified. An opportunity to ask questions regarding the treatment plan was provided. All questions were answered. The patient expressed understanding and agreement with the above treatment plan. The patient is aware they should contact our office by phone for worsening of their current condition or the appearance of new urologic symptoms. Compliance is encouraged with any medications and followup testing that is ordered. It is a privilege to participate in the urologic care of your patient. If you have any questions or concerns regarding treatment for the above conditions, or other urologic issues, please do not hesitate to contact me. The office telephone contact is [phone]. Sincerely, Dr Oneal Pham MD, [facility] - Urology Compassionate Specialist Care for the Genitourinary System Coding Level of Care Code Est Pt Level 3 (89606) Diagnoses Angiomyolipoma D17.9
--- OUTSIDE RECORDS SUMMARY | 2024-10-23 14:02 | XMS_ITS | Patient Health Record ---
Author Organization [facility] Address [address] [place] [address] Care Team Providers Care Data Communications Technician Name Role Phone NONE, NONE Primary Care Provider Broderick Proctor Unavailable [phone] Reason For Referral No Information Plan Of Treatment No Information Insurance Providers Payer Name Payer Address Payer Phone Subscriber Number Group Number Insured Name Patient Relationship to Insured Coverage Start Date Coverage End Date MEDICAID OF [facility] [address] [place] [phone] [id number] PETER GONZALEZ Self - patient is the insured
--- OUTSIDE RECORDS SUMMARY | 2024-10-23 14:02 | XMS_ITS | Clinical Summary ---
Author Organization [employer] [facility] ity Address [address] [place] [address] Care Team Providers Care Ordnance Truck Installation Supervisor Name Role Phone Unavailable Primary Care Provider [...]
--- OUTSIDE RECORDS SUMMARY | 2024-10-23 14:02 | XMS_ITS | Encounter Summary ---
Author Organization [employer] Address [address] [facility] 7[address] [place] [address] Care Team Providers Care Scale Tester Name Role Phone Celia Valadez NP Primary Care Provider [phone] Reason for Referral * Imaging (Routine) - Authorized Specialty Diagnoses / Procedures Referred By Contac t Referred To Contact Radiology Diagnoses Breast mass in female Procedures BI Mammogram Diagnostic Tomosynthesis Bilateral Celia Valadez NP [address] [place] [address] Phone: tel: fax: [address] Phone: tel: fax: Referral ID Status Reason Start Date Expiration Date V isits Requested Visits Authorized [id number] Authorized 09/14/2024 09/14/2025 1 1 Encounter Details Date Type Department Care Team (Late st Contact Info) Description 09/14/2024 Orders Only [facility] [address] [place] [address] Celia Valadez NP [address] [place] [address] Breast mass in female (Primary Dx) Social History Tobacco Use Types Packs/Day Years Used Date Smoking Tobacco: Former Cigarettes Passive Smoke Exposure: Past Alcohol Use Standard Drinks/Week Comments Never 0 (1 standard drink = 0.6 oz pur e alcohol) Housing Stability Answer Date Recorded What is your housing situation today? I have housing today, but I am worried about losing housing in the future 09/09/[address] you li ve. Do you have problems with any of the following? None of the above 09/09/2024 Food Insecurity Answer Date Recorded Within the past 12 months, y ou worried that your food would run out before you got money to buy more: Never True 09/09/2024 Within the past 12 months,th e food you bought just didn't last and you didn't have enough money to get more: Never True Transportation Answer Date Recorded In the past 12 months, has l ack of transportation kept you from medical appts, meetings, work or from getting things needed for daily living? No 09/09/2024 Utilities Answer Date Recorded In the past 12 months, has t he electric, gas, oil or water company threatened to shut off services in your home? No 09/09/2024 Depression Answer Date Recorded Patient Health Questionnaire-2 Score 2 09/09/2024 Internet Access Answer Date Recorded Internet Access Q1 Yes 09/09/2024 Internet Access Q2 Not on file 09/09/2024 Comments No Sex and Gender Information Value Date Recorded Sex Assigned at Female 01/15/2022 10:21 AM EDT Legal Sex Female 10:21 AM EDT Gender Identity Female 01/15/2022 10:21 AM EDT Sexual Orientation Straight 01/15/2022 10 :21 AM EDT documented as of this encounter Plan of Treatment Scheduled Orders Name Type Priority Associated Diagnoses Orde r Schedule BI Mammogram Diagnostic Tomosynthesis Bilateral Imaging Routine Breast mass in female Expected: 09/14/2024, Expires: 11/14/2025 documented as of this encounter Visit Diagnoses Diagnosis Breast mass in female- Primary documented in this encounter Care Teams Scale Tester Relationship Specialty Start Date End Date Celia Valadez NP [address] [place] [id number] PCP - General Family Medicine 12/21/22 documented as of this encounter
== END 2024-10-23 14:47 | disposition home or self-care (01) ==
LOC: HO.HUSH 14:00
PROVIDERS: PCP Internal Medicine; Visit Provider Urology
DX: D17.9 Benign lipomatous neoplasm, unspecified (principal)
CPT/HCPCS: 99213

== ENCOUNTER → 2024-10-23 14:00 | Outpatient (BNVA) | payer MEDICAID, SELFPAY | PROVIDERS: PCP Internal Medicine; Visit Provider Urology | DX: Z71.2 Person consulting for explanation of examination or test findings (principal); D17.71 Benign lipomatous neoplasm of kidney | CPT/HCPCS: 99212 ==

== ENCOUNTER 2024-11-10 12:59 | Outpatient (REF) | payer MEDICAID, SELFPAY ==
--- NOTE | ~2024-11-10 | US_ITS ---
EXAMINATIONS: 1. MM DIAGNOSTIC DIGITAL BREAST TOMOSYNTHESIS, BILATERAL 2. Targeted ultrasound of the right breast CLINICAL INFORMATION: Right breast mass at 11:00-12:00 COMPARISON: Comparison made to multiple prior, most recent June 15, 2022, and most remote February 21, 2021. TECHNIQUE: Digital breast tomosynthesis is performed in both the craniocaudal and mediolateral oblique views along with computer-aided detection (CAD). Synthesized 2D images are generated from the tomosynthesis. A skin BB marker was placed in the upper outer quadrant of the right breast, indicating the location of the palpable concern. Best possible images according to the technologist's notes; limited mammography compression on the current and previous examinations due to tenderness. FINDINGS: BREAST COMPOSITION: The breasts are heterogeneously dense, which may obscure small masses (ACR BI-RADS breast composition Category c). RIGHT BREAST: Wax and wane pattern of multiple sonographically proven cysts. No significant masses, suspicious calcifications or other abnormalities are seen. Targeted ultrasound of the right breast was performed at the location of the palpable concern. The survey shows a 2.9 x 2.2 x 2.8 cm cyst at 10 o'clock position at 6 cm from the nipple with a small amount of dependent echogenic debris. Multiple additional simple cysts are seen in the vicinity, for example measuring 1.4 x 0.9 x 1.1 cm at the 11 o'clock position 2 cm from the nipple. LEFT BREAST: Wax and wane pattern of multiple sonographically proven cysts. No significant masses, suspicious calcifications or other abnormalities are seen. US/US breast RT limited mamm only IMPRESSION: RIGHT BREAST: Palpable concern correlates with a 2.9 cm complicated cyst at 10 o'clock position 6 cm from the nipple. Multiple additional simple cyst in the vicinity. Benign, no evidence of malignancy. Clinical follow-up is recommended. Otherwise, normal interval follow-up mammogram is recommended in 12 months. LEFT BREAST: Benign, no mammographic evidence of malignancy. Normal interval follow-up is recommended in 12 months. ASSESSMENT: BI-RADS 2 - Benign Findings RECOMMENDATION: 1. Patient should be managed based on the clinical impression. 2. Otherwise, routine annual screening mammography. Results were provided to the patient at time of visit by the technologist. This patient's information was entered into a reminder system with a target due date for their next mammogram. Electronically signed by: Pete Downing MD 11/10/2024 02:37 PM EDT RP
--- OUTSIDE RECORDS SUMMARY | 2024-11-10 13:46 | XMS_ITS | Clinical Summary ---
Author Organization [facility] ity Address [address] [place] [address] Care Team Providers Care Lead Pony Rider Name Role Phone Unavailable Primary Care Provider [...]
--- OUTSIDE RECORDS SUMMARY | 2024-11-10 13:46 | XMS_ITS | Patient Health Record ---
Author Organization [facility] Address [address] [place] [address] Care Team Providers Care Bellows Filler Name Role Phone NONE, NONE Primary Care Provider Broderick Proctor Unavailable [phone] Reason For Referral No Information Plan Of Treatment No Information Insurance Providers Payer Name Payer Address Payer Phone Subscriber Number Group Number Insured Name Patient Relationship to Insured Coverage Start Date Coverage End Date MEDICAID OF [facility] [address] [place] [id number] PETER GONZALEZ Self - patient is the insured
== END 2024-11-10 13:00 | disposition home or self-care (01) ==
LOC: HO.MAMMO 12:59
PROVIDERS: PCP Nurse Practitioner; Visit Provider Nurse Practitioner
DX: Z12.31 Encounter for screening mammogram for malignant neoplasm of breast (principal); N63.11 Unspecified lump in the right breast, upper outer quadrant
CPT/HCPCS: 76642; 77062; 77066

== ENCOUNTER → 2024-11-10 13:06 | Outpatient (BNV) | payer MEDICAID, SELFPAY | PROVIDERS: PCP Nurse Practitioner; Visit Provider Radiology Body Imaging | DX: N63.11 Unspecified lump in the right breast, upper outer quadrant (principal) | CPT/HCPCS: 76642; 77062; 77066 ==

== ENCOUNTER 2024-12-18 09:00 | Outpatient (RCR) | payer MEDICAID, SELFPAY | END 2025-01-04 07:37 | disposition home or self-care (01) | LOC: HO.PT 09:00 | PROVIDERS: PCP Nurse Practitioner; Visit Provider Nurse Practitioner | DX: M47.816 Spondylosis without myelopathy or radiculopathy, lumbar region (principal) | CPT/HCPCS: 97110; 97161 ==